=== PATIENT | male | born 1945 | race Caucasian/White ===

== ENCOUNTER 2022-05-20 14:34 | Outpatient (CLI) | payer MEDICARE, SELFPAY ==
[2022-05-21 15:17] LABS: Creatinine Urine, Random 144 mg/dL (39-259); Microalbum Creatinine Ratio Ur 7 mg/dL (0-20); Microalbumin Random Urine 1 ug/dL (0-20)
== END 2022-05-20 14:35 | disposition home or self-care (01) ==
LOC: LAB 14:38
PROVIDERS: PCP Family Medicine; Visit Provider Family Medicine
DX: E11.40 Type 2 diabetes mellitus with diabetic neuropathy, unspecified (principal); E78.5 Hyperlipidemia, unspecified; L29.9 Pruritus, unspecified
CPT/HCPCS: 80053; 80061; 82044; 83036; 84443

== ENCOUNTER → 2022-05-24 14:06 | Outpatient (BNVA) | payer MEDICARE, SELFPAY | PROVIDERS: PCP Family Medicine; Visit Provider Internal Medicine Cardiovascular Disease | DX: I42.2 Other hypertrophic cardiomyopathy (principal); Z95.810 Presence of automatic (implantable) cardiac defibrillator; E78.5 Hyperlipidemia, unspecified; E11.40 Type 2 diabetes mellitus with diabetic neuropathy, unspecified; Z79.4 Long term (current) use of insulin; Z79.84 Long term (current) use of oral hypoglycemic drugs; K21.9 Gastro-esophageal reflux disease without esophagitis | CPT/HCPCS: 93005; 99204 ==

== ENCOUNTER → 2022-06-14 09:41 | Outpatient (BNVA) | payer MEDICARE, SELFPAY | PROVIDERS: PCP Family Medicine; Visit Provider Podiatrist Foot & Ankle Surgery | DX: I73.9 Peripheral vascular disease, unspecified (principal); B35.1 Tinea unguium; G62.9 Polyneuropathy, unspecified; L84 Corns and callosities; E11.9 Type 2 diabetes mellitus without complications; Z79.4 Long term (current) use of insulin; M20.11 Hallux valgus (acquired), right foot; M20.12 Hallux valgus (acquired), left foot | CPT/HCPCS: 11056; 11721; 99204 ==

== ENCOUNTER → 2022-07-09 11:21 | Outpatient (BNVA) | payer MEDICARE, SELFPAY | PROVIDERS: PCP Family Medicine; Visit Provider Internal Medicine Cardiovascular Disease | DX: Z45.02 Encounter for adjustment and management of automatic implantable cardiac defibrillator (principal) | CPT/HCPCS: 93283 ==

== ENCOUNTER → 2022-08-23 10:48 | Outpatient (BNVA) | payer MEDICARE, OTHER, SELFPAY | PROVIDERS: PCP Family Medicine; Visit Provider Internal Medicine Cardiovascular Disease | DX: I42.2 Other hypertrophic cardiomyopathy (principal); Z95.810 Presence of automatic (implantable) cardiac defibrillator; E78.5 Hyperlipidemia, unspecified; Z79.4 Long term (current) use of insulin; G62.9 Polyneuropathy, unspecified; B35.1 Tinea unguium; L84 Corns and callosities; M20.11 Hallux valgus (acquired), right foot; M20.12 Hallux valgus (acquired), left foot | CPT/HCPCS: 11056; 11721; 99214 ==

== ENCOUNTER → 2022-10-25 09:41 | Outpatient (BNVA) | payer MEDICARE, OTHER, SELFPAY | PROVIDERS: PCP Family Medicine; Referring Provider Family Medicine; Visit Provider Internal Medicine | DX: E11.649 Type 2 diabetes mellitus with hypoglycemia without coma (principal); E78.5 Hyperlipidemia, unspecified; Z95.810 Presence of automatic (implantable) cardiac defibrillator; Z79.4 Long term (current) use of insulin; Z86.73 Personal history of transient ischemic attack (TIA), and cerebral infarction without residual deficits; Z79.02 Long term (current) use of antithrombotics/antiplatelets | CPT/HCPCS: 99204 ==

== ENCOUNTER 2022-11-01 11:42 | Outpatient (CLI) | payer MEDICARE, OTHER, SELFPAY | END 2022-11-01 11:43 | disposition home or self-care (01) | LOC: LAB 11:46 | PROVIDERS: PCP Family Medicine; Visit Provider Internal Medicine | DX: E11.42 Type 2 diabetes mellitus with diabetic polyneuropathy (principal); E78.5 Hyperlipidemia, unspecified; Z79.899 Other long term (current) drug therapy | CPT/HCPCS: 11721; 36415; 80053; 80061; 82044; 83036; 83721 ==

== ENCOUNTER → 2022-11-08 10:44 | Outpatient (BNVA) | payer MEDICARE, OTHER, SELFPAY | PROVIDERS: PCP Family Medicine; Visit Provider Internal Medicine | DX: E11.40 Type 2 diabetes mellitus with diabetic neuropathy, unspecified (principal); E11.649 Type 2 diabetes mellitus with hypoglycemia without coma; Z79.4 Long term (current) use of insulin; E78.5 Hyperlipidemia, unspecified | CPT/HCPCS: 99213; 99214 ==

== ENCOUNTER 2023-02-14 09:41 | Outpatient (CLI) | payer MEDICARE, OTHER, SELFPAY ==
[2023-02-14 10:59] LABS: Estmated Average Glucose 223; Hemoglobin A1C 9.4 % (4.0-6.0)
[2023-02-14 11:01] LABS: Alanine Aminotransferase 18 U/L (0-41); Albumin Level 3.8 g/dL (3.5-5.2); Alkaline Phosphatase 95 U/L (40-130); Anion Gap 12.8 (5-19); Aspartate Amino Transferase 17 U/L (0-40); Blood Urea Nitrogen 15 mg/dL (8-23); Calcium 8.8 mg/dL (8.5-10.5); Carbon Dioxide 23 mmol/L (22-29); Chloride 106 mmol/L (98-107); Cholesterol 183 mg/dL (0-200); Glucose 209 mg/dL (65-115); HDL Cholesterol 30 mg/dL (60-100); Osmolality Calculated 293 mOsm/kg (285-295); Potassium 3.8 mmol/L (3.5-5.1); Sodium 138 mmol/L (136-145); Total Bilirubin 0.2 mg/dL (0.15-1.2); Total Protein 6.8 g/dL (6.6-8.7); Triglycerides 811 mg/dL (0-150)
[2023-02-14 11:16] LABS: Creatinine Urine, Random 88 mg/dL (39-259); Microalbum Creatinine Ratio Ur 11 mg/dL (0-20); Microalbumin Random Urine 1 ug/dL (0-20)
[2023-02-14 11:56] LABS: LDL Cholesterol Direct 39 mg/dL (0-100)
== END 2023-02-14 09:42 | disposition home or self-care (01) ==
PROVIDERS: PCP Family Medicine; Visit Provider Internal Medicine
DX: E11.649 Type 2 diabetes mellitus with hypoglycemia without coma (principal); E78.5 Hyperlipidemia, unspecified; E11.40 Type 2 diabetes mellitus with diabetic neuropathy, unspecified; Z79.4 Long term (current) use of insulin
CPT/HCPCS: 36415; 80053; 80061; 82044; 83036; 83721; 99214

== ENCOUNTER 2023-02-19 14:00 | Emergency (ER) | payer MEDICARE, OTHER, SELFPAY ==
[2023-02-19] VITALS (8 sets, daily range): BP systolic 125–152; BP diastolic 59–76; PULSE 60–88; RESP 16–20; TEMP 36.8; O2SAT 95–99
--- NOTE | 2023-02-19 15:42 | XRR_ITS ---
PROCEDURE INFORMATION: Exam: XR Chest Exam date and time: 02/19/2023 4:24 PM Age: 78 years old Clinical indication: Pain; Chest pressure; Additional info: Cp TECHNIQUE: Imaging protocol: Radiologic exam of the chest. Views: 1 view. COMPARISON: No relevant prior studies available. FINDINGS: Tubes, catheters and devices: Dual lead pacemaker on the left. Lungs: Unremarkable. No consolidation. Pleural spaces: Unremarkable. No pleural effusion. No pneumothorax. Heart/Mediastinum: No significant cardiomegaly. Bones/joints: Visualized osseous structures show no acute abnormality. XR/XR chest 1V [id number] IMPRESSION: No acute cardiopulmonary abnormality.
--- NOTE | 2023-02-19 15:42 | ECG_ITS ---
[facility] Test Date: 2023-02-19 Pat Name: Chapito Mijares Department: Room: Gender: Male Theatre Manager: : 1945 Requested By: Emely Moya Order Number: [id number] Jacki MD: Lorraine Phoneix M.D. Measurements Intervals [place] Rate: 61 P: -30 VA: 157 QRS: -46 QRSD: 131 T: 12 QT: 474 QTc: 479 Interpretive Statements SINUS RHYTHM RIGHT BUNDLE BRANCH BLOCK [120+ ms QRS DURATION, UPRIGHT V1, 40+ ms S IN I/aVL/V4/V5/V6] LEFT ANTERIOR FASCICULAR BLOCK [QRS AXIS <= -45, QR IN I, RS IN II] No previous ECG available for comparison Electronically Signed On 02-19-2023 23:23:31 CDT by Lorraine Phoenix M.D. [id number]
[2023-02-19 16:25] LABS: Basophils # 0.2 10^3/uL (0.0-0.1); Basophils % 0.8 %; Eosinophils # 0.5 10^3/uL (0.0-0.8); Eosinophils % 2.4 %; Hematocrit 39.1 % (42.0-52.0); Hemoglobin 12.8 g/dL (11.7-16.6); Lymphocytes # 1.9 10^3/uL (0.8-4.8); Lymphocytes % 9.8 %; Mean Corpuscular HGB Conc 32.7 g/dL (30.0-36.0); Mean Corpuscular Hemoglobin 26.7 pg (28.0-34.0); Mean Corpuscular Volume 81.6 fl (80-94); Monocytes # 1.7 10^3/uL (0.2-0.9); Monocytes % 8.9 %; Neutrophils # 14.75 10^3/uL (1.8-7.7); Neutrophils % 77.5 %; Nucleated Red Blood Cells % 0 %; Platelet Count 260 10^3/cmm (130-400); Red Blood Count 4.79 10^6/uL (4.1-5.3); Red Cell Distribution Width 14.6 % (12.1-15.1)
--- NOTE | 2023-02-19 16:34 | ED_ITS ---
Documented by User: Arjun Lr 02/19/23 17:43 HPI - SOB/Dyspnea General: Chief Complaint: Shortness of Breath/Dyspnea Stated Complaint: cough, sob, chest pain Time Seen by Provider: 02/19/23 16:06 History of Present Illness: HPI Narrative: 78-year-old male presents emergency department chief complaint of midsternal left-sided chest pressure as well as shortness of breath is progressive getting worse over the last several days patient reports having a history of high blood pressure as well as a valve issue reports no prior history of ischemic heart disease reports no prior history cardiac caths does report a prior history requiring pacemaker placement patient reports having some ongoing chest pressure left-sided unrelated activity exertion eating or breathing patient reports mild shortness of breath he does not endorse any known history pneumonia bronchitis COPD asthma or emphysema patient also reports a mild productive cough with greenish sputum production. Per family at home patient has had no recent fevers or chills or any other associated symptoms he has had reduced appetite and oral intake and questionable lack of taste. Patient has not had any recent nausea vomiting or diarrhea he has had a prior COVID vaccination does not endorse any prior history of active COVID patient presents with the family to the ER for further assessment and management Associated symptoms: Reports chest pain; Deny abdominal pain, extremity pain, fever(s), nausea, palpitations or vomiting Review of Systems General: Reports: 10 or more systems reviewed and unremarkable except in HPI and below Const: Reports: change in appetite, fatigue and malaise; Denies: fever(s) or chills Eyes: Denies: change in vision or blurry vision Card: Reports: chest pain; Denies: palpitations Resp: Reports: dyspnea and productive cough GI: Denies: abdominal pain, nausea or vomiting : Denies: flank pain Musc: Denies: extremity pain or extremity swelling Skin/Breast: Denies: rash or pruritus Neuro: Denies: headache(s) Psych: Denies: anxiety or depression Shaq/Lymph: Denies: easy bleeding All/Imm: Denies: urticaria, throat swelling or facial swelling PFS ED PFSH: Medical History Depression, major, 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, uncontrolled Diabetic neuropathy GERD (gastroesophageal reflux disease) Hyperlipidemia Hypertrophic cardiomyopathy ICD (implantable cardioverter-defibrillator) in place Pacemaker Surgical History History of sinus surgery Status post excision of lipoma right axilla Family History Father Diabetes Hypertension CAD (coronary artery disease) Mother Diabetes Stroke Grandfather Dementia Son Diabetes Family/Other Lung disease Denies family history of Clotting disorder Chronic kidney disease (CKD) Suicide Anesthesia complication Bleeding disorder Cancer Social History Smoking and tobacco status: never smoked Alcohol intake: never Substance/Drug Use: never Lives independently: Yes Household members: spouse service: No Current occupational status: retired Current occupation: sales - [employer] Physical Exam Const: COMMON NORMALS: no acute distress, patient oriented x3 and healthy appearing HENMT: COMMON NORMALS: normocephalic and atraumatic HEAD & SCALP: normocephalic and atraumatic Eye: COMMON NORMALS: Equal, round and reactive pupils present and EOMs intact bilaterally PUPIL: Yes Equal, round and reactive pupils present Neck/C-Spine: COMMON NORMALS: full ROM, supple and no JVD Lymph: LYMPHATIC: no lymphadenopathy noted Chest: COMMONS NORMALS: normal inspection of the chest and normal palpation of entire chest wall Resp: COMMON NORMALS: normal respiratory effort, No retractions and clear to auscultation bilaterally EFFORT & INSPECTION: Yes able to speak in complete sentences and Yes symmetric chest movement AUSCULTATION: clear to auscultation bilaterally Cardio: COMMON NORMALS: no JVD, regular rate and regular rhythm RATE: regular rate RHYTHM: regular rhythm GI: COMMON NORMALS: Normal to inspection, nondistended, normoactive bowel sounds present, Soft to palpation and non-tender INSPECTION: Yes normal to inspection PALPATION: Yes Soft to palpation : COMMON NORMALS: Yes no CVA tenderness BLADDER/KIDNEY EXAM: Yes no CVA tenderness Back/Pelvis: COMMON NORMALS: no CVA tenderness Extremity: COMMON NORMALS: normal to inspection and full ROM Neuro: COMMON NORMALS: patient oriented x3, CN's II-XII intact bilaterally, moves all extremities and no focal motor deficits Psych: COMMON NORMALS: mental status grossly normal, Normal thought process present, cooperative and normal affect THOUGHT PROCESS: Normal thought process present Skin: COMMON NORMALS: no rashes or lesions noted GENERAL SKIN EXAM: no rashes or lesions noted Course Vital Signs: Vital signs: Vital Signs Temperature 98.2 F 02/19/23 14:12 Pulse Rate 60 02/19/23 21:01 Respiratory Rate 20 H 02/19/23 21:01 Blood Pressure 129/61 02/19/23 21:01 Pulse Oximetry 97 02/19/23 21:01 Oxygen Delivery Me thod Room Air 02/19/23 19:34 MDM - SOB/Dyspnea Medical Decision Making Due to patient's symptoms and condition IV established basic lab work imaging will be obtained we will continue to follow. EKG does not reveal any obvious acute changes. We will continue to follow patient's first troponin was found to be elevated in the 40s patient also with a white count of 19,000 will be obtained respiratory pathogen screen test as well as a COVID swab for further eval of respiratory issues patient also be provided some Decadron for shortness of breath. Underlying concerns of pneumonia versus bronchitis versus congestive heart failure versus others prominent we will continue to follow due to did patient's dyspnea and neck COVID-negative we will be obtaining a CTA of the chest for further eval . this patient was signed out to my colleague Dr. Blum at 1800 Lab Data 02/19/23 16:15 02/19/23 16:15 Labs/Radiology: Radiology Impressions Chest X-Ray 02/19/23 15:42 IMPRESSION: No acute cardiopulmonary abnormality. Chest CTA 02/19/23 17:30 IMPRESSION: 1. No CT findings to indicate pulmonary embolus. 2. Lung windows demonstrate small amount scattered ill-defined ground-glass opacity, which may indicate minimal edema or inflammation. No focal infiltrate or consolidation or effusion. 3. Mild atherosclerotic disease thoracic aorta and coronary arteries. 4. Upper limits of normal cardiac size. Dual lead pacemaker on the left. Laboratory Results WBC 19.0 10^3/uL (4.0-10.0) H 02/19/23 16:15 RBC 4.79 10^6/uL (4.1-5.3) 02/19/23 16:15 Hgb 12.8 g/dL (11.7-16.6) 02/19/23 16:15 Hct 39.1 % (42.0-52.0) L 02/19/23 16:15 MCV 81.6 fl (80-94) 02/19/23 16:15 MCH 26.7 pg (28.0-34.0) L 02/19/23 16:15 MCHC 32.7 g/dL (30.0-36.0) 02/19/23 16:15 RDW 14.6 % (12.1-15.1) 02/19/23 16:15 Plt Count 260 10^3/cmm (130-400) 02/19/23 16:15 MPV 10.0 fL (7.4-10.4) 02/19/23 16:15 Neut % (Auto) 77.5 % 02/19/23 16:15 Lymph % (Auto) 9.8 % 02/19/23 16:15 Campbell % (Auto) 8.9 % 02/19/23 16:15 Eos % (Auto) 2.4 % 02/19/23 16:15 Baso % (Auto) 0.8 % 02/19/23 16:15 Neut # (Auto) 14.75 10^3/uL (1.8-7.7) H 02/19/23 16:15 Lymph # (Auto) 1.9 10^3/uL (0.8-4.8) 02/19/23 16:15 Campbell # (Auto) 1.7 10^3/uL (0.2-0.9) H 02/19/23 16:15 Eos # (Auto) 0.5 10^3/uL (0.0-0.8) 02/19/23 16:15 Baso # (Auto) 0.2 10^3/uL (0.0-0.1) H 02/19/23 16:15 Nucleated RBC % (auto) 0 % 02/19/23 16:15 Nucleated RBCs # 0.0 /100WBC 02/19/23 16:15 Sodium 131 mmol/L (136-145) L 02/19/23 16:15 Potassium 4.2 mmol/L (3.5-5.1) 02/19/23 16:15 Chloride 98 mmol/L (98-107) 02/19/23 16:15 Carbon Dioxide 21 mmol/L (22-29) L 02/19/23 16:15 Anion Gap 16.2 (5-19) 02/19/23 16:15 BUN 12 mg/dL (8-23) 02/19/23 16:15 Creatinine 0.9 mg/dL (0.7-1.2) 02/19/23 16:15 GFR Calculation Not Reportable 02/19/23 16:15 Glucose 304 mg/dL (65-115) H 02/19/23 16:15 Calculated Osmolality 283 mOsm/kg (285-295) L 02/19/23 16:15 Calcium 9.0 mg/dL (8.5-10.5) 02/19/23 16:15 Total Bilirubin 0.6 mg/dL (0.15-1.2) 02/19/23 16:15 AST 13 U/L (0-40) 02/19/23 16:15 ALT 17 U/L (0-41) 02/19/23 16:15 Alkaline Phosphatase 90 U/L (40-130) 02/19/23 16:15 Troponin T Baseline 41 ng/L (0-15) H 02/19/23 16:15 Troponin T 120 Minute 36.63 ng/L (0-15) H 02/19/23 18:08 Delta Troponin T -4.37 ABS# (0-10) L 02/19/23 18:08 NT-Pro-B Natriuret Pep 433 pg/mL (0-450) 02/19/23 16:15 Total Protein 7.5 g/dL (6.6-8.7) 02/19/23 16:15 Albumin 3.9 g/dL (3.5-5.2) 02/19/23 16:15 Globulin 3.6 g/dL (1.3-4.6) 02/19/23 16:15 Urine Color Dark yellow (Yellow) 02/19/23 17:15 Urine Appearance Clear (CLEAR) 02/19/23 17:15 Urine pH 7 (5-7) 02/19/23 17:15 Ur Specific Clarissa 1.010 (1.005-1.030) 02/19/23 17:15 Urine Protein Neg (Negative) 02/19/23 17:15 Urine Glucose (UA) 4+ (Normal) H 02/19/23 17:15 Urine Ketones 1+ (Negative) H 02/19/23 17:15 Urine Blood Neg (Negative) 02/19/23 17:15 Urine Nitrate Negative (Negative) 02/19/23 17:15 Urine Bilirubin Neg (Negative) 02/19/23 17:15 Urine Urobilinogen Norm mg/dL (Negative) 02/19/23 17:15 Ur Leukocyte Esterase Trace (Negative) H 02/19/23 17:15 Urine RBC None /hpf (0-2) 02/19/23 17:15 Urine WBC 5-10 /hpf (0-5) H 02/19/23 17:15 Ur Squamous Epith Cells None /hpf (0-5) 02/19/23 17:15 Amorphous Sediment Not Reportable 02/19/23 17:15 Urine Bacteria 1+ /hpf (NONE) H 02/19/23 17:15 Nasal Influ A H1 2009 PCR Not detected (NOT DETECT) 02/19/23 17:34 Adenovirus (PCR) Not detected (NOT DETECT) 02/19/23 17:34 C. pneumoniae DNA (PCR) Not detected (NOT DETECT) 02/19/23 17:34 Coronavirus 229E (PCR) Not detected (NOT DETECT) 02/19/23 17:34 Human Metapneumovir PCR Not detected (NOT DETECT) 02/19/23 17:34 Influenza A (H1) PCR Not detected (NOT DETECT) 02/19/23 17:34 Influenza A (H3) PCR Not detected (NOT DETECT) 02/19/23 17:34 Influenza Type A (PCR) Not detected (NOT DETECT) 02/19/23 17:34 Influenza Type B (PCR) Not detected (NOT DETECT) 02/19/23 17:34 M. pneumoniae (PCR) Not detected (NOT DETECT) 02/19/23 17:34 Parainfluenza 1 (PCR) Not detected (NOT DETECT) 02/19/23 17:34 Parainfluenza 2 (PCR) Not detected (NOT DETECT) 02/19/23 17:34 Parainfluenza 3 (PCR) Not detected (NOT DETECT) 02/19/23 17:34 Parainfluenza 4 (PCR) Not detected (NOT DETECT) 02/19/23 17:34 RSV Type A (PCR) Not detected (NOT DETECT) 02/19/23 17:34 RSV Type B (PCR) Not detected (NOT DETECT) 02/19/23 17:34 Entero/Rhino (PCR) Not detected (NOT DETECT) 02/19/23 17:34 SARS-CoV-2 (PCR) Not detected (NOT DETECT) 02/19/23 17:34 SARS-CoV-2 Ag (Rapid) negative (Negative) 02/19/23 16:45 Discharge Plan Discharge Patient Disposition: Home Clinical Impression: Atypical pneumonia, Acute pleurisy without pleural effusion Condition: Stable Prescriptions: New ketorolac 10 mg tablet 10 mg PO TID PRN (Reason: pain) Qty: 10 0RF albuterol sulfate 90 mcg/actuation HFA aerosol inhaler 2 inh INHALATION Q4H PRN (Reason: shortness of breath or wheezing) Qty: 6.7 1RF levofloxacin 750 mg tablet 750 mg PO DAILY 7 Days Qty: 7 0RF No Action fluoxetine 20 mg capsule 20 mg PO DAILY gabapentin 300 mg capsule 300 mg PO BID aspirin 81 mg tablet,delayed release (DR/EC) 81 mg PO DAILY diphenhydramine HCl 25 mg tablet 25 mg PO DAILY PRN disopyramide phosphate 150 mg capsule 150 mg PO BID Rx Instructions: space evenly during waking hours Ultra CoQ10 75 mg capsule 300 mg PO DAILY mecobalamin (vitamin B12) 5,000 mcg tablet,disintegrating 5,000 mcg PO DAILY hydrocortisone 1 % solution 1 applic topical BID PRN (DME) diabetic shoes See Rx Instructions .Route .MEDSUPPLY Qty: 1 0RF Rx Instructions: As directed (DME) custom heat molded inserts See Rx Instructions .Route .MEDSUPPLY Qty: 1 0RF Rx Instructions: As directed (DME) diabetic shoes with 3 custom inserts See Rx Instructions .Route .MEDSUPPLY Qty: 1 0RF Rx Instructions: As directed (DME) insulin syringe-needle U-100 [BD Insulin Syringe Safety-Rey] 1 mL 29 gauge x 1/2 syringe See Rx Instructions .Route Qty: 500 0RF Rx Instructions: Inject insulin, Twice, daily. Novolin 70/30 U-100 Insulin 100 unit/mL (70-30) suspension 290 unit SUBCUT BID 30 Days Qty: 174 5RF Rx Instructions: 150units am 140 units pm topiramate 50 mg tablet See Rx Instructions .ROUTE .COMPLEX Qty: 180 0RF Dose Instruction: Take 1 tablet by mouth twice daily for 90 days Rx Instructions: Take 1 tablet by mouth twice daily for 90 days metoprolol succinate 50 mg tablet extended release 24 hr See Rx Instructions .ROUTE .COMPLEX Qty: 30 0RF Dose Instruction: Take 1 tablet by mouth once daily Rx Instructions: Take 1 tablet by mouth once daily pantoprazole 20 mg tablet,delayed release (DR/EC) See Rx Instructions .ROUTE .COMPLEX Qty: 30 0RF Dose Instruction: Take 1 tablet by mouth once daily Rx Instructions: Take 1 tablet by mouth once daily clopidogrel 75 mg tablet See Rx Instructions .ROUTE .COMPLEX Qty: 90 0RF Dose Instruction: Take 1 tablet by mouth once daily Rx Instructions: Take 1 tablet by mouth once daily atorvastatin 20 mg tablet See Rx Instructions .ROUTE .COMPLEX Qty: 90 0RF Dose Instruction: Take 1 tablet by mouth once daily Rx Instructions: Take 1 tablet by mouth once daily Discharge Orders: Discharge ED (Routine); Ordered 02/19/23 Ordered By: Andi Blum Referrals: Tisha Funk MD [Primary Care Provider] - Patient Instructions: Pneumonia (ED), Pain Management Activity Restrictions/Additional Instructions: Return for worsening shortness of breath, fever despite 2-3 more doses of antibiotics, worsening pain despite treatment, other concerning symptoms. Watch your sugar closely for the next several days. Follow-up with your doctor next w [facility]. 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, uncontrolled Diabetic neuropathy GERD (gastroesophageal reflux disease) Hyperlipidemia Hypertrophic cardiomyopathy ICD (implantable cardioverter-defibrillator) in place Pacemaker Surgical History History of sinus surgery Status post excision of lipoma right axilla Family History Father Diabetes Hypertension CAD (coronary artery disease) Mother Diabetes Stroke Grandfather Dementia Son Diabetes Family/Other Lung disease Denies family history of Clotting disorder Chronic kidney disease (CKD) Suicide Anesthesia complication Bleeding disorder Cancer Social History Smoking and tobacco status: never smoked Alcohol intake: never Substance/Drug Use: never Lives independently: Yes Household members: spouse service: No Current occupational status: retired Current occupation: [employer] Course Vital Signs: Vital signs: Vital Signs Temperature 98.2 F 02/19/23 14:12 Pulse Rate 60 02/19/23 21:01 Respiratory Rate 20 H 02/19/23 21:01 Blood Pressure 129/61 02/19/23 21:01 Pulse Oximetry 97 02/19/23 21:01 Oxygen Delivery Me thod Room Air 02/19/23 19:34 MDM - SOB/Dyspnea Medical Decision Making Due to patient's symptoms and condition IV established basic lab work imaging will be obtained we will continue to follow. EKG does not reveal any obvious acute changes. We will continue to follow patient's first troponin was found to be elevated in the 40s patient also with a white count of 19,000 will be obtained respiratory pathogen screen test as well as a COVID swab for further eval of respiratory issues patient also be provided some Decadron for shortness of breath. Underlying concerns of pneumonia versus bronchitis versus congestive heart failure versus others prominent we will continue to follow due to did patient's dyspnea and neck COVID-negative we will be obtaining a CTA of the chest for further eval . this patient was signed out to my colleague Dr. Blum at 1800 Patient checked out to me by Dr. Gabriel. He is breathing room air currently. His saturations are 95% and above. CTA of the chest shows scattered diffuse infiltrates, no focal pneumonia. No PE. His white blood cell count is 19 which is concerning. Viral panel for respiratory viruses is negative. Because of this, we will elect to treat with antibiotics. Steroids will not be given, as he has significant hyperglycemia. He notes that he has not taken his insulin in 2 days. He will be prescribed an inhaler. He does have some pleuritic left- sided chest discomfort, for which she will be prescribed a short course of Toradol. To return for any worsening symptoms. Lab Data 02/19/23 16:15 02/19/23 16:15 Labs/Radiology: Radiology Impressions Chest X-Ray 02/19/23 15:42 IMPRESSION: No acute cardiopulmonary abnormality. Chest CTA 02/19/23 17:30 IMPRESSION: 1. No CT findings to indicate pulmonary embolus. 2. Lung windows demonstrate small amount scattered ill-defined ground-glass opacity, which may indicate minimal edema or inflammation. No focal infiltrate or consolidation or effusion. 3. Mild atherosclerotic disease thoracic aorta and coronary arteries. 4. Upper limits of normal cardiac size. Dual lead pacemaker on the left. Laboratory Results WBC 19.0 10^3/uL (4.0-10.0) H 02/19/23 16:15 RBC 4.79 10^6/uL (4.1-5.3) 02/19/23 16:15 Hgb 12.8 g/dL (11.7-16.6) 02/19/23 16:15 Hct 39.1 % (42.0-52.0) L 02/19/23 16:15 MCV 81.6 fl (80-94) 02/19/23 16:15 MCH 26.7 pg (28.0-34.0) L 02/19/23 16:15 MCHC 32.7 g/dL (30.0-36.0) 02/19/23 16:15 RDW 14.6 % (12.1-15.1) 02/19/23 16:15 Plt Count 260 10^3/cmm (130-400) 02/19/23 16:15 MPV 10.0 fL (7.4-10.4) 02/19/23 16:15 Neut % (Auto) 77.5 % 02/19/23 16:15 Lymph % (Auto) 9.8 % 02/19/23 16:15 Campbell % (Auto) 8.9 % 02/19/23 16:15 Eos % (Auto) 2.4 % 02/19/23 16:15 Baso % (Auto) 0.8 % 02/19/23 16:15 Neut # (Auto) 14.75 10^3/uL (1.8-7.7) H 02/19/23 16:15 Lymph # (Auto) 1.9 10^3/uL (0.8-4.8) 02/19/23 16:15 Campbell # (Auto) 1.7 10^3/uL (0.2-0.9) H 02/19/23 16:15 Eos # (Auto) 0.5 10^3/uL (0.0-0.8) 02/19/23 16:15 Baso # (Auto) 0.2 10^3/uL (0.0-0.1) H 02/19/23 16:15 Nucleated RBC % (auto) 0 % 02/19/23 16:15 Nucleated RBCs # 0.0 /100WBC 02/19/23 16:15 Sodium 131 mmol/L (136-145) L 02/19/23 16:15 Potassium 4.2 mmol/L (3.5-5.1) 02/19/23 16:15 Chloride 98 mmol/L (98-107) 02/19/23 16:15 Carbon Dioxide 21 mmol/L (22-29) L 02/19/23 16:15 Anion Gap 16.2 (5-19) 02/19/23 16:15 BUN 12 mg/dL (8-23) 02/19/23 16:15 Creatinine 0.9 mg/dL (0.7-1.2) 02/19/23 16:15 GFR Calculation Not Reportable 02/19/23 16:15 Glucose 304 mg/dL (65-115) H 02/19/23 16:15 Calculated Osmolality 283 mOsm/kg (285-295) L 02/19/23 16:15 Calcium 9.0 mg/dL (8.5-10.5) 02/19/23 16:15 Total Bilirubin 0.6 mg/dL (0.15-1.2) 02/19/23 16:15 AST 13 U/L (0-40) 02/19/23 16:15 ALT 17 U/L (0-41) 02/19/23 16:15 Alkaline Phosphatase 90 U/L (40-130) 02/19/23 16:15 Troponin T Baseline 41 ng/L (0-15) H 02/19/23 16:15 Troponin T 120 Minute 36.63 ng/L (0-15) H 02/19/23 18:08 Delta Troponin T -4.37 ABS# (0-10) L 02/19/23 18:08 NT-Pro-B Natriuret Pep 433 pg/mL (0-450) 02/19/23 16:15 Total Protein 7.5 g/dL (6.6-8.7) 02/19/23 16:15 Albumin 3.9 g/dL (3.5-5.2) 02/19/23 16:15 Globulin 3.6 g/dL (1.3-4.6) 02/19/23 16:15 Urine Color Dark yellow (Yellow) 02/19/23 17:15 Urine Appearance Clear (CLEAR) 02/19/23 17:15 Urine pH 7 (5-7) 02/19/23 17:15 Ur Specific Clarissa 1.010 (1.005-1.030) 02/19/23 17:15 Urine Protein Neg (Negative) 02/19/23 17:15 Urine Glucose (UA) 4+ (Normal) H 02/19/23 17:15 Urine Ketones 1+ (Negative) H 02/19/23 17:15 Urine Blood Neg (Negative) 02/19/23 17:15 Urine Nitrate Negative (Negative) 02/19/23 17:15 Urine Bilirubin Neg (Negative) 02/19/23 17:15 Urine Urobilinogen Norm mg/dL (Negative) 02/19/23 17:15 Ur Leukocyte Esterase Trace (Negative) H 02/19/23 17:15 Urine RBC None /hpf (0-2) 02/19/23 17:15 Urine WBC 5-10 /hpf (0-5) H 02/19/23 17:15 Ur Squamous Epith Cells None /hpf (0-5) 02/19/23 17:15 Amorphous Sediment Not Reportable 02/19/23 17:15 Urine Bacteria 1+ /hpf (NONE) H 02/19/23 17:15 Nasal Influ A H1 2009 PCR Not detected (NOT DETECT) 02/19/23 17:34 Adenovirus (PCR) Not detected (NOT DETECT) 02/19/23 17:34 C. pneumoniae DNA (PCR) Not detected (NOT DETECT) 02/19/23 17:34 Coronavirus 229E (PCR) Not detected (NOT DETECT) 02/19/23 17:34 Human Metapneumovir PCR Not detected (NOT DETECT) 02/19/23 17:34 Influenza A (H1) PCR Not detected (NOT DETECT) 02/19/23 17:34 Influenza A (H3) PCR Not detected (NOT DETECT) 02/19/23 17:34 Influenza Type A (PCR) Not detected (NOT DETECT) 02/19/23 17:34 Influenza Type B (PCR) Not detected (NOT DETECT) 02/19/23 17:34 M. pneumoniae (PCR) Not detected (NOT DETECT) 02/19/23 17:34 Parainfluenza 1 (PCR) Not detected (NOT DETECT) 02/19/23 17:34 Parainfluenza 2 (PCR) Not detected (NOT DETECT) 02/19/23 17:34 Parainfluenza 3 (PCR) Not detected (NOT DETECT) 02/19/23 17:34 Parainfluenza 4 (PCR) Not detected (NOT DETECT) 02/19/23 17:34 RSV Type A (PCR) Not detected (NOT DETECT) 02/19/23 17:34 RSV Type B (PCR) Not detected (NOT DETECT) 02/19/23 17:34 Entero/Rhino (PCR) Not detected (NOT DETECT) 02/19/23 17:34 SARS-CoV-2 (PCR) Not detected (NOT DETECT) 02/19/23 17:34 SARS-CoV-2 Ag (Rapid) negative (Negative) 02/19/23 16:45 Discharge Plan Discharge Patient Disposition: Home Clinical Impression: Atypical pneumonia, Acute pleurisy without pleural effusion Condition: Stable Prescriptions: New ketorolac 10 mg tablet 10 mg PO TID PRN (Reason: pain) Qty: 10 0RF albuterol sulfate 90 mcg/actuation HFA aerosol inhaler 2 inh INHALATION Q4H PRN (Reason: shortness of breath or wheezing) Qty: 6.7 1RF levofloxacin 750 mg tablet 750 mg PO DAILY 7 Days Qty: 7 0RF No Action fluoxetine 20 mg capsule 20 mg PO DAILY gabapentin 300 mg capsule 300 mg PO BID aspirin 81 mg tablet,delayed release (DR/EC) 81 mg PO DAILY diphenhydramine HCl 25 mg tablet 25 mg PO DAILY PRN disopyramide phosphate 150 mg capsule 150 mg PO BID Rx Instructions: space evenly during waking hours Ultra CoQ10 75 mg capsule 300 mg PO DAILY mecobalamin (vitamin B12) 5,000 mcg tablet,disintegrating 5,000 mcg PO DAILY hydrocortisone 1 % solution 1 applic topical BID PRN (DME) diabetic shoes See Rx Instructions .Route .MEDSUPPLY Qty: 1 0RF Rx Instructions: As directed (DME) custom heat molded inserts See Rx Instructions .Route .MEDSUPPLY Qty: 1 0RF Rx Instructions: As directed (DME) diabetic shoes with 3 custom inserts See Rx Instructions .Route .MEDSUPPLY Qty: 1 0RF Rx Instructions: As directed (DME) insulin syringe-needle U-100 [BD Insulin Syringe Safety-Rey] 1 mL 29 gauge x 1/2 syringe See Rx Instructions .Route Qty: 500 0RF Rx Instructions: Inject insulin, Twice, daily. Novolin 70/30 U-100 Insulin 100 unit/mL (70-30) suspension 290 unit SUBCUT BID 30 Days Qty: 174 5RF Rx Instructions: 150units am 140 units pm topiramate 50 mg tablet See Rx Instructions .ROUTE .COMPLEX Qty: 180 0RF Dose Instruction: Take 1 tablet by mouth twice daily for 90 days Rx Instructions: Take 1 tablet by mouth twice daily for 90 days metoprolol succinate 50 mg tablet extended release 24 hr See Rx Instructions .ROUTE .COMPLEX Qty: 30 0RF Dose Instruction: Take 1 tablet by mouth once daily Rx Instructions: Take 1 tablet by mouth once daily pantoprazole 20 mg tablet,delayed release (DR/EC) See Rx Instructions .ROUTE .COMPLEX Qty: 30 0RF Dose Instruction: Take 1 tablet by mouth once daily Rx Instructions: Take 1 tablet by mouth once daily clopidogrel 75 mg tablet See Rx Instructions .ROUTE .COMPLEX Qty: 90 0RF Dose Instruction: Take 1 tablet by mouth once daily Rx Instructions: Take 1 tablet by mouth once daily atorvastatin 20 mg tablet See Rx Instructions .ROUTE .COMPLEX Qty: 90 0RF Dose Instruction: Take 1 tablet by mouth once daily Rx Instructions: Take 1 tablet by mouth once daily Discharge Orders: Discharge ED (Routine); Ordered 02/19/23 Ordered By: Andi Blum Referrals: Tisha Funk MD [Primary Care Provider] - Patient Instructions: Pneumonia (ED), Pain Management Activity Restrictions/Additional Instructions: Return for worsening shortness of breath, fever despite 2-3 more doses of antibiotics, worsening pain despite treatment, other concerning symptoms. Watch your sugar closely for the next several days. Follow-up with your doctor next week. Coding Level of Care Code ED Supervisor [employer] for Har[facility] Nicolas
[2023-02-19 16:54] LABS: Troponin(5th) Baseline 41 ng/L (0-15)
[2023-02-19 17:00] LABS: Alanine Aminotransferase 17 U/L (0-41); Albumin Level 3.9 g/dL (3.5-5.2); Alkaline Phosphatase 90 U/L (40-130); Anion Gap 16.2 (5-19); Aspartate Amino Transferase 13 U/L (0-40); Blood Urea Nitrogen 12 mg/dL (8-23); Carbon Dioxide 21 mmol/L (22-29); Chloride 98 mmol/L (98-107); Globulin 3.6 g/dL (1.3-4.6); Glucose 304 mg/dL (65-115); NT Pro B Type Natriuretic Pept 433 pg/mL (0-450); Osmolality Calculated 283 mOsm/kg (285-295); Potassium 4.2 mmol/L (3.5-5.1); Sodium 131 mmol/L (136-145); Total Bilirubin 0.6 mg/dL (0.15-1.2); Total Protein 7.5 g/dL (6.6-8.7)
[2023-02-19 17:17] LABS: SARS Covid-2 Antigen negative (Negative)
[2023-02-19] MEDS: aspirin 81 mg Chew Tablet 324 MG PO (17:28)
--- NOTE | 2023-02-19 17:30 | CTR_ITS ---
PROCEDURE INFORMATION: Exam: CTA Chest With Contrast Exam date and time: 02/19/2023 6:15 PM Age: 78 years old Clinical indication: Shortness of breath; Additional info: SOB with chest pain and elevated trop TECHNIQUE: Imaging protocol: Computed tomographic angiography of the chest with contrast. Exam focused on the arteries. 3D rendering (Not supervised by radiologist): MIP and/or 3D reconstructed images were created by the technologist. Radiation optimization: All CT scans at this facility use at least one of these dose optimization techniques: automated exposure control; mA and/or kV adjustment per patient size (includes targeted exams where dose is matched to clinical indication); or iterative reconstruction. Contrast material: OMNI 350; Contrast volume: 70 ml; Contrast route: INTRAVENOUS (IV); REPORTING DATA: Count of CT and Cardiac NM exams in prior 12 months: This patient has received 0 known CTs and 0 known cardiac nuclear medicine studies in the 12 months prior to the current study. COMPARISON: CR (CHEST, ) 02/19/2023 4:24 PM RADIATION DOSE METRICS: Total DLP (mGy-cm): 431.12 FINDINGS: Tubes, catheters and devices: Dual lead pacemaker seen on the left with leads in the right atrium and right ventricle. Pulmonary arteries: No significant hypodense filling defects are seen within the pulmonary arteries to indicate pulmonary embolus. Aorta: Mild arteriosclerosis of the thoracic aorta. No aneurysm. Lungs: Lung windows demonstrate small amount of scattered ill-defined ground-glass. No focal infiltrate or consolidation. No mass identified. Pleural spaces: No pleural effusion. No pneumothorax. Heart: Cardiac size is upper limits. Mild coronary artery calcification. No pericardial effusion. Lymph nodes: Nonspecific lymph nodes within the mediastinum, largest measuring 15 mm in the retrocaval pretracheal mediastinum. Bones/joints: Spondylotic change thoracic. Soft tissues: Unremarkable. Other findings: Images through the upper-most abdomen show no acute abnormality. CT/CT angio chest PE protcl [id number] IMPRESSION: 1. No CT findings to indicate pulmonary embolus. 2. Lung windows demonstrate small amount scattered ill-defined ground-glass opacity, which may indicate minimal edema or inflammation. No focal infiltrate or consolidation or effusion. 3. Mild atherosclerotic disease thoracic aorta and coronary arteries. 4. Upper limits of normal cardiac size. Dual lead pacemaker on the left.
[2023-02-19 17:39] LABS: Urine Appearance Clear (CLEAR); Urine Color Dark Yellow (Yellow); pH Urine 7 (5-7)
[2023-02-19 17:40] LABS: Add Urine Microscopic? YES; Bilirubin Urine Neg (Negative); Blood Urine Neg (Negative); Glucose Urine UA 4+ (Normal); Ketones Urine 1+ (Negative); Leukocyte Esterase Urine Trace (Negative); Nitrate Urine Negative (Negative); Protein Urine Neg (Negative); Urobilinogen Urine Norm (Negative)
[2023-02-19 17:41] LABS: Add Urine Culture? No; Bacteria Urine 1+ /hpf
[2023-02-19] MEDS: iohexol 350 mg/mL 500 mL Btl (per mL) IV (18:17)
[2023-02-19 18:43] LABS: Troponin 5 2HR 36.63 ng/L (0-15)
[2023-02-19 18:44] LABS: Troponin 5 2HR Delta -4.37 ABS# (0-10)
[2023-02-19 19:28] LABS: Adenovirus Not Detected (NOT DETECT); Chlamydia Pneumoniae Not Detected (NOT DETECT); Coronavirus 229E,HKU1,NL63,OC4 Not Detected (NOT DETECT); Human Metapneumovirus Not Detected (NOT DETECT); Human Rhinovirus/Enterovirus Not Detected (NOT DETECT); Influenza A Not Detected (NOT DETECT); Influenza A H1 Not Detected (NOT DETECT); Influenza A H1-2009 Not Detected (NOT DETECT); Influenza A H3 Not Detected (NOT DETECT); Influenza B Not Detected (NOT DETECT); Mycoplasma Pneumoniae Not Detected (NOT DETECT); Parainfluenza Virus Type 1 Not Detected (NOT DETECT); Parainfluenza Virus Type 2 Not Detected (NOT DETECT); Parainfluenza Virus Type 3 Not Detected (NOT DETECT); Parainfluenza Virus Type 4 Not Detected (NOT DETECT); Respiratory Syncytial Virus A Not Detected (NOT DETECT); Respiratory Syncytial Virus B Not Detected (NOT DETECT); SARS-COV-2 Not Detected (NOT DETECT)
[2023-02-19] MEDS: ketorolac 10 mg Tablet PO (20:52)
[2023-02-19] MEDS: levoFLOXacin 750 mg Tablet PO (20:53)
== END 2023-02-19 21:03 | disposition home or self-care (01) ==
PROVIDERS: Emergency Medicine; Physician Assistant; Emergency Provider Emergency Medicine; PCP Family Medicine
DX: J18.8 Other pneumonia, unspecified organism (principal); R09.1 Pleurisy; Z79.82 Long term (current) use of aspirin; Z79.4 Long term (current) use of insulin; Z79.02 Long term (current) use of antithrombotics/antiplatelets; Z20.822 Contact with and (suspected) exposure to COVID-19; E11.9 Type 2 diabetes mellitus without complications; E78.5 Hyperlipidemia, unspecified; Z95.810 Presence of automatic (implantable) cardiac defibrillator
CPT/HCPCS: 36415; 71045; 71275; 80053; 81001; 83880; 84484; 85025; 87426; 87486; 87581; 87633; 93005; 99285; Q9967

== ENCOUNTER → 2023-02-28 09:56 | Outpatient (BNVA) | payer MEDICARE, OTHER, SELFPAY | PROVIDERS: PCP Family Medicine; Visit Provider Podiatrist Foot & Ankle Surgery | DX: B35.1 Tinea unguium (principal); G62.9 Polyneuropathy, unspecified; I73.9 Peripheral vascular disease, unspecified; L84 Corns and callosities; M20.11 Hallux valgus (acquired), right foot; M20.12 Hallux valgus (acquired), left foot | CPT/HCPCS: 11721 ==

== ENCOUNTER → 2023-03-14 11:42 | Outpatient (BNVA) | payer MEDICARE, OTHER, SELFPAY | PROVIDERS: PCP Family Medicine; Visit Provider Internal Medicine Cardiovascular Disease | DX: I42.2 Other hypertrophic cardiomyopathy (principal); Z95.810 Presence of automatic (implantable) cardiac defibrillator; E78.5 Hyperlipidemia, unspecified | CPT/HCPCS: 99214 ==

== ENCOUNTER → 2023-03-16 14:03 | Outpatient (BNVA) | payer MEDICARE, OTHER, SELFPAY | PROVIDERS: PCP Family Medicine; Visit Provider Family Medicine | DX: R41.3 Other amnesia (principal); E11.40 Type 2 diabetes mellitus with diabetic neuropathy, unspecified | CPT/HCPCS: 80053; 82607; 84443; 85025; 86592 ==

== ENCOUNTER → 2023-03-21 10:11 | Outpatient (BNVA) | payer MEDICARE, OTHER, SELFPAY | PROVIDERS: PCP Family Medicine; Visit Provider Internal Medicine | DX: E11.649 Type 2 diabetes mellitus with hypoglycemia without coma (principal); E78.5 Hyperlipidemia, unspecified; Z79.4 Long term (current) use of insulin | CPT/HCPCS: 99214 ==

== ENCOUNTER → 2023-05-06 09:59 | Outpatient (BNVA) | payer MEDICARE, SELFPAY | PROVIDERS: PCP Family Medicine; Visit Provider Podiatrist Foot & Ankle Surgery | DX: B35.1 Tinea unguium (principal); G62.9 Polyneuropathy, unspecified; I73.9 Peripheral vascular disease, unspecified; L84 Corns and callosities; E11.42 Type 2 diabetes mellitus with diabetic polyneuropathy; M20.11 Hallux valgus (acquired), right foot; M20.12 Hallux valgus (acquired), left foot; Z79.4 Long term (current) use of insulin | CPT/HCPCS: 11721 ==

== ENCOUNTER → 2023-08-02 14:31 | Outpatient (BNVA) | payer MEDICARE, SELFPAY | PROVIDERS: PCP Family Medicine; Visit Provider Podiatrist Foot & Ankle Surgery | DX: B35.1 Tinea unguium (principal); G62.9 Polyneuropathy, unspecified; I73.9 Peripheral vascular disease, unspecified; L84 Corns and callosities; M20.11 Hallux valgus (acquired), right foot; M20.12 Hallux valgus (acquired), left foot; Z79.4 Long term (current) use of insulin | CPT/HCPCS: 11721 ==

== ENCOUNTER → 2023-09-27 12:42 | Outpatient (BNVA) | payer MEDICARE, SELFPAY | PROVIDERS: PCP Family Medicine; Visit Provider Internal Medicine Cardiovascular Disease | DX: Z79.01 Long term (current) use of anticoagulants (principal); R53.1 Weakness; R53.83 Other fatigue; R06.02 Shortness of breath; N18.9 Chronic kidney disease, unspecified; Z79.899 Other long term (current) drug therapy; I10 Essential (primary) hypertension | CPT/HCPCS: 36415; 80053; 83880; 84443; 85025; 99214 ==

== ENCOUNTER → 2023-11-01 14:00 | Outpatient (BNVA) | payer MEDICARE, SELFPAY | PROVIDERS: PCP Family Medicine; Visit Provider Podiatrist Foot & Ankle Surgery | DX: B35.1 Tinea unguium (principal); G62.9 Polyneuropathy, unspecified; I73.9 Peripheral vascular disease, unspecified; L84 Corns and callosities; M20.11 Hallux valgus (acquired), right foot; M20.12 Hallux valgus (acquired), left foot | CPT/HCPCS: 11721 ==

== ENCOUNTER → 2023-11-18 12:21 | Outpatient (BNVA) | payer MEDICARE, OTHER, SELFPAY | PROVIDERS: PCP Family Medicine; Visit Provider Internal Medicine | DX: E11.649 Type 2 diabetes mellitus with hypoglycemia without coma; E78.2 Mixed hyperlipidemia; Z79.4 Long term (current) use of insulin | CPT/HCPCS: 80053; 80061; 83036; 83721; 99214 ==

== ENCOUNTER → 2024-01-03 13:45 | Outpatient (BNVA) | payer MEDICARE, OTHER, SELFPAY | PROVIDERS: PCP Family Medicine; Visit Provider Podiatrist Foot & Ankle Surgery | DX: B35.1 Tinea unguium (principal); G62.9 Polyneuropathy, unspecified; I73.9 Peripheral vascular disease, unspecified; L84 Corns and callosities; E11.42 Type 2 diabetes mellitus with diabetic polyneuropathy; M20.12 Hallux valgus (acquired), left foot; M20.11 Hallux valgus (acquired), right foot; Z79.4 Long term (current) use of insulin | CPT/HCPCS: 11721 ==

== ENCOUNTER 2024-02-14 12:21 | Outpatient (CLI) | payer MEDICARE, OTHER, SELFPAY ==
[2024-02-14 13:17] LABS: Estmated Average Glucose 289; Hemoglobin A1C 11.7 % (4.0-6.0)
[2024-02-14 13:20] LABS: Alanine Aminotransferase 16 U/L (0-41); Albumin Level 3.8 g/dL (3.5-5.2); Alkaline Phosphatase 94 U/L (40-130); Anion Gap 13.7 (5-19); Aspartate Amino Transferase 18 U/L (0-40); Blood Urea Nitrogen 11 mg/dL (8-23); Calcium 8.7 mg/dL (8.5-10.5); Carbon Dioxide 25 mmol/L (22-29); Chloride 98 mmol/L (98-107); Cholesterol 241 mg/dL (0-200); Globulin 3.5 g/dL (1.3-4.6); Glucose 352 mg/dL (65-115); HDL Cholesterol 33 mg/dL (60-100); Osmolality Calculated 289 mOsm/kg (285-295); Potassium 3.7 mmol/L (3.5-5.1); Sodium 133 mmol/L (136-145); Total Bilirubin 0.2 mg/dL (0.15-1.2); Total Protein 7.3 g/dL (6.6-8.7); Triglycerides 582 mg/dL (0-150)
[2024-02-14 13:26] LABS: Creatinine Urine, Random 70 mg/dL (39-259); Microalbum Creatinine Ratio Ur 14 mg/dL (0-20); Microalbumin Random Urine 1 ug/dL (0-20)
[2024-02-14 13:39] LABS: LDL Cholesterol Direct 108 mg/dL (0-100)
== END 2024-02-14 12:22 | disposition home or self-care (01) ==
LOC: LAB 12:22
PROVIDERS: PCP Family Medicine; Visit Provider Internal Medicine
DX: E11.649 Type 2 diabetes mellitus with hypoglycemia without coma (principal); E78.2 Mixed hyperlipidemia; E11.9 Type 2 diabetes mellitus without complications
CPT/HCPCS: 36415; 80053; 80061; 82044; 83036; 83721

== ENCOUNTER → 2024-03-09 10:45 | Outpatient (BNVA) | payer MEDICARE, OTHER, SELFPAY | PROVIDERS: PCP Family Medicine; Visit Provider Podiatrist Foot & Ankle Surgery | DX: E11.42 Type 2 diabetes mellitus with diabetic polyneuropathy (principal); I73.9 Peripheral vascular disease, unspecified; B35.1 Tinea unguium; G62.9 Polyneuropathy, unspecified; L84 Corns and callosities; M20.11 Hallux valgus (acquired), right foot; M20.12 Hallux valgus (acquired), left foot; Z79.4 Long term (current) use of insulin | CPT/HCPCS: 11721; A6219 ==

== ENCOUNTER → 2024-03-26 14:56 | Outpatient (BNVA) | payer MEDICARE, OTHER, SELFPAY | PROVIDERS: PCP Family Medicine; Visit Provider Nurse Practitioner Family | DX: I42.2 Other hypertrophic cardiomyopathy (principal); Z95.0 Presence of cardiac pacemaker | CPT/HCPCS: 99214 ==

== ENCOUNTER 2024-03-26 19:05 | Emergency (ER) | payer MEDICARE, OTHER, SELFPAY ==
[2024-03-26 19:19] VITALS: BP 122/75; PULSE 88; RESP 18; TEMP 36.6; O2SAT 95
--- NOTE | 2024-03-26 21:05 | W.ED.MALEGU ---
HPI - Male Genitourinary General: Chief complaint: Urogenital-Male Stated complaint: [place] Time Seen by Provider: 03/26/24 20:53 Source: patient and family Mode of arrival: ambulatory Limitations: no limitations History of Present Illness: Patient is a nice 79-year-old male who presents to ED today along with his stating that he cannot urinate normally . When asked to explain, he states over the past several weeks he is having difficulty starting a urine stream and feels like he is not completely emptying his bladder. He has not had any urinary incontinence or urinary dribbling. He is not having any abdominal pain or pressure. No rectal pain or painful bowel movements. He has not noticed any cloudy or odorous urine. He is not having any penile or testicular pain. No fevers. No vomiting. No known issues with his prostate however states he cannot remember if he has ever had his prostate checked. He does have a few episodes of getting up in the middle of the night to go to the bathroom. States today he was only able to go a small amount. MD Complaint: other (urinary problems) Onset (ago): week(s) Duration: intermittent Severity: mild Relieving factors: none Exacerbating factors: none Associated symptoms: Reports no associated symptoms; Deny dysuria, hematuria, nausea, urinary incontinence or vomiting Related Data Home Medications Medication Instructions Recorded Confirmed aspirin 81 mg tablet,delayed 81 mg PO DAILY 05/20/22 03/26/24 release coenzyme Q10 75 mg capsule (Ultra 300 mg PO DAILY 05/20/22 03/26/24 CoQ10) hydrocortisone 1 % topical solution 1 applic topical BID PRN 05/20/22 03/26/24 mecobalamin (vitamin B12) 5,000 5,000 mcg PO DAILY 05/20/22 03/26/24 mcg disintegrating tablet Previous Rx's Medication Instructions Recorded custom heat molded inserts #1 ea 06/14/22 diabetic shoes #1 ea 06/14/22 insulin syringe-needle U-100 1 mL #500 ea 08/19/22 29 gauge x 1/2 (BD Insulin Syringe Safety-Rey) diabetic shoes with 3 custom #1 ea 08/23/22 inserts docusate sodium 100 mg capsule 100 mg PO BID #60 caps 03/16/23 blood-glucose sensor (FreeStyle #2 ea 11/18/23 Robert 3 Sensor device) disopyramide phosphate 150 mg See Rx Instructions .Route 01/10/24 capsule .COMPLEX #120 caps Novolin 70/30 U-100 Insulin 100 50 unit (0.5 mL) SUBCUT BID 3 01/11/24 unit/mL subcutaneous suspension months #90 mL (insulin NPH and regular human) atorvastatin 20 mg tablet See Rx Instructions .Route 03/06/24 .COMPLEX #90 tabs clopidogrel 75 mg tablet See Rx Instructions .Route 03/06/24 .COMPLEX #90 tabs fluoxetine 20 mg capsule 20 mg PO DAILY #90 caps 03/06/24 gabapentin 300 mg capsule See Rx Instructions .Route 03/06/24 .COMPLEX #180 caps metoprolol succinate 50 mg See Rx Instructions .Route 03/06/24 tablet,extended release 24 hr .COMPLEX #90 tabs pantoprazole 20 mg tablet,delayed See Rx Instructions .Route 03/06/24 release .COMPLEX #90 tabs topiramate 50 mg tablet 50 mg PO DAILY #90 tabs 03/06/24 tamsulosin 0.4 mg capsule (Flomax) 0.4 mg PO DAILY #15 caps 03/26/24 Allergies Allergy/AdvReac Type Severity Reaction Status Date / Time amoxicillin Allergy ALGY-Rash Verified 03/26/24 19:22 Penicillins Allergy rash Verified 03/26/24 19:22 Review of Systems Const: Denies: fever(s) Card: Denies: chest pain Resp: Denies: dyspnea GI: Denies: abdominal pain, nausea, vomiting or change in bowel habits : Reports: difficulty urinating, urinary hesitancy, difficulty starting urination and nocturia; Denies: flank pain, dysuria, urinary frequency, urinary dribbling, change in urine stream, urinary incontinence, hematuria, genital pain, genital lesions, penile discharge or testicular pain Musc: Denies: neck pain, back pain, extremity pain, extremity swelling, joint pain or joint swelling Skin/Breast: Denies: rash Neuro: Denies: headache(s), numbness in extremities, weakness in extremities or sensory changes PFSH ED PFSH: Medical History Diabetic neuropathy Diabetes mellitus type 2 with complications, uncontrolled Hyperlipidemia Depression, major, in partial remission GERD (gastroesophageal reflux disease) Hypertrophic cardiomyopathy ICD (implantable cardioverter-defibrillator) in place Pacemaker/ICD - Medtronic AAIR-> DDDR lower rate 60 bpm Pacemaker Surgical History History of sinus surgery Status post excision of lipoma right axilla Family History Father Diabetes Hypertension CAD (coronary artery disease) Mother Diabetes Stroke Grandfather Dementia Son Diabetes Family/Other Lung disease Denies family history of Clotting disorder Chronic kidney disease (CKD) Suicide Anesthesia complication Bleeding disorder Cancer Social History Smoking and tobacco/nicotine status: never used tobacco/nicotine Alcohol intake: never Substance/Drug Use: never Lives independently: Yes Household members: spouse service: No Current occupational status: retired Current occupation: [employer] Physical Exam Const: COMMON NORMALS: no acute distress, average body habitus, patient oriented x3, no limitations, healthy appearing, alert and well nourished GENERAL APPEARANCE: cooperative ORIENTATION/CONSCIOUSNESS: Yes awake, Yes oriented to person, Yes oriented to place and Yes oriented to time Resp: COMMON NORMALS: normal respiratory effort and clear to auscultation bilaterally AUSCULTATION: clear to auscultation bilaterally Cardio: COMMON NORMALS: regular rate and regular rhythm RATE: regular rate RHYTHM: regular rhythm GI: COMMON NORMALS: Normal to inspection, nondistended, normoactive bowel sounds present, Soft to palpation, non-tender, No hepatosplenomegaly present and no masses PALPATION: Yes Soft to palpation and Yes No hepatosplenomegaly present : COMMON NORMALS: Yes no CVA tenderness BLADDER/KIDNEY EXAM: Yes no CVA tenderness Back/Pelvis: COMMON NORMALS: no CVA tenderness and thoracic and lumbar spine normal to inspection Extremity: GENERAL: Yes normal exam except as noted Neuro: PASTOR COMA SCALE: document GCS findings Pastor coma scale eye opening: Spontaneous Freedom coma scale verbal response: Orientated Pastor coma scale motor response: Obey commands Pastor coma scale total score: 15 COMMON NORMALS: patient oriented x3, moves all extremities, no focal motor deficits, no sensory deficits noted and gait normal SENSORIUM/ORIENTATION: Yes alert, Yes oriented to person, Yes oriented to place and Yes oriented to time Skin: COMMON NORMALS: no rashes or lesions noted GENERAL SKIN EXAM: no rashes or lesions noted Course Vital Signs: Vital signs: Vital Signs Temperature 97.9 F 03/26/24 19:19 Pulse Rate 60 03/26/24 23:00 Respiratory Rate 16 03/26/24 23:00 Blood Pressure 154/79 03/26/24 23:00 Pulse Oximetry 98 03/26/24 23:00 Oxygen Delivery Me thod Room Air 03/26/24 23:00 MDM - Male Medical Decision Making Bladder scanner showing 396 mL. Patient attempted to urinate but only went a few small drops. Chand catheter placed for acute urinary retention. This most likely is secondary to prostate hypertrophy. He is not having any pain. Vital signs are stable. Blood work overall is unremarkable. UA not overly suspicious for infection. Will have patient follow-up with urology. Will place him on Flomax. Return to ED precautions given. Medical Records I reviewed the patient's medical records. Lab Data I reviewed the patient's lab results. 03/26/24 22:13 03/26/24 22:13 Laboratory Results WBC 9.05 10^3/uL (3.29-11.43) 03/26/24 22:13 RBC 5.21 10^6/uL (3.85-5.65) 03/26/24 22:13 Hgb 13.60 g/dL (11.27-16.99) 03/26/24 22:13 Hct 40.0 % (37-53) 03/26/24 22:13 MCV 76.8 fl (82-101) L 03/26/24 22:13 MCH 26.1 pg (27-33) L 03/26/24 22:13 MCHC 34.0 g/dL (30-55) 03/26/24 22:13 RDW 14.8 % (12.1-15.1) 03/26/24 22:13 Plt Count 251 10^3/cmm (157-399) 03/26/24 22:13 MPV 10.0 fL (7.4-10.4) 03/26/24 22:13 Neut % (Auto) 54.1 % 03/26/24 22:13 Lymph % (Auto) 26.0 % 03/26/24 22:13 [place] % (Auto) 10.5 % 03/26/24 22:13 Eos % (Auto) 7.0 % 03/26/24 22:13 Baso % (Auto) 2.1 % 03/26/24 22:13 Neut # (Auto) 4.90 10^3/uL (1.8-7.7) 03/26/24 22:13 Lymph # (Auto) 2.4 10^3/uL (0.8-4.8) 03/26/24 22:13 [place] # (Auto) 1.0 10^3/uL (0.2-0.9) H 03/26/24 22:13 Eos # (Auto) 0.6 10^3/uL (0.0-0.8) 03/26/24 22:13 Baso # (Auto) 0.2 10^3/uL (0.0-0.1) H 03/26/24 22:13 Nucleated RBC % (auto) 0 % 03/26/24 22:13 Nucleated RBCs # 0.0 /100WBC 03/26/24 22:13 Sodium 136 mmol/L (136-145) 03/26/24 22:13 Potassium 3.6 mmol/L (3.5-5.1) 03/26/24 22:13 Chloride 102 mmol/L (98-107) 03/26/24 22:13 Carbon Dioxide 22 mmol/L (22-29) 03/26/24 22:13 Anion Gap 15.6 (5-19) 03/26/24 22:13 BUN 15 mg/dL (8-23) 03/26/24 22:13 Creatinine 1.2 mg/dL (0.7-1.2) 03/26/24 22:13 GFR Calculation Not Reportable 03/26/24 22:13 Glucose 98 mg/dL (65-115) 03/26/24 22:13 Calculated Osmolality 283 mOsm/kg (285-295) L 03/26/24 22:13 Calcium 8.8 mg/dL (8.5-10.5) 03/26/24 22:13 Total Bilirubin 0.3 mg/dL (0.15-1.2) 03/26/24 22:13 AST 16 U/L (0-40) 03/26/24 22:13 ALT 10 U/L (0-41) 03/26/24 22:13 Alkaline Phosphatase 97 U/L (40-130) 03/26/24 22:13 Total Protein 7.0 g/dL (6.6-8.7) 03/26/24 22:13 Albumin 3.7 g/dL (3.5-5.2) 03/26/24 22:13 Globulin 3.3 g/dL (1.3-4.6) 03/26/24 22:13 Urine Color Yellow (Yellow) 03/26/24 21:16 Urine Appearance Clear (CLEAR) 03/26/24 21:16 Urine pH 6.5 (5-7) 03/26/24 21:16 Ur Specific [place] 1.023 (1.005-1.030) 03/26/24 21:16 Urine Protein Negative (Negative) 03/26/24 21:16 Urine Glucose (UA) 3+ (Normal) H 03/26/24 21:16 Urine Ketones Negative (Negative) 03/26/24 21:16 Urine Blood Negative (Negative) 03/26/24 21:16 Urine Nitrate Negative (Negative) 03/26/24 21:16 Urine Bilirubin Negative (Negative) 03/26/24 21:16 Urine Urobilinogen 1.0 mg/dL (Negative) 03/26/24 21:16 Ur Leukocyte Esterase 1+ (Negative) A 03/26/24 21:16 Urine RBC 0-2 /hpf (0-2) 03/26/24 21:16 Urine WBC 6-10 /hpf (0-5) 03/26/24 21:16 Ur Squamous Epith Cells 0-5 /hpf (0-5) 03/26/24 21:16 Amorphous Sediment Not Reportable 03/26/24 21:16 Urine Bacteria None seen /hpf (NONE) 03/26/24 21:16 Hyaline Casts 0.81 /lpf 03/26/24 21:16 No radiology studies performed this visit Discharge Plan Discharge Patient Disposition: Home Clinical Impression: Acute urinary retention Condition: Stable Prescriptions: New Flomax 0.4 mg capsule 0.4 mg PO DAILY Qty: 15 0RF No Action aspirin 81 mg tablet,delayed release (DR/EC) 81 mg PO DAILY Ultra CoQ10 75 mg capsule 300 mg PO DAILY mecobalamin (vitamin B12) 5,000 mcg tablet,disintegrating 5,000 mcg PO DAILY hydrocortisone 1 % solution 1 applic topical BID PRN (DME) diabetic shoes See Rx Instructions .Route .MEDSUPPLY Qty: 1 0RF Rx Instructions: As directed (DME) custom heat molded inserts See Rx Instructions .Route .MEDSUPPLY Qty: 1 0RF Rx Instructions: [place] [place] with 3 custom inserts See Rx Instructions .Route .MEDSUPPLY Qty: 1 0RF Rx Instructions: As directed docusate sodium 100 mg capsule 100 mg PO BID Qty: 60 0RF (DME) FreeStyle Robert 3 Sensor Device See Rx Instructions .Route Qty: 2 5RF Rx Instructions: As directed atorvastatin 20 mg tablet See Rx Instructions .ROUTE .COMPLEX Qty: 90 0RF Dose Instruction: Take 1 tablet by mouth once daily Rx Instructions: Take 1 tablet by mouth once daily clopidogrel 75 mg tablet See Rx Instructions .ROUTE .COMPLEX Qty: 90 0RF Dose Instruction: Take 1 tablet by mouth once daily Rx Instructions: Take 1 tablet by mouth once daily fluoxetine 20 mg capsule 20 mg PO DAILY Qty: 90 1RF gabapentin 300 mg capsule See Rx Instructions .ROUTE .COMPLEX Qty: 180 0RF Dose Instruction: Take 1 capsule by mouth twice daily Rx Instructions: Take 1 capsule by mouth twice daily metoprolol succinate 50 mg tablet extended release 24 hr See Rx Instructions .ROUTE .COMPLEX Qty: 90 0RF Dose Instruction: Take 1 tablet by mouth once daily Rx Instructions: Take 1 tablet by mouth once daily pantoprazole 20 mg tablet,delayed release (DR/EC) See Rx Instructions .ROUTE .COMPLEX Qty: 90 0RF Dose Instruction: Take 1 tablet by mouth once daily Rx Instructions: Take 1 tablet by mouth once daily topiramate 50 mg tablet 50 mg PO DAILY Qty: 90 0RF (DME) insulin syringe-needle U-100 [BD Insulin Syringe Safety-Rey] 1 mL 29 gauge x 1/2 syringe See Rx Instructions .Route Qty: 500 0RF Rx Instructions: Inject insulin, Twice, daily. disopyramide phosphate 150 mg capsule See Rx Instructions .ROUTE .COMPLEX Qty: 120 3RF Dose Instruction: TAKE 1 CAPSULE BY MOUTH TWICE DAILY SPACE DOSES OUT EVENLY DURING WAKING HOURS Rx Instructions: TAKE 1 CAPSULE BY MOUTH TWICE DAILY SPACE DOSES OUT EVENLY DURING WAKING HOURS Novolin 70/30 U-100 Insulin 100 unit/mL (70-30) suspension 50 unit SUBCUT BID 90 Days Qty: 90 1RF Discharge Orders: Discharge ED (Routine); Ordered 03/26/24 Ordered By: Tia Aguilar Referrals: Tisha Funk MD [Primary Care Provider] - Patient Instructions: Urinary Retention in Men (ED) Activity Restrictions/Additional Instructions: As we discussed, I will have case management set him up with urology for further evaluation of his acute urinary retention. His Chand needs to stay in until his appointment. You need to return the emergency department for severe abdominal pain, Chand not draining appropriately, blood clots in the tubing of his Chand catheter, fevers, severe penile pain or swelling, or any other concerns he may have. Coding Level of Care Code ED Appliance Sales Associate for Harriet Nicolas
[2024-03-26 21:30] VITALS: BP 133/71; PULSE 60; RESP 16; O2SAT 97
[2024-03-26 21:30] LABS: Bilirubin Urine Negative (Negative); Blood Urine Negative (Negative); Glucose Urine UA 3+ (Normal); Ketones Urine Negative (Negative); Leukocyte Esterase Urine 1+ (Negative); Nitrate Urine Negative (Negative); Protein Urine Negative (Negative); Specific Gravity, Urine 1.023 (1.005-1.030); Urine Appearance Clear (CLEAR); Urine Color Yellow (Yellow); pH Urine 6.5 (5-7)
[2024-03-26 21:35] LABS: Add Urine Microscopic? YES; Bacteria Urine None Seen /hpf; Hyaline Casts Urine 0.81 /lpf; RBC Urine 0-2 /hpf (0-2); Squamous Epithelial Cell Urine 0-5 /hpf (0-5)
[2024-03-26 22:37] LABS: Basophils # 0.2 10^3/uL (0.0-0.1); Basophils % 2.1 %; Eosinophils # 0.6 10^3/uL (0.0-0.8); Lymphocytes # 2.4 10^3/uL (0.8-4.8); Mean Corpuscular Hemoglobin 26.1 pg (27-33); Mean Corpuscular Volume 76.8 fl (82-101); Monocytes % 10.5 %; Neutrophils % 54.1 %; Nucleated Red Blood Cells % 0 %; Platelet Count 251 10^3/cmm (157-399); Red Blood Count 5.21 10^6/uL (3.85-5.65); Red Cell Distribution Width 14.8 % (12.1-15.1); White Blood Count 9.05 10^3/uL (3.29-11.43)
[2024-03-26 22:56] LABS: Alanine Aminotransferase 10 U/L (0-41); Albumin Level 3.7 g/dL (3.5-5.2); Alkaline Phosphatase 97 U/L (40-130); Anion Gap 15.6 (5-19); Aspartate Amino Transferase 16 U/L (0-40); Blood Urea Nitrogen 15 mg/dL (8-23); Calcium 8.8 mg/dL (8.5-10.5); Carbon Dioxide 22 mmol/L (22-29); Chloride 102 mmol/L (98-107); Creatinine Clr Calc Pharmacy 50.6496; Globulin 3.3 g/dL (1.3-4.6); Glucose 98 mg/dL (65-115); Osmolality Calculated 283 mOsm/kg (285-295); Potassium 3.6 mmol/L (3.5-5.1); Sodium 136 mmol/L (136-145); Total Bilirubin 0.3 mg/dL (0.15-1.2)
[2024-03-26 23:00] VITALS: BP 154/79; PULSE 60; RESP 16; O2SAT 98
[2024-03-27 00:07] VITALS: BP 139/72; PULSE 60; RESP 16; O2SAT 98
--- NOTE | 2024-03-27 07:55 | DCPLANNER ---
faxed referral packet to [facility]
== END 2024-03-27 00:08 | disposition home or self-care (01) ==
PROVIDERS: Emergency Medicine; Emergency Provider Physician Assistant; PCP Family Medicine
DX: R33.9 Retention of urine, unspecified (principal); Z79.82 Long term (current) use of aspirin; Z79.02 Long term (current) use of antithrombotics/antiplatelets; Z79.4 Long term (current) use of insulin; E11.40 Type 2 diabetes mellitus with diabetic neuropathy, unspecified; E78.5 Hyperlipidemia, unspecified; Z95.0 Presence of cardiac pacemaker
CPT/HCPCS: 51702; 51798; 80053; 81001; 85025; 99283

== ENCOUNTER 2024-04-08 13:59 | Emergency (ER) | payer MEDICARE, OTHER, SELFPAY ==
[2024-04-08 14:09] VITALS: BP 132/77; PULSE 87; RESP 18; TEMP 36.3; O2SAT 98; BMI 25.8
--- NOTE | 2024-04-08 14:31 | ED_ITS ---
HPI - Male Genitourinary General: Chief complaint: Urogenital-Male Stated complaint: catheter pain and pressure Time Seen by Provider: 04/08/24 14:28 History of Present Illness: 79-year-old male patient comes in today with complaints of pain and pressure in Chand catheter. Spouse states that has not been draining like it was starting yesterday afternoon. Nursing did a bladder scan noted 322 mL in the bladder. Patient also has noted some drainage around the tubing from the meatus of the penis. Patient reports no fever or chills. Related Data Home Medications Medication Instructions Recorded Confirmed aspirin 81 mg tablet,delayed 81 mg PO DAILY 05/20/22 03/26/24 release coenzyme Q10 75 mg capsule (Ultra 300 mg PO DAILY 05/20/22 03/26/24 CoQ10) hydrocortisone 1 % topical solution 1 applic topical BID PRN 05/20/22 03/26/24 mecobalamin (vitamin B12) 5,000 5,000 mcg PO DAILY 05/20/22 03/26/24 mcg disintegrating tablet Previous Rx's Medication Instructions Recorded custom heat molded inserts #1 ea 06/14/22 diabetic shoes #1 ea 06/14/22 insulin syringe-needle U-100 1 mL #500 ea 08/19/22 29 gauge x 1/2 (BD Insulin Syringe Safety-Rey) diabetic shoes with 3 custom #1 ea 08/23/22 inserts docusate sodium 100 mg capsule 100 mg PO BID #60 caps 03/16/23 blood-glucose sensor (FreeStyle #2 ea 11/18/23 Robert 3 Sensor device) disopyramide phosphate 150 mg See Rx Instructions .Route 01/10/24 capsule .COMPLEX #120 caps Novolin 70/30 U-100 Insulin 100 50 unit (0.5 mL) SUBCUT BID 3 01/11/24 unit/mL subcutaneous suspension months #90 mL (insulin NPH and regular human) atorvastatin 20 mg tablet See Rx Instructions .Route 03/06/24 .COMPLEX #90 tabs clopidogrel 75 mg tablet See Rx Instructions .Route 03/06/24 .COMPLEX #90 tabs fluoxetine 20 mg capsule 20 mg PO DAILY #90 caps 03/06/24 gabapentin 300 mg capsule See Rx Instructions .Route 03/06/24 .COMPLEX #180 caps metoprolol succinate 50 mg See Rx Instructions .Route 03/06/24 tablet,extended release 24 hr .COMPLEX #90 tabs pantoprazole 20 mg tablet,delayed See Rx Instructions .Route 03/06/24 release .COMPLEX #90 tabs topiramate 50 mg tablet 50 mg PO DAILY #90 tabs 03/06/24 tamsulosin 0.4 mg capsule (Flomax) 0.4 mg PO DAILY #15 caps 03/26/24 nitrofurantoin 100 mg PO BID 7 days #14 caps 04/08/24 monohydrate/macrocrystals 100 mg capsule Allergies Allergy/AdvReac Type Severity Reaction Status Date / Time amoxicillin Allergy ALGY-Rash Verified 04/08/24 14:11 Penicillins Allergy rash Verified 04/08/24 14:11 Review of Systems General: Reports: 10 or more systems reviewed and unremarkable except in HPI and below PFSH ED PFSH: Medical History Diabetic neuropathy Diabetes mellitus type 2 with complications, uncontrolled Hyperlipidemia Depression, major, in partial remission GERD (gastroesophageal reflux disease) Hypertrophic cardiomyopathy ICD (implantable cardioverter-defibrillator) in place Pacemaker/ICD - Medtronic AAIR-> DDDR lower rate 60 bpm Pacemaker Surgical History History of sinus surgery Status post excision of lipoma right axilla Family History Father Diabetes Hypertension CAD (coronary artery disease) Mother Diabetes Stroke Grandfather Dementia Son Diabetes Family/Other Lung disease Denies family history of Clotting disorder Chronic kidney disease (CKD) Suicide Anesthesia complication Bleeding disorder Cancer Social History Smoking and tobacco/nicotine status: never used tobacco/nicotine Alcohol intake: never Substance/Drug Use: never Lives independently: Yes Household members: spouse service: No Current occupational status: retired Current occupation: sales - electrical [employer] Physical Exam Const: COMMON NORMALS: alert HENMT: COMMON NORMALS: normocephalic HEAD & SCALP: normocephalic Neck/C-Spine: COMMON NORMALS: full ROM Resp: COMMON NORMALS: normal respiratory effort and clear to auscultation bilaterally AUSCULTATION: clear to auscultation bilaterally Cardio: COMMON NORMALS: regular rate RATE: regular rate : COMMON NORMALS: Yes no CVA tenderness BLADDER/KIDNEY EXAM: Yes no CVA tenderness Back/Pelvis: COMMON NORMALS: no CVA tenderness Extremity: COMMON NORMALS: normal to inspection Neuro: SENSORIUM/ORIENTATION: Yes alert Skin: COMMON NORMALS: turgor normal GENERAL SKIN EXAM: turgor normal Course Vital Signs: Vital signs: Vital Signs Temperature 97.3 F L 04/08/24 14:09 Pulse Rate 87 04/08/24 14:09 Respiratory Rate 18 04/08/24 14:09 Blood Pressure 132/77 04/08/24 14:09 Pulse Oximetry 98 04/08/24 14:09 Oxygen Delivery Me thod Room Air 04/08/24 14:09 MDM - Male Medical Decision Making 79-year-old male patient comes in today for complaints of lower abdominal pain and Chand catheter discomfort. Patient had the Chand catheter placed a little over 1 week ago for urinary retention. Patient stated yesterday he noticed some increased pain and has noticed some drainage around the Chand catheter from the meatus. Spouse is also noticed that it had decreased the amount draining from the catheter since that time. Differential diagnosis includes obstruction of Chand catheter, displacement of Chand catheter, urinary tract infection, acute urinary retention. Urinalysis had large amount of white blood cells and red blood cells in it. Patient was given a dose of levofloxacin for urinary tract infection. Bladder scan noted some 300 mL of urine in the bladder. Chand catheter was irrigated until urine was draining clear. Patient was discharged home with recommendations to continue Macrobid 100 mg twice a day for 7 days. Recommend continue care of Chand catheter and follow-up with urology or primary care. Lab Data Laboratory Results Urine Color Yellow (Yellow) 04/08/24 14:49 Urine Appearance Turbid (CLEAR) A 04/08/24 14:49 Urine pH 5.5 (5-7) 04/08/24 14:49 Ur Specific Wylie 1.035 (1.005-1.030) H 04/08/24 14:49 Urine Protein 1+ (Negative) A 04/08/24 14:49 Urine Glucose (UA) 3+ (Normal) H 04/08/24 14:49 Urine Ketones Trace (Negative) 04/08/24 14:49 Urine Blood 3+ (Negative) A 04/08/24 14:49 Urine Nitrate Negative (Negative) 04/08/24 14:49 Urine Bilirubin Negative (Negative) 04/08/24 14:49 Urine Urobilinogen 0.2 mg/dL (Negative) 04/08/24 14:49 Ur Leukocyte Esterase 2+ (Negative) A 04/08/24 14:49 Urine RBC >100 /hpf (0-2) H 04/08/24 14:49 Urine WBC >100 /hpf (0-5) H 04/08/24 14:49 Ur Squamous Epith Cells 6-10 /hpf (0-5) 04/08/24 14:49 Amorphous Sediment 1+ /hpf 04/08/24 14:49 Urine Bacteria Exceeds /hpf (NONE) 04/08/24 14:49 Hyaline Casts 3.30 /lpf 04/08/24 14:49 Coarse Granular Casts 0-4 /lpf H 04/08/24 14:49 Urine Mucus 1+ /hpf 04/08/24 14:49 Urine Yeast 1+ /hpf H 04/08/24 14:49 No radiology studies performed this visit Discharge Plan Discharge Patient Disposition: Home Clinical Impression: UTI (urinary tract infection) due to urinary indwelling Chand catheter Qualifiers: Indwelling urinary catheter type: indwelling urethral catheter Encounter type: initial encounter Qualified Code(s): T83.511A - Infection and inflammatory reaction due to indwelling urethral catheter, initial encounter Condition: Stable Prescriptions: New nitrofurantoin monohyd/m-cryst 100 mg capsule 100 mg PO BID 7 Days Qty: 14 0RF Rx Instructions: must administer with a meal/food No Action aspirin 81 mg tablet,delayed release (DR/EC) 81 mg PO DAILY Ultra CoQ10 75 mg capsule 300 mg PO DAILY mecobalamin (vitamin B12) 5,000 mcg tablet,disintegrating 5,000 mcg PO DAILY hydrocortisone 1 % solution 1 applic topical BID PRN (DME) diabetic shoes See Rx Instructions .Route .MEDSUPPLY Qty: 1 0RF Rx Instructions: As directed (DME) custom heat molded inserts See Rx Instructions .Route .MEDSUPPLY Qty: 1 0RF Rx Instructions: As directed (DME) diabetic shoes with 3 custom inserts See Rx Instructions .Route .MEDSUPPLY Qty: 1 0RF Rx Instructions: As directed docusate sodium 100 mg capsule 100 mg PO BID Qty: 60 0RF (DME) FreeStyle Robert 3 Sensor Device See Rx Instructions .Route Qty: 2 5RF Rx Instructions: As directed atorvastatin 20 mg tablet See Rx Instructions .ROUTE .COMPLEX Qty: 90 0RF Dose Instruction: Take 1 tablet by mouth once daily Rx Instructions: Take 1 tablet by mouth once daily clopidogrel 75 mg tablet See Rx Instructions .ROUTE .COMPLEX Qty: 90 0RF Dose Instruction: Take 1 tablet by mouth once daily Rx Instructions: Take 1 tablet by mouth once daily fluoxetine 20 mg capsule 20 mg PO DAILY Qty: 90 1RF gabapentin 300 mg capsule See Rx Instructions .ROUTE .COMPLEX Qty: 180 0RF Dose Instruction: Take 1 capsule by mouth twice daily Rx Instructions: Take 1 capsule by mouth twice daily metoprolol succinate 50 mg tablet extended release 24 hr See Rx Instructions .ROUTE .COMPLEX Qty: 90 0RF Dose Instruction: Take 1 tablet by mouth once daily Rx Instructions: Take 1 tablet by mouth once daily pantoprazole 20 mg tablet,delayed release (DR/EC) See Rx Instructions .ROUTE .COMPLEX Qty: 90 0RF Dose Instruction: Take 1 tablet by mouth once daily Rx Instructions: Take 1 tablet by mouth once daily topiramate 50 mg tablet 50 mg PO DAILY Qty: 90 0RF (DME) insulin syringe-needle U-100 [BD Insulin Syringe Safety-Rey] 1 mL 29 gauge x 1/2 syringe See Rx Instructions .Route Qty: 500 0RF Rx Instructions: Inject insulin, Twice, daily. disopyramide phosphate 150 mg capsule See Rx Instructions .ROUTE .COMPLEX Qty: 120 3RF Dose Instruction: TAKE 1 CAPSULE BY MOUTH TWICE DAILY SPACE DOSES OUT EVENLY DURING WAKING HOURS Rx Instructions: TAKE 1 CAPSULE BY MOUTH TWICE DAILY SPACE DOSES OUT EVENLY DURING WAKING HOURS Novolin 70/30 U-100 Insulin 100 unit/mL (70-30) suspension 50 unit SUBCUT BID 90 Days Qty: 90 1RF Flomax 0.4 mg capsule 0.4 mg PO DAILY Qty: 15 0RF Discharge Orders: Discharge ED (Routine); Ordered 04/08/24 Ordered By: Mustapha Betancourt Referrals: Tisha Funk MD [Primary Care Provider] - Discharge Diet: Usual diet Discharge Activity: Increase activity as tolerated Patient Instructions: Chand Catheter Placement and Care (ED), Urinary Tract Infection in Older Adults (ED) Activity Restrictions/Additional Instructions: Drink plenty of water. Take antibiotics as directed. Follow-up with primary care 3 to 5 days for recheck. Return to ED for new concerns. Coding Level of Care Code ED Lead Front Desk Agent for Harriet Nicolas
[2024-04-08 15:07] LABS: Bilirubin Urine Negative (Negative); Blood Urine 3+ (Negative); Glucose Urine UA 3+ (Normal); Ketones Urine Trace (Negative); Leukocyte Esterase Urine 2+ (Negative); Nitrate Urine Negative (Negative); Protein Urine 1+ (Negative); Urine Appearance Turbid (CLEAR); Urobilinogen Urine 0.2 mg/dL (Negative); pH Urine 5.5 (5-7)
[2024-04-08 15:12] LABS: Add Urine Microscopic? YES; Bacteria Urine EXCEEDS /hpf; RBC Urine >100 /hpf (0-2); WBC Urine >100 /hpf (0-5)
[2024-04-08 15:21] LABS: Mucus Urine 1+ /hpf; Specific Gravity, Urine 1.035 (1.005-1.030); UA Slide Review UA Slide Review Perf; Urine Color Yellow (Yellow)
[2024-04-08 15:22] LABS: Add Urine Culture? Yes; Amorphous Sediment Urine 1+ /hpf; Coarse Granular Casts Urine 0-4 /lpf
[2024-04-08] MEDS: levoFLOXacin 500 mg Tablet PO (16:18)
[2024-04-08] MEDS: HYDROcodone-acetaminophen 5-325 mg Tablet 1 TAB PO (16:50)
[2024-04-08 17:13] VITALS: BP 129/79; PULSE 81; RESP 16; O2SAT 97
--- NOTE | 2024-04-08 17:14 | PC.NURSE ---
this nurse irrigated pts catheter with 500 mL sterile water. this nurse got 650 mL on return.
== END 2024-04-08 16:54 | disposition home or self-care (01) ==
PROVIDERS: Emergency Provider Nurse Practitioner Family; PCP Family Medicine
DX: T83.511A Infection and inflammatory reaction due to indwelling urethral catheter, initial encounter (principal); Z79.82 Long term (current) use of aspirin; Z79.02 Long term (current) use of antithrombotics/antiplatelets; Z79.4 Long term (current) use of insulin
CPT/HCPCS: 51798; 81001; 87077; 87086; 87186; 99283

== ENCOUNTER 2024-08-10 12:17 | Outpatient (CLI) | payer MEDICARE, OTHER, SELFPAY | END 2024-08-10 12:18 | disposition home or self-care (01) | PROVIDERS: PCP Family Medicine; Visit Provider Internal Medicine | DX: E11.649 Type 2 diabetes mellitus with hypoglycemia without coma (principal); E11.43 Type 2 diabetes mellitus with diabetic autonomic (poly)neuropathy | CPT/HCPCS: 36415; 80053; 80061; 82044; 83036; 83721 ==

== ENCOUNTER → 2024-08-27 13:08 | Outpatient (BNVA) | payer MEDICARE, OTHER, SELFPAY | PROVIDERS: PCP Family Medicine; Visit Provider Internal Medicine | DX: E11.649 Type 2 diabetes mellitus with hypoglycemia without coma (principal); E78.2 Mixed hyperlipidemia | CPT/HCPCS: 36415; 80053; 84681; 86337; 86341; 99214 ==

== ENCOUNTER → 2024-10-15 11:38 | Outpatient (BNVA) | payer MEDICARE, OTHER, SELFPAY | PROVIDERS: PCP Family Medicine; Visit Provider Internal Medicine | DX: E11.43 Type 2 diabetes mellitus with diabetic autonomic (poly)neuropathy (principal); E78.2 Mixed hyperlipidemia; E11.649 Type 2 diabetes mellitus with hypoglycemia without coma | CPT/HCPCS: 99214 ==

== ENCOUNTER → 2024-11-08 14:49 | Outpatient (BNVA) | payer MEDICARE, OTHER, SELFPAY | PROVIDERS: PCP Family Medicine; Visit Provider Podiatrist Foot & Ankle Surgery | DX: E11.42 Type 2 diabetes mellitus with diabetic polyneuropathy (principal); B35.1 Tinea unguium; G62.9 Polyneuropathy, unspecified; I73.9 Peripheral vascular disease, unspecified; L84 Corns and callosities; Z79.4 Long term (current) use of insulin; M20.12 Hallux valgus (acquired), left foot; M20.11 Hallux valgus (acquired), right foot | CPT/HCPCS: 11721; 99213 ==

== ENCOUNTER → 2025-03-25 10:36 | Outpatient (BNVA) | payer MEDICARE, OTHER, SELFPAY | PROVIDERS: PCP Family Medicine; Visit Provider Internal Medicine Cardiovascular Disease | DX: I42.2 Other hypertrophic cardiomyopathy (principal); E78.2 Mixed hyperlipidemia; E11.65 Type 2 diabetes mellitus with hyperglycemia; Z79.4 Long term (current) use of insulin; Z95.810 Presence of automatic (implantable) cardiac defibrillator; R06.02 Shortness of breath; R06.09 Other forms of dyspnea; N18.9 Chronic kidney disease, unspecified; R53.83 Other fatigue; R07.9 Chest pain, unspecified | CPT/HCPCS: 36415; 80048; 83880; 84443; 93005; 99214 ==

== ENCOUNTER → 2025-04-04 15:28 | Outpatient (BNVA) | payer MEDICARE, OTHER, SELFPAY | PROVIDERS: PCP Family Medicine; Visit Provider Podiatrist Foot & Ankle Surgery | DX: E11.8 Type 2 diabetes mellitus with unspecified complications (principal); B35.1 Tinea unguium; L84 Corns and callosities; G62.9 Polyneuropathy, unspecified; I73.9 Peripheral vascular disease, unspecified; M20.10 Hallux valgus (acquired), unspecified foot; E11.42 Type 2 diabetes mellitus with diabetic polyneuropathy; M20.11 Hallux valgus (acquired), right foot; M20.12 Hallux valgus (acquired), left foot; Z79.4 Long term (current) use of insulin | CPT/HCPCS: 11721 ==

== ENCOUNTER 2025-04-07 00:04 | Inpatient (IN) | payer MEDICARE, OTHER, SELFPAY ==
--- OUTSIDE RECORDS SUMMARY | 2025-01-14 12:00 | XMS_ITS ---
Author Organization [facility] Address [address] [place] [address] Care Team Providers Care Insurance Risk Analyst Name Role Phone Tisha Funk Primary Care Provider RAHEEL Yanes Unavailable [phone] REASON FOR VISIT 4 wk cysto/beltrán chg Encounters Encounter Location Date Provider Diagnosis [facility] [address] [place] [address] 01/14/2025 RAHEEL DEUTSCH Phimosis of penis N4 [...] 0 08/14/2025 11:00:00 AM, [address] [facility] [place], [address], Progress Notes * Chapito MURILLO EDOB:1944 (80 yo M)Acc No.[id number]:01/14/2025 Patient: Chapito DE Provider: Justin DEUTSCH MD :1945 A ge:80 Y S ex:Male Date:01/14/2025 Address:[address] [place], [place] [id number] Pcp:Tisha Funk Subjective: * Chief Complaints: * 1 . 4 wk cysto/beltrán chg. * HPI: M igrated HPI: Mr. Murillo is an 79 year old male patient referred by [facility] ER for acute urinary retention. He is [...] seeing a urologist many years ago in [place], but unsure why. No history of smoking. He was given Rx for Flomax at ER, but has not been able to moss picker and start Rx yet. Instructed patient to moss picker Rx for Flomax, he was also [...] ystoscopy and 4 week SP tube change. * Medical History: Objective: * Vitals: Assessment: * Assessment: 1. P reoperative examination [...] 9 . C loudy urine - R82.90 Plan: * Treatment: * Billing Information: * Visit Code: * Procedure Codes: * Electronic signature of AUST IN MD GET on 04/07/2025 at 12:13 AM CDT Sign off status: Pending * Provider: Justin DEUTSCH MD Date: 0 01/14/2025 Generated for Terrie reyna/Rafa/Liliamitting on: 1 12:13 AM CDT
--- OUTSIDE RECORDS SUMMARY | 2025-01-23 05:30 | XMS_ITS ---
Author Organization [facility] Address [address] [place] [address] Care Team Providers Care Child Care Associate Name Role Phone Tisha Funk Primary Care Provider Unavailab RAHEEL Davidson Unavailable [phone] ADRIANA GUSMAN Unavailable [phone] REASON FOR VISIT beltrán change Encounters Encounter Location Date Provider Diagnosis [facility] [address] [place] [facility] [place] [address] 01/23/2025 ADRIANA GUSMAN Plan Of Treatment Next Appt Details Provider Name:ADRIANA Ant GUSMAN, 0 08/14/2025 11:00:00 AM, [address] [place], [address], Progress Notes * Chapito MURILLO EDOB:1944 (80 yo M)Acc No.[id number]:01/23/2025 Progress Note Patient: Chapito DE Provider: CARLTON Nation :1945 A ge:80 Y S ex:Male Date:01/23/2025 Address:[address] [facility] Pcp:Tisha Funk Subjective: * Chief Complaints: * 1 . Beltrán change. * Medical History: Objective: * Vitals: Assessment: Plan: * Treatment: * Billing Information: * Visit Code: * Procedure Codes: * Electronic signature of ADRIANA GUSMAN APRN on 04/07/2025 at 12:13 AM CDT Sign off status: Pending * Provider: Justin Gusman APRN-ELECTRICIAN FRONT Date: 0 01/23/2025 Generated for Terrie reyna/Rafa/Conner on: 1 12:13 AM CDT
--- OUTSIDE RECORDS SUMMARY | 2025-03-18 05:45 | XMS_ITS ---
Author Organization [facility] Address [address] [place] [address] Care Team Providers Care Director Of Child Welfare Services Name Role Phone Tisha Funk Primary Care Provider Alexsandra Thomas Unavailable [phone] REASON FOR VISIT [id number] 3 mo f/u - UTI Encounters Encounter Location Date Provider Diagnosis [facility] [address] [place] [address], [place] [address] 03/18/2025 Alexsandra Marks Plan Of Treatment No Information Progress Notes * LIDIABIENVENIDO LANZA EDOB:1944 (80 yo M)Acc No.[id number]:03/18/2025 Progress Notes Patient: BIENVENIDO DE Provider: Tamra Marks APRN :1945 A ge:80 Y S ex:Male Date:03/18/2025 Address:[address] [facility] Pcp:Tisha Funk Subjective: * Chief Complaints: * 6 [id number] 3 mo f/u - UTI Care Plan Details* * Electronic signature of Atul Marks APRN on 04/07/2025 at 12:13 AM CDT Sign off status: Pending * Provider: Tamra Marks APRN Date: 0 03/18/2025 Generated for Printi ng/Faxing/eTransmitting on: 1 12:13 AM CDT
[2025-04-07] VITALS (11 sets, daily range): BP systolic 110–176; BP diastolic 58–88; PULSE 60–71; RESP 14–18; TEMP 36.3–36.7; O2SAT 93–97; BMI 26.0; BMI 26.4
--- OUTSIDE RECORDS SUMMARY | 2025-04-07 00:13 | XMS_ITS | Patient Health Record ---
Author Organization [facility], [facility] Address [address] [place] [address] Care Team Providers Care Frit Maker Name Role Phone Tisha Funk Primary Care Provider Unavailab RAHEEL Davidson Unavailable [phone] VAL PATEL Unavailable [phone] ELLE GUSMAN Unavailable [phone] Allergies Allergen (clinical drug ingredient) Drug/Non Drug Allergy documented on EMR Reaction Allergy Type Onset Date Status amoxicillin Amoxicillin Unknown Drug Allergy Act mayank Substance with penicillin structure and antibacterial mechanism of action (substance) Penicillins Unknown Drug Allergy Active Results Component Value Reference Range Notes UTI Resistance Panel PCR Reviewed date:07/09/2024 04:04:45 PM Interpretation: Performing Lab: Notes/Report: CLIENT EDUCATION TRACKING Reviewed date:05/28/2024 08:13:22 AM Interpretation: Performing Lab:[id number] Shital [facility] [id number] Michael Rodarte MD Notes/Report: FASTING: NO CLIENT EDUCATION TRACKING The Requisition we received did not include a [employer] account number. To prevent delays in testing and processing of your orders please provide the following information with every order submitted: [facility] account number and account name Client address Client phone and fax number NPI number of ordering physician along with the physician name. Urinalysis, Routine Reviewed date:07/05/2024 03:49:39 PM Interpretation: Performing Lab: Notes/Report: Urine-Color Light yellow Appearance slightly cloudy Glucose 3+ Bilirubin - Ketones - Specific [place] 1.015 Occult Blood 2+ pH 6.0 Urine Protein 1+ Urobilinogen,Semi-Qn 0.2 Nitrite, Urine - WBC Esterase 1+ UTI Pathogen Panel PCR Reviewed date:07/09/2024 04:02:19 PM Interpretation: Performing Lab: Notes/Report: Basic Metabolic Panel Reviewed date:05/24/2024 09:27:32 AM Interpretation: Performing Lab: Notes/Report: Use of this assay is not recommended for patients undergoing treatment with phenindione, due to the potential for falsely depressed results. Testing performed at: [address] [place] [address] CLIA ID [id number] Calculation performed from GFR calculator provided by the National Kid[employer] Foundation. Glomerular Filtration rate(GRF) is the best overall index of kidney function. Normal GFR varies according to age,sex, body size, and declines with age. The National Kidney Foundation recommends using the CKD-EPI Creatinine Equation(2020) to estimate GFR. T-imhunv-l-benzoquinone imine (NAPQI) is a metabolite of acetaminophen, NAPQI concentrations of apparoximately 10 mg/L correlation to toxic levels of acetaminophen demonstrates a greater than or equil to 10% change in results. NAPQI concentrations greater than this may lead to falsely depressed results for patient samples. Testing performed at [facility], [address] [place] [address] [place] [address]. CLIA ID#: [id number] Sodium 135 136-145 MMOL/L Potassium 3.6 3.5-5.1 MMOL/L Chloride 104 98-107 MMOL/L CO2 20.7 20.0-31.0 MMOL/L Glucose Serum 346 71-110 MG/DL BUN 17 7-21 MG/DL Creat 1.01 .57-1.17 MG/DL GFR 74.2 Anion Gap 14 5-15 BUN/Creat Ratio 16.8 12.0-20.0 % Calcium 9.8 8.7-10.4 MG/DL Osmo Serum,Calculated 295 280-300 MOSM/KG CBC w/ Auto Diff Reviewed date:05/24/2024 09:27:24 AM Interpretation: Performing Lab: Notes/Report: Testing performed at: [address] [place] [address] CLIA ID [id number] WBC 9.1 4.5-11.0 X10'3 RBC 5.38 4.50-5.90 X10'6 Hgb 14.0 13.5-17.5 G/DL Hct 43.5 41.0-53.0 % MCV 80.9 80.0-100.0 FL MCH 26.0 27.0-31.0 PG MCHC 32.2 31.0-37.0 G/DL Platelet 273 150-400 X10'3 RDW-SD 43.1 35.0-49.0 FL RDW-CV 14.6 12.2-15.6 % MPV 10.3 9.2-12.0 FL Neutro Auto% 69.9 40.0-70.0 % Lymph Auto% 16.2 22.0-44.0 % Tillman Auto% 8.8 3.0-7.0 % Eos Auto% 3.6 2.0-4.0 % Baso Auto% 1.1 0.0-1.0 % Imm Gran% .4 .0-.4 % Neutro Abs 6.34 .80-7.70 Absolute Neutrophil Count 6340 Lymph Abs 1.47 .10-4.10 Tillman Abs .80 .20-1.00 Eos Abs .33 .00-.40 Baso Abs .10 .00-.20 Imm Gran Abs .04 .00-.10 NRBC# .00 .00-.20 NRBC% .00 .00-.20 /100 intact WBC's [id number] Reviewed date:06/04/2024 10:02:57 AM Interpretation: Performing Lab: Notes/Report: [id number] WBG was perfor med at [facility] under CLIA# [id number]. POCT-WBG Performed By Tamra chávez performed at: [address] [place] [address] CLIA ID [id number] Hemoglobin A1c Reviewed date:05/29/2024 09:55:34 AM Interpretation: Performing Lab: Notes/Report: Testing performed at: [address] [place] [address] CLIA ID [id number] Estimated Average Glucose(EAG). Interpretation Of Hgb A1c: 4.5-6.2 % nondiabetics. >7.0 % diabetics. Hgb A1c 11.9 3.8-6.4 % EAG 295 UBASE - Urinary Tract Infect ion (HTRx) Reviewed date:11/15/2024 01:29:41 PM Interpretation: Performing Lab:, [facility], [place]ili [place], Phone - [phone], Director - [phone] Notes/Report: Real-Time polymerase chain reaction (TaqMan qPCR) was utilized for detection for all tested organisms and resistance genes. Initiation of antimicrobial therapy prior to testing may affect results and can lead to the detection of non-living microorganisms. Detection of microbes must be correlated with current/recent antibiotic usage and patient signs and symptoms. Microbial sensitivity testing is not performed at this lab. Dispute Resolution Analyst to CFU/mL equivalent thresholds were established based on studies using known CFU/mL urine specimens performed at [facility] in [place], [place]. [facility] ([facility] Mccabe [facility], [facility]; CLIA# [id number]; Architectural Designer More Beltran, PhD, FOR[facility]LY [facility])). This test was developed, and its performance characteristics determined by [facility]. It has not been cleared or approved by the FDA. However, such approval/clearance is not required, as the laboratory is regulated and qualified under CLIA to perform high-complexity testing. This test is used for clinical purposes and should not be regarded as investigational or for research. *Approximate copies of target nucleic acid per &micro;L (Low: <2,500 copies/&micro;L, Moderate: 2,500-50,000 copies/&micro;L, High: >50,000 copies/&micro;L) National Infectious Disease Consensus Data Potentially effective oral antibiotics, based on presence of detected microbes, antimicrobial resistance genes, and national antimicrobial sensitivity data (see Summary Antibiogram). Acinetobacter baumannii 0.000 19.961 - 24.689 ppm Acinetobacter baumannii Not Detected 19.961 - 24.689 ppm Citrobacter freundii 0.000 23.000 - 31 .881 ppm Citrobacter freundii Not Detected 23.000 - 31 .881 ppm Enterobacter aerogenes, cloacae 0.000 23.000 - 31.535 ppm Enterobacter aerogenes, cloacae Not Detected 23.000 - 31.535 ppm Enterococcus faecalis, faecium 0.000 26.000 - 31.575 ppm Enterococcus faecalis, faecium Not Detected 26.000 - 31.575 ppm Escherichia coli 0.000 23.000 - 28.500 ppm Escherichia coli Not Detected 23.000 - 28.500 ppm Klebsiella pneumoniae, oxytoca 0.000 23.000 - 30.500 ppm Klebsiella pneumoniae, oxytoca Not Detected 23.000 - 30.500 ppm Morganella morganii 0.000 19.961 - 24. 689 ppm Morganella morganii Not Detected 19.961 - 24. 689 ppm Proteus mirabilis, vulgaris 0.000 23.000 - 28.500 ppm Proteus mirabilis, vulgaris Not Detected 23.000 - 28.500 ppm Pseudomonas aeruginosa 0.000 23.000 - 28.500 ppm Pseudomonas aeruginosa Not Detected 23.000 - 28.500 ppm Staphylococcus aureus 0.000 26.000 - 3 0.902 ppm Staphylococcus aureus Not Detected 26.000 - 3 0.902 ppm Streptococcus agalactiae (Group B Strep) 0.000 26.000 - 32.222 ppm Streptococcus agalactiae (Group B Strep) Not Detected 26.000 - 32.222 ppm Jeet albicans, parapsilosis, tropicalis 0.000 19.961 - 30.770 ppm Jeet albicans, parapsilosis, tropicalis Not Detected 19.961 - 30.770 ppm Jeet glabrata (Nakaseomyces glabratus) 27.354 23.000 - 32.138 ppm Jeet glabrata (Nakaseomyces glabratus) Detected 23.000 - 32.138 ppm Jeet krusei (Pichia kudriavzevii) 0.000 23.000 - 32.271 ppm Jeet krusei (Pichia kudriavzevii) Not Detected 23.000 - 32.271 ppm Serratia marcescens 0.000 23.000 - 31. 204 ppm Serratia marcescens Not Detected 23.000 - 31. 204 ppm Streptococcus pyogenes (Group A strep) 0.000 19.961 - 24.689 ppm Streptococcus pyogenes (Group A strep) Not Detected 19.961 - 24.689 ppm Staphylococcus saprophyticus 0.000 19.961 - 24.689 ppm Staphylococcus saprophyticus Not Detected 19.961 - 24.689 ppm Staphylococcus epidermidis, haemolyticus, lugdunensis 0.000 19.961 - 24.689 ppm Staphylococcus epidermidis, haemolyticus, lugdunensis Not Detected 19.961 - 24.689 ppm CULTURE, URINE, ROUTINE (395 ) Reviewed date:05/28/2024 08:13:28 AM Interpretation: Performing Lab:DA[facility][id number] Shital [facility], [id number] Michael Rodarte MD Notes/Report: FASTING: NO CULTURE, URINE, ROUTINE SEE NOTE CULTURE, URINE, ROUTINE Micro Number: [id number] Test Status: Final Specimen Source: Not given Specimen Quality: Adequate Result: No Growth NO COLLECTION DATE RECEIVED. WE HAVE USED THE DATE THE SPECIMEN WAS RECEIVED BY THIS LABORATORY THE COLLECTION DATE. IF THIS IS INCORRECT, PLEASE CONTACT CLIENT SERVICES. PHONE NUMBER: [phone] Urinalysis, Routine Reviewed date:03/13/2025 10:54:25 AM Interpretation: Performing Lab: Notes/Report: Urine-Color plae yellow Appearance cloudy Glucose 2+ Bilirubin - Ketones - Specific [place] 1.010 Occult Blood - pH 6.5 Urine Protein - Urobilinogen,Semi-Qn - Nitrite, Urine - WBC Esterase 2+ Urinalysis, Routine Reviewed date:05/10/2024 10:23:17 AM Interpretation: Performing Lab: Notes/Report: Urine-Color Yellow/milky Appearance very cloudy Glucose 3+ Bilirubin - Ketones - Specific [place]oud[place] 1.015 Occult Blood 3+ pH 6.0 Urine Protein 1+ Urobilinogen,Semi-Qn 0.2 Nitrite, Urine - WBC Esterase 1+ Gx - Recurrent Persistent Co mplicated UTI Reviewed date:05/14/2024 07:53:59 AM Interpretation: Performing Lab:, [id number] Notes/Report: PatientName: : Gender: PatientRelation: PatientAddress: , , , InsuranceName: InsuranceCode: Test Result: Guidance 7.0, Voided Urine, UTI Surgical, Test Result: PATHOGENIC DNA DETECTED amp; ESBL Positive* and ESBL Positive#A*F UTIAbnormalFlag: Guidance 7.0, Voided Urine, UTI Surgical, UTIAbnormalFlag: A Gx - Recurrent Persistent Co mplicated UTI Reviewed date:09/17/2024 09:18:45 AM Interpretation: Performing Lab:, [id number] Notes/Report: PatientName: : Gender: PatientRelation: PatientAddress: , , , InsuranceName: InsuranceCode: Test Result: Guidance 7.0, Catheterized Urine, UTI Surgical, Test Result: PATHOGENIC DNA DETECTED#A*F UTIAbnormalFlag: Guidance 7.0, Catheterized Urine, UTI Surgical, UTIAbnormalFlag: A Reason For Referral Reason Referral to Dr Schulz - 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) Referral Organization Box Referring Provider First Name ELLE Referring Provider Last Name NASEEM Referring Provider [facility] Referred Provider Specialty Infectious D isease Referral Priority Routine Medications Medication SIG (Take, Route, Frequency, Duration) Notes Start Date End Date Status Tamsulosin HCl 0.4 MG 1 capsule Orally O nce a day; Duration: 90 days 04/19/2024 03/08/2026 Active Finasteride 5 MG Take 1 tablet by adán th once daily Orally daily; Duration: 90 days Active Metoprolol Succinate 50 MG 1 capsule Orally Once a day Active Gabapentin 300 MG 1 capsule Orally Onc e a day Active FLUoxetine HCl 20 MG 1 capsule Orally On ce a day Active Clopidogrel Bisulfate 75 MG 1 tablet Orally Once a day Active Atorvastatin Calcium 20 MG 1 tablet Orally Once a day Active NovoLIN 70/30 (70-30) 100 UNIT/ML as directed Subcutaneous Act mayank Disopyramide Phosphate 100 MG as directed Orally Active Lyrica 75 MG 1 capsule Orally Onc e a day Active Docusate Sodium 100 MG 1 capsule as need ed Orally Once a day Active Tamsulosin HCl 0.4 MG 1 capsule Orally O nce a day Active Topiramate 50 MG 1 tablet Orally Once a day Active Pantoprazole Sodium 20 MG 1 tablet 1/2 t o 1 hour before morning meal Orally Once a day Active Social History Tobacco Use: Social History Observation Description Date Details (start date - stop date) Never Smoker NA - NA Tobacco Control (Standard) Question Answer Notes Tobacco use: Nonsmoker AUDIT-C (Standard) Question Answer Notes Did you have a drink containing alcohol in the p ast year? No Points 0 Interpretation Negative Problems Problem Type SNOMED Code ICD Code Onset Dates Problem Status W/U Status Risk Notes Problem Urge incontinence of urine (77435449) Urge incontinence (N39.41) Active confirmed Problem Phimosis (457608469) Phimosis (N47.1) Active confirmed Problem Lower urinary tract symptoms due to benign prostatic hypertrophy (07167154940444) Benign prostatic hyperplasia with lower urinary tract symptoms (N40.1) Active confirmed Problem Urinary hesitancy (2313640) Urinary hesitancy (R39.11) Active confirmed Problem Encounter for Beltrán catheter replacement (Z46.6) Active confirmed Problem Catheterization of urinary bladder (689481016) Beltrán catheter in place (Z96.0) Active confirmed Problem Redundant prepuce and phimosis (261899528) Phimosis of penis (N47.1) Active confirmed Problem Disorder due to type 2 diabetes mellitus (608862544) Type 2 diabetes mellitus with complication (E11.8) Active confirmed Vital Signs Heart Rate 64 /min 03/13/2025 Temperature 97.9 degrees Fahrenheit 05/23/2024 Height-cm 175.26 cm 03/13/2025 Blood pressure diastolic 76 mm Hg 03/13/2025 Weight-kg 79.38 kg 03/13/2025 Height 69 in 03/13/2025 Blood pressure systolic 138 mm Hg 03/13/2025 Weight 175 lbs 03/13/2025 BMI 25.84 kg/m2 03/13/2025 Procedures Procedure Date Ordered Date Performed Result Body Sit e Voiding Trial 04/12/2024 N/A Catheter Insertion-Routine 05/10/2024 05/10/2024 N/A SP Tube Change 07/05/2024 07/05/2024 N/A SP Tube Change 08/02/2024 08/09/2024 N/A SP Tube Change 08/30/2024 08/30/2024 N/A SP Tube Change 09/26/2024 09/26/2024 N/A SP Tube Change 10/17/2024 N/A Cathter Insertion, COMPLEX 11/14/2024 11/14/2024 N/A SP Tube Change 12/17/2024 12/17/2024 N/A Voiding Trial 02/11/2025 N/A Bladder Scan 02/11/2025 N/A Bladder Scan 03/13/2025 03/13/2025 N/A Encounters Encounter Location Date Provider Diagnosis [facility] [address] [place] [address], [place] [address] 01/23/2025 ELLE REANO [facility] [address] [place] [address], [place] [address] 04/12/2024 ELLE REANO Urinary retention R3 3.9 ; Phimosis of penis N47.1 ; Uncircumcised male Z78.9 ; Surgical counseling visit Z71.89 ; Beltrán catheter in place Z96.0 ; Type 2 diabetes mellitus with complication E11.8 and History of CVA (cerebrovascular accident) without residual deficits Z86.73 [facility] [address] [place] [address], [place] [address] 05/10/2024 RAHEEL DEUTSCH Urinary retention R3 3.9 and Complicated UTI (urinary tract infection) N39.0 [facility] [address] [place] [address], [place] [address] 05/23/2024 ELLE REANO Phimosis of penis N4 7.1 ; Preoperative examination Z01.818 ; Urinary retention R33.9 ; Uncircumcised male Z78.9 ; Beltrán catheter in place Z96.0 ; Type 2 diabetes mellitus with complication E11.8 ; History of CVA (cerebrovascular accident) without residual deficits Z86.73 ; Recent urinary tract infection Z87.440 and Cloudy urine R82.90 [facility] [address] [facility] [place] [address] 07/05/2024 ELLE REANO Urinary retention R3 3.9 and Complicated UTI (urinary tract infection) N39.0 [facility] [address] [place] [address] 08/02/2024 RAHEEL DEUTSCH Urinary retention R3 3.9 and Complicated UTI (urinary tract infection) N39.0 [facility] [address] [place] [address] 08/30/2024 RAHEEL DEUTSCH Phimosis of penis N4 7.1 and Beltrán catheter in place Z96.0 [facility] [address] [place] [address], [place] [address] 09/26/2024 ELLE REANO Phimosis of penis N4 7.1 and Urinary retention R33.9 [facility] [address] [place] [address] 10/17/2024 VAL PATEL Complicated UTI (urinary tract infection) N39.0 and Dysuria R30.0 [facility] [address] [place] [address] 11/14/2024 ELLE REANO Urinary retention R3 3.9 and Cloudy urine R82.90 [facility] [address] [facility] [address] 12/17/2024 ELLE REANO Urinary retention R3 3.9 and Beltrán catheter in place Z96.0 [facility] [address] [facility] [address] 02/11/2025 RAHEEL DEUTSCH Phimosis of penis N4 7.1 ; Urinary retention R33.9 ; Uncircumcised male Z78.9 ; Beltrán catheter in place Z96.0 ; Type 2 diabetes mellitus with complication E11.8 ; History of CVA (cerebrovascular accident) without residual deficits Z86.73 ; Recent urinary tract infection Z87.440 ; Cloudy urine R82.90 and Benign prostatic hyperplasia with lower urinary tract symptoms N40.1 [facility] [address] [facility] [address] 03/13/2025 ELLE REANO Urinary urgency R39. 15 ; Nocturia R35.1 ; Uncircumcised male Z78.9 ; Incomplete bladder emptying R33.9 ; Type 2 diabetes mellitus with complication E11.8 ; History of CVA (cerebrovascular accident) without residual deficits Z86.73 ; History of urinary retention Z87.898 and Benign prostatic hyperplasia with lower urinary tract symptoms N40.1 [facility] [address] [facility] [address] 04/19/2024 [facility] [address] [facility] [address] 05/10/2024 RAHEEL DEUTSCH [facility] [address] [facility] [address] 05/10/2024 [facility] [address] [facility] [place] [address] 05/14/2024 RAHEEL DEUTSCH [facility] [address] [facility] [address] 05/22/2024 [facility] [address] [facility] [address] 05/22/2024 [facility] Preop testing Z01.81 8 and Type 2 diabetes mellitus with complication E11.8 [facility] [address] [facility] [address] 05/28/2024 [facility] [address] [facility] [address] 07/10/2024 [facility] [address] [facility] [address] 09/10/2024 [facility] [address] [facility] [address] 09/17/2024 [facility] [address] [facility] [address] 11/15/2024 RAHEEL SCHWABER Assessments Encounter Date Diagnosis (ICD Code) Assessment Notes Treatment Notes Treatment Clinical Notes Section Notes 03/13/2025 Urinary urgency (ICD-10 - R39.15) 02/11/2025 Phimosis of penis (ICD-10 - N47.1) 80 yo male with BPH, Urinary retention, h/o phimosis. Cysto shows open bilobar prostate. Plan: continue flomax and proscar [place] today RTC in 4 weeks with IPSS, PVR, and UA with Elle Gusman APRN 12/17/[address] (ICD-10 - Z96.0) Pt here for routine beltrán change and he tolerated well. Pt was scheduled 7months ago for cysto/possible circ/possible dorsal slit and this was cancelled due to pt's A1c being too high. He will return in 4wks for routine beltrán change and cystoscopy in-office for further evaluation of the anatomy. 12/17/2024 Urinary retention (ICD-10 - R33.9) Pt here for routine beltrán change and he tolerated well. Pt was scheduled 7months ago for cysto/possible circ/possible dorsal slit and this was cancelled due to pt's A1c being too high. He will return in 4wks for routine beltrán change and cystoscopy in-office for further evaluation of the anatomy. 11/14/2024 Urinary retention (ICD-10 - R33.9) Per Dr Deutsch, pt here today for 4 week beltrán change.Dr Deutsch was not in the office today, procedure was supervised by Elle Gusman APRN. Pt tolerated well and will return in 4 weeks for next beltrán change. PTs present in room and stated that he seems to have had an infection for a few weeks, and last month they took a specimen for testing but we never received the results. Pt has tried several abx, and his urine still is malordorus and has excessive sediment. Pt otherwise feels fine. Sending urine for HT pcr 10/17/2024 Dysuria (ICD-10 - R30.0) Pt here today for routine cath change and for UA PCR for follow up from previous infection. 10/17/2024 Complicated UTI (urinary tract infection) (ICD-10 - N39.0) Pt here today for routine cath change and for UA PCR for follow up from previous infection. 09/26/2024 Phimosis of penis (ICD-10 - N47.1) Pt here for routine beltrán change and he tolerated well. He has a follow up within the next wk or 2 with his doctor for his A1c; as this needs corrected prior to surgery. Still currently on course of ABX for recent UTI. His c/o purple bag syndrome and it was recommended that he complete ABX course and then recheck urine after completion. He will return in 4wks for repeat beltrán change and repeat UA. 09/26/2024 Urinary retention (ICD-10 - R33.9) Pt here for routine beltrán change and he tolerated well. He has a follow up within the next wk or 2 with his doctor for his A1c; as this needs corrected prior to surgery. Still currently on course of ABX for recent UTI. His c/o purple bag syndrome and it was recommended that he complete ABX course and then recheck urine after completion. He will return in 4wks for repeat beltrán change and repeat UA. 08/30/[address] (ICD-10 - Z96.0) 08/30/2024 Phimosis of penis (ICD-10 - N47.1) 08/02/2024 Urinary retention (ICD-10 - R33.9) Pt here for routine beltrán change, tolerated well and will return in 4wks for repeat. 07/05/2024 Complicated UTI (urinary tract infection) (ICD-10 - N39.0) Pt here for beltrán catheter exchange. He tolerated well. He is still awaiting surgical intervention. Pt had very clear signs of purple bag syndrome; UA was obtained and was abnormal, this will be sent for testing and he will be treated accordingly to results. This patient has clinical indication for infectious disease testing. Urinalysis performed indicates the need for further sensitive detection by PCR. The patient is at higher risk for UTI complications and is being seen in the urologic setting. The enhanced diagnostic accuracy, identification of possible resistance mutations, and quicker result to better guide antibiotics and prevention infection complications that PCR provides is recommended. He will return in 4wks for repeat exchange, unless surgical intervention has been done otherwise. 07/05/2024 Urinary retention (ICD-10 - R33.9) Pt here for beltrán catheter exchange. He tolerated well. He is still awaiting surgical intervention. Pt had very clear signs of purple bag syndrome; UA was obtained and was abnormal, this will be sent for testing and he will be treated accordingly to results. This patient has clinical indication for infectious disease testing. Urinalysis performed indicates the need for further sensitive detection by PCR. The patient is at higher risk for UTI complications and is being seen in the urologic setting. The enhanced diagnostic accuracy, identification of possible resistance mutations, and quicker result to better guide antibiotics and prevention infection complications that PCR provides is recommended. He will return in 4wks for repeat exchange, unless surgical intervention has been done otherwise. 05/23/2024 Phimosis of penis (ICD-10 - N47.1) 05/23/2024 Preoperative examination (ICD-10 - Z01.818) 05/22/2024 Preop testing (ICD-10 - Z01.818) 05/10/2024 Complicated UTI (urinary tract infection) (ICD-10 - N39.0) Pt here for 4wk beltrán change. Pt notes burning and pain in the bladder all the way to the penis; with very cloudy malodorous urine. He also had a purple/blue tinge to his urinary bag. UA was obtained and will be sent for PCR testing. He will be treated accordingly to resuls. This patient has clinical indication for infectious disease testing. Urinalysis performed indicates the need for further sensitive detection by PCR. The patient is at higher risk for UTI complications and is being seen in the urologic setting. The enhanced diagnostic accuracy, identification of possible resistance mutations, and quicker result to better guide antibiotics and prevention infection complications that PCR provides is recommended. He will be treated accordingly to results. Per Dr. Deutsch he would like pt's surgery moved up sooner, I will discuss this with Raiza. Although I will still make a 4wk appt for pt to return for beltrán change. 05/10/2024 Urinary retention (ICD-10 - R33.9) Pt here for 4wk beltrán change. Pt notes burning and pain in the bladder all the way to the penis; with very cloudy malodorous urine. He also had a purple/blue tinge to his urinary bag. UA was obtained and will be sent for PCR testing. He will be treated accordingly to resuls. This patient has clinical indication for infectious disease testing. Urinalysis performed indicates the need for further sensitive detection by PCR. The patient is at higher risk for UTI complications and is being seen in the urologic setting. The enhanced diagnostic accuracy, identification of possible resistance mutations, and quicker result to better guide antibiotics and prevention infection complications that PCR provides is recommended. He will be treated accordingly to results. Per Dr. Deutsch he would like pt's surgery moved up sooner, I will discuss this with Raiza. Although I will still make a 4wk appt for pt to return for beltrán change. 04/12/2024 Phimosis of penis (ICD-10 - N47.1) 04/12/2024 Urinary retention (ICD-10 - R33.9) 04/12/2024 Uncircumcised male (ICD-10 - Z78.9) 05/22/2024 Type 2 diabetes mellitus with complication (ICD-10 - E11.8) 02/11/2025 Urinary retention (ICD-10 - R33.9) 80 yo male with BPH, Urinary retention, h/o phimosis. Cysto shows open bilobar prostate. Plan: continue flomax and proscar VT today RTC in 4 weeks with IPSS, PVR, and UA with Elle Gusman APRN 05/23/2024 Urinary retention (ICD-10 - R33.9) 08/02/2024 Complicated UTI (urinary tract infection) (ICD-10 - N39.0) Pt here for routine beltrán change, tolerated well and will return in 4wks for repeat. 11/14/2024 Cloudy urine (ICD-10 - R82.90) Per Dr Deutsch, pt here today for 4 week beltrán [address]Dr Deutsch was not in the office today, procedure was supervised by Elle Gusman APRN. Pt tolerated well and will return in 4 weeks for next beltrán change. PTs present in room and stated that he seems to have had an infection for a few weeks, and last month they took a specimen for testing but we never received the results. Pt has tried several abx, and his urine still is malordorus and has excessive sediment. Pt otherwise feels fine. Sending urine for HT pcr 03/13/2025 Nocturia (ICD-10 - R35.1) 02/11/2025 Uncircumcised male (ICD-10 - Z78.9) 80 yo male with BPH, Urinary retention, h/o phimosis. Cysto shows open bilobar prostate. Plan: continue flomax and proscar VT today RTC in 4 weeks with IPSS, PVR, and UA with Elle Gusman APRN 03/13/2025 Uncircumcised male (ICD-10 - Z78.9) 05/23/2024 Uncircumcised male (ICD-10 - Z78.9) 04/12/2024 Surgical counseling visit (ICD-10 - Z71.89) 04/12/[address] (ICD-10 - Z96.0) 05/23/[address] (ICD-10 - Z96.0) 03/13/2025 Incomplete bladder emptying (ICD-10 - R33.9) 02/11/[address] (ICD-10 - Z96.0) 80 yo male with BPH, Urinary retention, h/o phimosis. Cysto shows open bilobar prostate. Plan: continue flomax and proscar VT today RTC in 4 weeks with IPSS, PVR, and UA with Elle Gusman APRN 02/11/2025 Type 2 diabetes mellitus with complication (ICD-10 - E11.8) 80 yo male with BPH, Urinary retention, h/o phimosis. Cysto shows open bilobar prostate. Plan: continue flomax and proscar VT today RTC in 4 weeks with IPSS, PVR, and UA with Elle Gusman APRN 03/13/2025 Type 2 diabetes mellitus with complication (ICD-10 - E11.8) 05/23/2024 Type 2 diabetes mellitus with complication (ICD-10 - E11.8) 04/12/2024 Type 2 diabetes mellitus with complication (ICD-10 - E11.8) 04/12/2024 History of CVA (cerebrovascular accident) without residual deficits (ICD-10 - Z86.73) 05/23/2024 History of CVA (cerebrovascular accident) without residual deficits (ICD-10 - Z86.73) 03/13/2025 History of CVA (cerebrovascular accident) without residual deficits (ICD-10 - Z86.73) 02/11/2025 History of CVA (cerebrovascular accident) without residual deficits (ICD-10 - Z86.73) 80 yo male with BPH, Urinary retention, h/o phimosis. Cysto shows open bilobar prostate. Plan: continue flomax and proscar VT today RTC in 4 weeks with IPSS, PVR, and UA with Elle Gusman APRN 02/11/2025 Recent urinary tract infection (ICD-10 - Z87.440) 80 yo male with BPH, Urinary retention, h/o phimosis. Cysto shows open bilobar prostate. Plan: continue flomax and proscar VT today RTC in 4 weeks with IPSS, PVR, and UA with Elle Gusman APRN 03/13/2025 History of urinary retention (ICD-10 - Z87.898) 05/23/2024 Recent urinary tract infection (ICD-10 - Z87.440) 05/23/2024 Cloudy urine (ICD-10 - R82.90) 02/11/2025 Cloudy urine (ICD-10 - R82.90) 80 yo male with BPH, Urinary retention, h/o phimosis. Cysto shows open bilobar prostate. Plan: continue flomax and proscar VT today RTC in 4 weeks with IPSS, PVR, and UA with Elle Gusman APRN 03/13/2025 Benign prostatic hyperplasia with lower urinary tract symptoms (ICD-10 - N40.1) 02/11/2025 Benign prostatic hyperplasia with lower urinary tract symptoms (ICD-10 - N40.1) 80 yo male with BPH, Urinary retention, h/o phimosis. Cysto shows open bilobar prostate. Plan: continue flomax and proscar VT today RTC in 4 weeks with IPSS, PVR, and UA with Elle Gusman APRN 04/12/2024 Other Patient failed VT. Recommended replacing catheter and scheduling for cystoscopy. Nurse was only able to get a 14F in, which was still very difficult due to severe phimosis. She asked for assistance, and I was also unable to retract foreskin. Catheter draining well with clear, light yellow urine. Dr. Deutsch also came in to assess patient and recommended that we set him up for diagnostic cysto with dorsal slit, possible circumcision. How the procedure was performed was discussed along with risks/benefits/al ternatives and postprocedural expectations. Patient is on anticoagulation with Plavix (Clopidogrel). He is under the care of Dr. Wu in [place] and will need clearance. Denies problems with anesthesia in the past. He is currently on antibiotics from ER. All questions that were asked were answered and elects to proceed with procedure as scheduled. Patient will RTC postoperatively and is satisfied with plan of care. Schedule for dianostic cystoscopy, dorsal slit, possible circumcision with Dr. Deutsch. 05/23/2024 Other Patient schedul ed for diagnostic cystoscopy, dorsal slit vs. circumcision on 05/29/[address] Deutsch. How the procedure was performed was discussed along with risks/benefits/al ternatives and postprocedural expectations. Patient is on ASA and Plavix and understands to hold x 5 days prior to procedure. Denies problems with anesthesia in the past, no new medications or diagnoses since last visit. Patient has presurgical testing at [facility] today. Urine sent for culture and we will treat as indicated preoperatively. All questions that were asked were answered and elects to proceed with procedure as scheduled. Patient will RTC postoperatively and is satisfied with plan of care. 03/13/2025 Other UA with 2+ leukocyte, PVR 169ml. He denies any acute UTI symptoms today. He has some urgency and mild UUI occasionally. Deferred trial of OAB medication at this time. Encouraged double voiding. Continue Flomax and Finasteride. RTC in 4-6 months with FR/PVR, or PRN sooner. Plan Of Treatment Pending Test Test Name Order Date Urinalysis, Routine 02/11/2025 CULTURE, URINE, ROUTINE (395) 05/23/2024 Voiding Trial 02/11/2025 Voiding Trial 04/12/2024 SP Tube Change 10/17/2024 Bladder Scan 02/11/2025 UTI Pathogen Panel PCR 07/05/2024 Electrocardiogram, 12 Lead Tracing-[id number] 05/22/2024 UBASE - Urinary Tract Infection (HTRx) 0 10/17/2024 Next Appt Details Provider Name:ELLE Ant DOWNSDILLAN, 0 08/14/2025 11:00:00 AM, [address] [place], [address], Insurance Providers Payer Name Payer Address Payer Phone Subscriber Number Group Number Insured Name Patient Relationship to Insured Coverage Start Date Coverage End Date [place] Medicare [address] [facility] [employer] [id number] Chapito Mijares Self - patient is the insured [employer] [facility] [address] [place] [phone] [id number] Chapito Mijares Self - patient is the insured Medical (General) History Medical History History ICD Code Anxiety Depression Diabetes Heart Disease Hypertension Hx of stroke Erectile dysfunction nocturia 3-5x/night Urinary retention Weak urinary stream Intermittent urination Surgical History Surgery Date(Month/Year) sinus surgery 1970s Cyst removal under arm Pacemaker insertion 2019 Hospitalization History Reason Date(Month/Year) ER visit UTI 01/27/25
--- OUTSIDE RECORDS SUMMARY | 2025-04-07 00:14 | XMS_ITS | Patient Health Record ---
Author Organization [facility] Address [address] [place] [address] Care Team Providers Care Director Of Community Services Name Role Phone Tisha Funk Primary Care Provider Unavailab Alexsandra Corona Unavailable [phone] Shelley Duffy Unavailable [phone] Allergies Allergen (clinical drug ingredient) Drug/Non Drug Allergy documented on EMR Reaction Allergy Type Onset Date Status Penicillin Unknown Drug Allergy Active Results Component Value Reference Range Flag Notes Microscopic Urine [id number] Reviewed date:12/06/2024 12:05:58 PM Interpretation: Performing Lab: Notes/Report: Diagnosis Description: Candidiasis, unspecified RBC U 22 NA WBC U 614 0-5 /HPF HI Bacteria 3+ NA Hyaline Casts 1 NA SQ EPI 1 NA Budding Yeast Present Culture Urine [id number] Reviewed date:12/06/2024 12:06:04 PM Interpretation: Performing Lab: Notes/Report: Culture Urine Roni BIENVENIDO MURILLO Culture Urine t: Culture Urine Culture Urine [facility] [id number] Culture Urine n: Culture Urine Microbiology Culture Urine PROCEDURE: Culture U rine [O1] Culture Urine SOURCE: Urine BODY SITE: Culture Urine COLLECTED DATE/TIME: 12/03/2024 12:44 CDT RECEIVED DATE/TIME: 12/03/2024 15:52 CDT Culture Urine START DATE/TIME: 12/03 15:52 CDT FREE TEXT SOURCE: Culture Urine FINAL REPORT Culture Urine Final Report [] Culture Urine Verified Date/Time: 12/06/2024 06:52 CDT Culture Urine >100,000 cfu/ml. Pse udomonas aeruginosa Culture Urine SUSCEPTIBILITY RESULTS Culture Urine Pseaer Culture Urine Antibiotic MDIL MINT Culture Urine Cefepime 2 Susceptible Culture Urine Ceftazidime 2 Susceptible Culture Urine Ciprofloxacin 0.12 Susceptible Culture Urine Levofloxacin 0.5 Susceptible Culture Urine Meropenem 0.5 Susceptible Culture Urine Piperacillin/Tazobac castellon 8 Susceptible Culture Urine Order Comments Culture Urine O1: Culture Urine (C ulture Urine [id number]) Culture Urine Diagnosis Descriptio n: Candidiasis, unspecified Reason For Referral Reason jesi glabrata inf ection 6/ Diagnosis 1 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) Referral Organization [facility] Referring Provider First Name Elle Referring Provider Last Name Andrés Referring Provider Speciality Urology Referred Organization [facility] rnal Medicine & Infectious Disease Referred Provider Alexsandra Marks Referred Address [address] [place] [phone], Referred Provider Specialty Nurse Stefan Cardozo Notes Adriana Perry 11/19 11:12:12 AM >mailbox full Referral Priority Routine Medications Medication SIG (Take, Route, Frequency, Duration) Notes Start Date End Date Status Vitamin B12 100 MCG Tablet as directed Orally Active Disopyramide Phosphate 150 MG Capsule 1capsule Orally twice a day Active Metoprolol Succinate 50 MG Capsule ER 24 Hour Sprinkle 1 capsule Orally Once a day Active Tamsulosin HCl 0.4 MG Capsule TAKE 1 CAPSULE BY MOUTH ONCE DAILY Oral; Duration: 90 Days Active Pantoprazole Sodium 20 MG Tablet Delayed Release 1 tablet 1/2 to 1 hour before morning meal Orally Once a day Active Finasteride 5 MG Tablet TAKE 1 TABLET BY MOUTH ONCE DAILY Oral; Duration: 30 Days Active Aspirin 81 81 MG Tablet Delayed Release 1 tablet Orally Once a day Active Atorvastatin Calcium 20 MG Tablet 1 tablet Orally Once a day Active Clopidogrel Bisulfate 75 MG Tablet 1 tablet Orally Once a day Active Ciprofloxacin HCl 500 MG Tablet 1 tablet Orally every 12 hrs; Duration: 14 days Not-Taking Gabapentin 300 MG Capsule 1 capsule Oral ly Once a day Active FLUoxetine HCl 20 MG Capsule 1 capsule Orally Once a day; Duration: 90 days Active Hydrocortisone 1 % Cream 1 application Externally Once a day Active Topiramate 50 MG Tablet TAKE 1 TABLET BY MOUTH ONCE DAILY Oral; Duration: 90 Days Active Coenzyme Q10 75 MG Capsule as directed Orally Active Docusate Sodium 100 MG Capsule 1 capsule as needed Orally Once a day Active NovoLIN 70/30 (70-30) 100 UNIT/ML Suspension Subcutaneous; Duration: 30 Days Active Methenamine Hippurate 1 GM Tablet 1 tablet Orally Twice a day; Duration: 30 days 12/17/2024 06/14/2025 Active Social History Tobacco Use: Social History Observation Description Date Details (start date - stop date) Never Smoker NA - NA Social History Drugs/Alcohol: Social Info Question Answer Notes Caffeine Intake: 1-2 cups per day Tobacco Use: Social Info Question Answer Notes Tobacco Control (Standard) Tobacco use: Nonsmoker Additional Details Category Social Info Options Details Drugs/Alcohol: Do you drink alcohol? No Problems Problem Type SNOMED Code ICD Code Onset Dates Problem Status W/U Status Risk Notes Problem Hyperglycemia due to type 2 diabetes mellitus (439890168031748) Uncontrolled type 2 diabetes mellitus with hyperglycemia (E11.65) Active confirmed Problem Cardiac pacemaker (95618579) Cardiac pacemaker (Z95.0) Active confirmed Vital Signs Heart Rate 79 /min 12/17/2024 Temperature 97.2 degrees Fahrenheit 12/17/2024 Respiratory Rate 17 /min 12/17/2024 Oximetry 99 % 12/17/2024 Height-cm 175.26 cm 12/17/2024 Blood pressure diastolic 76 mm Hg 12/17/2024 Weight-kg 83.8 kg 12/17/2024 Height 69 in 12/17/2024 Blood pressure systolic 128 mm Hg 12/17/2024 Weight 184.75 lbs 12/17/2024 BMI 27.28 kg/m2 12/17/2024 Encounters Encounter Location Date Provider Diagnosis [facility] [address] [place] [address] 09/26/2024 Shelley Tati Cardiac pacemaker Z95.0 [facility] [address] [place] [address], [place] [address] 12/03/2024 Alexsandra Kendrick 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 ; Chronic indwelling Beltrán catheter Z97.8 ; Retention of urine R33.9 and Uncontrolled type 2 diabetes mellitus with hyperglycemia E11.65 [facility] [address] [place] [address], [place] [phone] 12/17/2024 Alexsandra Kendrick 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 ; Chronic indwelling Beltrán catheter Z97.8 ; Retention of urine R33.9 ; Uncontrolled type 2 diabetes mellitus with hyperglycemia E11.65 and Recurrent UTI (urinary tract infection) N39.0 [facility] [address] [place] [phone] 12/06/2024 Alexsandra Delacruzpool Assessments Encounter Date Diagnosis (ICD Code) Assessment Notes Treatment Notes Treatment Clinical Notes Section Notes 12/17/2024 Chronic indwelling Beltrán catheter (ICD-10 - Z97.8) 1. Urinary retention chronic beltrán, followed by Dr. Martínez Uncontrolled T2DM with Hyperglycemia 2. + PCR urine testing with Jesi glabrata, Patient is asymptomatic - Asymptomatic candiduria rarely requires antifungal therapy, unless it occurs in the setting of immune compromise or in patients who undergo urinary tract manipulation Discussed with patient needs to work on controlling diabetes and visit with Food Tester in order to have circumcision and cystoscopy 3. Acute UTI (6-2-25) Urine WC 614, UC >100,000 Psa (S; Cipro) Cipro started, 500 mg BID x 14 days However UTI symptoms challenging with Dementia as a baseline Repeat urine micro today 4. 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 Urinary retention chronic beltrán, followed by Dr. Martínez Uncontrolled T2DM with Hyperglycemia 2. + PCR urine testing with Jesi glabrata, Patient is asymptomatic - Asymptomatic candiduria rarely requires antifungal therapy, unless it occurs in the setting of immune compromise or in patients who undergo urinary tract manipulation Discussed with patient needs to work on controlling diabetes and visit with Food Tester in order to have circumcision and cystoscopy 3. Acute UTI (6-2-25) Urine WC 614, UC >100,000 Psa (S; Cipro) Cipro started, 500 mg BID x 14 days However UTI symptoms challenging with Dementia as a baseline Repeat urine micro today 4. UTI Prophylaxis; Begin Methenamine Hippurate 1 gm BID Will continue to follow patient, return in 3 months or PRN if any UTI symptoms 12/03/2024 Chronic indwelling Beltrán catheter (ICD-10 - Z97.8) 1. Urinary retention chronic beltrán, followed by Dr. Martínez Uncontrolled T2DM with Hyperglycemia 2. + PCR urine testing with Jesi glabrata, Patient is asymptomatic Discussed with patient needs to work on controlling diabetes and visit with Food Tester in order to have circumcision and cystoscopy 3. 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 Urinary retention chronic beltrán, followed by Dr. Martínez Uncontrolled T2DM with Hyperglycemia 2. + PCR urine testing with Jesi glabrata, Patient is asymptomatic Discussed with patient needs to work on controlling diabetes and visit with Food Tester in order to have circumcision and cystoscopy 3. Repeat urine studies today, previous PCR urine testing per Urology - Asymptomatic candiduria rarely requires antifungal therapy, unless it occurs in the setting of immune compromise or in patients who undergo urinary tract manipulation Consider CT scan of the abdomen and pelvis with persistent candiduria and uncontrolled T2DM, this population is at increased risk for formation of fungus balls or abscess formation Will continue to follow patient, return in 2 weeks or same day if he becomes symptomatic 09/26/2024 Cardiac pacemaker (ICD-10 - Z95.0) 12/17/2024 Retention of urine (ICD-10 - R33.9) 1. Urinary retention chronic beltrán, followed by Dr. Martínez Uncontrolled T2DM with Hyperglycemia 2. + PCR urine testing with Jesi glabrata, Patient is asymptomatic - Asymptomatic candiduria rarely requires antifungal therapy, unless it occurs in the setting of immune compromise or in patients who undergo urinary tract manipulation Discussed with patient needs to work on controlling diabetes and visit with Food Tester in order to have circumcision and cystoscopy 3. Acute UTI (6-2-25) Urine WC 614, UC >100,000 Psa (S; Cipro) Cipro started, 500 mg BID x 14 days However UTI symptoms challenging with Dementia as a baseline Repeat urine micro today 4. UTI Prophylaxis; Begin Methenamine Hippurate 1 gm BID Will continue to follow patient, return in 3 months or PRN if any UTI symptoms 12/03/2024 Retention of urine (ICD-10 - R33.9) 1. Urinary retention chronic beltrán, followed by Dr. Martínez Uncontrolled T2DM with Hyperglycemia 2. + PCR urine testing with Jesi glabrata, Patient is asymptomatic Discussed with patient needs to work on controlling diabetes and visit with Food Tester in order to have circumcision and cystoscopy 3. Repeat urine studies today, previous PCR urine testing per Urology - Asymptomatic candiduria rarely requires antifungal therapy, unless it occurs in the setting of immune compromise or in patients who undergo urinary tract manipulation Consider CT scan of the abdomen and pelvis with persistent candiduria and uncontrolled T2DM, this population is at increased risk for formation of fungus balls or abscess formation Will continue to follow patient, return in 2 weeks or same day if he becomes symptomatic 12/03/2024 Uncontrolled type 2 diabetes mellitus with hyperglycemia (ICD-10 - E11.65) 1. Urinary retention chronic beltrán, followed by Dr. Martínez Uncontrolled T2DM with Hyperglycemia 2. + PCR urine testing with Jesi glabrata, Patient is asymptomatic Discussed with patient needs to work on controlling diabetes and visit with Food Tester in order to have circumcision and cystoscopy 3. Repeat urine studies today, previous PCR urine testing per Urology - Asymptomatic candiduria rarely requires antifungal therapy, unless it occurs in the setting of immune compromise or in patients who undergo urinary tract manipulation Consider CT scan of the abdomen and pelvis with persistent candiduria and uncontrolled T2DM, this population is at increased risk for formation of fungus balls or abscess formation Will continue to follow patient, return in 2 weeks or same day if he becomes symptomatic 12/17/2024 Uncontrolled type 2 diabetes mellitus with hyperglycemia (ICD-10 - E11.65) 1. Urinary retention chronic beltrán, followed by Dr. Martínez Uncontrolled T2DM with Hyperglycemia 2. + PCR urine testing with Jesi glabrata, Patient is asymptomatic - Asymptomatic candiduria rarely requires antifungal therapy, unless it occurs in the setting of immune compromise or in patients who undergo urinary tract manipulation Discussed with patient needs to work on controlling diabetes and visit with Food Tester in order to have circumcision and cystoscopy 3. Acute UTI (6-2-25) Urine WC 614, UC >100,000 Psa (S; Cipro) Cipro started, 500 mg BID x 14 days However UTI symptoms challenging with Dementia as a baseline Repeat urine micro today 4. UTI Prophylaxis; Begin Methenamine Hippurate 1 gm BID Will continue to follow patient, return in 3 months or PRN if any UTI symptoms 12/17/2024 Recurrent UTI (urinary tract infection) (ICD-10 - N39.0) 1. Urinary retention chronic beltrán, followed by Dr. Martínez Uncontrolled T2DM with Hyperglycemia 2. + PCR urine testing with Jesi glabrata, Patient is asymptomatic - Asymptomatic candiduria rarely requires antifungal therapy, unless it occurs in the setting of immune compromise or in patients who undergo urinary tract manipulation Discussed with patient needs to work on controlling diabetes and visit with Food Tester in order to have circumcision and cystoscopy 3. Acute UTI (6-2-25) Urine WC 614, UC >100,000 Psa (S; Cipro) Cipro started, 500 mg BID x 14 days However UTI symptoms challenging with Dementia as a baseline Repeat urine micro today 4. UTI Prophylaxis; Begin Methenamine Hippurate 1 gm BID Will continue to follow patient, return in 3 months or PRN if any UTI symptoms 12/17/2024 Other Pt had leg bag today, was unable to procure urine for micro Order sent with patient to complete at PCP office or [facility] 1. Urinary retention chronic beltrán, followed by Dr. Martínez Uncontrolled T2DM with Hyperglycemia 2. + PCR urine testing with Jesi glabrata, Patient is asymptomatic - Asymptomatic candiduria rarely requires antifungal therapy, unless it occurs in the setting of immune compromise or in patients who undergo urinary tract manipulation Discussed with patient needs to work on controlling diabetes and visit with Food Tester in order to have circumcision and cystoscopy 3. Acute UTI (6-2-25) Urine WC 614, UC >100,000 Psa (S; Cipro) Cipro started, 500 mg BID x 14 days However UTI symptoms challenging with Dementia as a baseline Repeat urine micro today 4. UTI Prophylaxis; Begin Methenamine Hippurate 1 gm BID Will continue to follow patient, return in 3 months or PRN if any UTI symptoms Plan Of Treatment Pending Test Test Name Order Date Culture Urine [id number] 12/17/2024 Microscopic Urine [id number] 12/17/2024 Insurance Providers Payer Name Payer Address Payer Phone Subscriber Number Group Number Insured Name Patient Relationship to Insured Coverage Start Date Coverage End Date [place] [address] [place] [phone] [id number] BIENVENIDO MURILLO Self - patient is the insured [facility] [address] [place] [phone] [id number] LIDIABIENVENIDO LANZA Self - patient is the insured Medical (General) History Medical History History ICD Code Diabetes cardiomyopathy measles\ mumps\ chicken pox whooping cough\heart disease bladder infections migraine headache diabetes hypertension infectious mono stroke Surgical History Surgery Date(Month/Year) denies recent Hospitalization History Reason Date(Month/Year) [facility] WP-UTI/unable to void 08.29.2024
--- NOTE | 2025-04-07 01:17 | XRR_ITS ---
PROCEDURE INFORMATION: Exam: XR Chest Exam date and time: 04/07/2025 1:22 AM Age: 80 years old Clinical indication: Other: General weakness; Prior surgery; Surgery date: 6+ months; Surgery type: Pacer TECHNIQUE: Imaging protocol: Radiologic exam of the chest. Views: 1 view. COMPARISON: CT angio chest PE protcl [id number] 02/19/2023 6:15 PM FINDINGS: Lungs: Unremarkable. No consolidation. Pleural spaces: Unremarkable. No pleural effusion. No pneumothorax. Heart/Mediastinum: Heart is large. Left-sided pacing device. Bones/joints: No acute finding. XR/XR chest 1V portable [id number] IMPRESSION: No acute findings.
--- NOTE | 2025-04-07 01:17 | ED_ITS ---
HPI - Weakness 2 General: Chief complaint: Weakness Stated complaint: weakness Time Seen by Provider: 04/07/25 00:26 History of Present Illness: Patient is an 80-year-old male presenting with acute confusion, weakness, and headache that worsened today. Per caregiver, the patient was 'completely out of it' with 'his head hanging over' when they called for medical assistance. The patient has baseline memory issues but experienced a significant decline in mental status today. He reports bilateral weakness and severe shortness of breath, stating he 'can't hardly walk across the room' without breathing difficulty. The patient had a similar episode approximately two weeks ago where he was 'just out of it, ' but was not hospitalized at that time. The caregiver reports the patient's blood pressure was initially low upon EMS arrival, and he has already received 1 liter of IV fluids. The patient recently saw Dr. Wu last week, who reportedly ordered blood work and prescribed a diuretic ('water pill') for fluid retention. A urinary catheter was removed approximately one month ago, with reportedly normal urination since then. The patient denies fever, cough, vomiting, diarrhea, dysuria, or recent sick contacts. Related Data Home Medications ?Medication ?Instructions ?Recorded ?Confirmed aspirin 81 mg tablet,delayed 81 mg PO DAILY 05/20/22 1 release coenzyme Q10 75 mg capsule (Ultra 300 mg PO DAILY 05/0404/04/25 CoQ10) mecobalamin (vitamin B12) 5,000 5,000 mcg PO DAILY 04/04/25 mcg disintegrating tablet Previous Rx's ?Medication ?Instructions ?Recorded custom heat molded inserts #1 ea 06/14/22 diabetic shoes #1 ea 06/14/22 insulin syringe-needle U-100 1 mL #500 ea 08/19/22 29 gauge x 1/2 (BD Insulin Syringe Safety-Rey) diabetic shoes with 3 custom #1 ea 08/23/22 inserts blood-glucose sensor (FreeStyle #2 ea 11/18/23 Robert 3 Sensor device) disopyramide phosphate 150 mg See Rx Instructions .Rou te 01/10/24 capsule .COMPLEX #120 caps tamsulosin 0.4 mg capsule (Flomax) 0.4 mg PO DAILY #15 caps 03/26/24 gabapentin 300 mg capsule See Rx Instructions .Route 1 .COMPLEX #180 caps topiramate 50 mg tablet 50 mg PO DAILY #90 tabs 04/04 02/24 Novolin 70/30 U-100 Insulin 100 50 unit (0.5 mL) SUBCU T BID 1 09/13/24 unit/mL subcutaneous suspension month #30 mL (insulin NPH and regular human) insulin NPH-regular 70-30 U-100 50 unit (0.5 mL) SUBCU T DAILY 1 10/15/24 insulin 100 unit/mL subcutaneous month #15 mL pen (Novolin 70-30 FlexPen U-100 Insulin) diabetic shoes with 3 inserts #1 ea 11/08/24 clopidogrel 75 mg tablet See Rx Instructions .Route 0 11/19/24 .COMPLEX #90 tabs metoprolol succinate 50 mg See Rx Instructions .Route 11/19/24 tablet,extended release 24 hr .COMPLEX #90 tabs atorvastatin 20 mg tablet See Rx Instructions .Route 0 03/11/25 .COMPLEX #90 tabs pantoprazole 20 mg tablet,delayed See Rx Instructions .Route 03/11/25 release .COMPLEX #90 tabs fluoxetine 20 mg capsule See Rx Instructions .Route 0 03/21/25 .COMPLEX #90 caps furosemide 20 mg tablet (Lasix) 20 mg PO DAILY #30 tab s 03/28/25 potassium chloride 8 mEq 8 meq PO DAILY #30 caps 03/05 11/25 capsule,extended release Allergies Allergy/AdvReac Type Severity Reaction Status Date / Time amoxicillin Allergy ALGY-Rash Verified 04/04/25 08:56 Penicillins Allergy rash Verified 04/04/25 08:56 [facility] ED 2 PFS: Medical History (Updated 04/07/25 @ 03:54 by Andi Blum DO) Diabetic neuropathy Diabetes mellitus type 2 with complications, uncontrolled Mixed hyperlipidemia Depression, major, in partial remission GERD (gastroesophageal reflux disease) Hypertrophic cardiomyopathy ICD (implantable cardioverter-defibrillator) in place Pacemaker/ICD - Medtronic AAIR-> DDDR lower rate 60 bpm Pacemaker Surgical History History of sinus surgery Status post excision of lipoma right axilla Family History Father Diabetes Hypertension CAD (coronary artery disease) Mother Diabetes Stroke Grandfather Dementia Son Diabetes Family/Other Lung disease Denies family history of Clotting disorder Chronic kidney disease (CKD) Suicide Anesthesia complication Bleeding disorder Cancer Social History Smoking and tobacco/nicotine status: never used tobacco/nicotine Alcohol intake: never Substance/Drug Use: never Lives independently: Yes Household members: spouse service: No Current occupational status: retired Current occupation: sales - electrical [employer] Physical Exam 2 Const: COMMON NORMALS: no acute distress and alert GENERAL APPEARANCE: c ooperative and frail appearing HENMT: COMMON NORMALS: normocephalic, atraumatic and Normal external nose present HEAD & SCALP: normocephalic and atraumatic FACE & SINUS: normal facial exam and face symmetric NOSE: Normal external nose present Eye: COMMON NORMALS: Equal, round and reactive pupils present and EOMs intact bilaterally PUPIL: Yes Equal, round and reactive pupils present Neck/C-Spine: GENERAL: Yes trachea midline Chest: CHEST: Yes Symmetrical chest wall rise Resp: COMMON NORMALS: normal respiratory effort, No retractions, No use of accessory muscles and clear to auscultation bilaterally AUSCULTATION: clear to auscultation bilaterally Cardio: COMMON NORMALS: regular rate and regular rhythm RATE: regular rate RHYTHM: regular rhythm GI: COMMON NORMALS: Normal to inspection, nondistended, normoactive bowel sounds present Extremity: COMMON NORMALS: no pedal edema Neuro: PASTOR COMA SCALE: document GCS findings [place] coma scale eye opening: Spontaneous Pastor coma scale verbal response: Orientated Pastor coma scale motor response: Obey commands Pastor coma scale total score: 15 S ENSORIUM/ORIENTATION: Yes alert COORDINATION/BALANCE: [id number] test normal and [id number]-gu-[id number] test normal SPEECH: speech normal SENSORY EXAM: Y es extremities (intact) MOTOR EXAM: 5/5 motor strength present throughout and Pronator motor function not present COORDINATION: [id number]-rb-[id number] test normal and ojlq-dv-qcvo test normal Psych: COMMON NORMALS: speech normal SPEECH: Yes normal speech Skin: COMMON NORMALS: no rashes or lesions noted NARRATIVE SKIN EXAM: Pale GENERAL SKIN EXAM: no rashes or lesions noted Course 2 Vital Signs: Vital signs: Vital Signs Temperature 97.9 F 04/07/25 00:13 Pulse Rate 62 04/07/25 03:36 Respiratory Rate 18 04/07/25 03:36 Blood Pressure 162/82 04/07/25 03:36 Pulse Oximetry 97 04/07/25 03:36 Oxygen Delivery Me thod Room Air 04/07/25 02:00 MDM - Weakness Medical Decision Making Patient has not been hypotensive here. He is afebrile. His white blood cell count is 13.9, with no left shift. His CRP is only 3. Urinalysis is pending. Chest x-ray does not show significant pneumonia. Lactic acid is 3.5 with creatinine of 1.5 which is a bump above his baseline. Troponin initially is 80. 2-hour troponin is pending. Patient has had 2.5 L of fluid which is more than a sepsis bolus for this patient. Covering with Levaquin after blood cultures. Patient will be admitted for sepsis with urinary tract infection. Lab Data 04/07/25 00:20 04/07/25 00:20 Radiology Impressions Chest X-Ray 04/07/25 01:17 IMPRESSION: No acute findings. Head CT 04/07/25 01:17 IMPRESSION: 1. No acute intracranial hemorrhage. If symptoms persist consider MRI, as indicated. 2. Moderate to severe age-related changes. A few other chronic/incidental findings above. 3. 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 4. There is mild nonspecific air about the cavernous sinuses, likely incidental. Often seen. 5. A few other chronic/incidental findings above. Abdomen/Pelvis CT 04/07/25 02:38 IMPRESSION: 1. Mild sigmoid diverticulitis/colitis suspected with no evidence of abscess or free air. 2. Large prostate with large bladder. No overt hydronephrosis. 3. No small bowel obstruction, abscess or free air. 4. Several chronic/incidental findings above. Laboratory Results WBC 13.90 10^3/uL (3.29-11.43) H 04/07/25 00:20 RBC 5.53 10^6/uL (3.85-5.65) 04/07/25 00:20 Hgb 14.90 g/dL (11.27-16.99) 04/07/25 00:20 Hct 45.4 % (37-53) 04/07/25 00:20 MCV 82.1 fl (82-101) 04/07/25 00:20 MCH 26.9 pg (27-33) L 04/07/25 00:20 MCHC 32.8 g/dL (30-55) 04/07/25 00:20 RDW 14.1 % (12.1-15.1) 04/07/25 00:20 Plt Count 312 10^3/cmm (157-399) 04/07/25 00:20 MPV 10.6 fL (7.4-10.4) H 04/07/25 00:20 Neut % (Auto) 67.4 % 04/07/25 00:20 Lymph % (Auto) 17.6 % 04/07/25 00:20 Glenn % (Auto) 8.8 % 04/07/25 00:20 Eos % (Auto) 4.2 % 04/07/25 00:20 Baso % (Auto) 1.5 % 04/07/25 00:20 Neut # (Auto) 9.35 10^3/uL (1.8-7.7) H 04/07/25 00:20 Lymph # (Auto) 2.5 10^3/uL (0.8-4.8) 04/07/25 00:20 Glenn # (Auto) 1.2 10^3/uL (0.2-0.9) H 04/07/25 00:20 Eos # (Auto) 0.6 10^3/uL (0.0-0.8) 04/07/25 00:20 Baso # (Auto) 0.2 10^3/uL (0.0-0.1) H 04/07/25 00:20 Nucleated RBC % (auto) 0 % 04/07/25 00:20 Nucleated RBCs # 0.0 /100WBC 04/07/25 00:20 Sodium 137 mmol/L (136-145) 04/07/25 00:20 Potassium 3.4 mmol/L (3.5-5.1) L 04/07/25 00:20 Chloride 99 mmol/L (98-107) 04/07/25 00:20 Carbon Dioxide 22 mmol/L (22-29) 04/07/25 00:20 Anion Gap 19.4 (5-19) H 04/07/25 00:20 BUN 17 mg/dL (8-23) 04/07/25 00:20 Creatinine 1.5 mg/dL (0.7-1.2) H 04/07/25 00:20 GFR Calculation Not Reportable 04/07/25 00:20 Glucose 298 mg/dL (65-115) H 04/07/25 00:20 Calculated Osmolality 297 mOsm/kg (285-295) H 04/07/25 00:20 Lactic Acid 3.5 mmol/L (0.5-2.2) H 04/07/25 00:20 Calcium 9.1 mg/dL (8.5-10.5) 04/07/25 00:20 Phosphorus 2.9 mg/dL (2.5-4.5) 04/07/25 00:20 Magnesium 1.8 mg/dL (1.7-2.3) 04/07/25 00:20 Total Bilirubin 0.6 mg/dL (0.15-1.2) 04/07/25 00:20 AST 15 U/L (0-40) 04/07/25 00:20 ALT 15 U/L (0-41) 04/07/25 00:20 Alkaline Phosphatase 102 U/L (40-130) 04/07/25 00:20 Troponin T Baseline 80 ng/L (0-15) H 04/07/25 00:20 Troponin T 120 Minute 53.7 ng/L (0-15) H 04/07/25 02:12 Delta Troponin T -26.3 ABS# (0-10) L 04/07/25 02:12 C-Reactive Protein 3.0 mg/L (0.0-4.9) 04/07/25 00:20 Total Protein 7.8 g/dL (6.6-8.7) 04/07/25 00:20 Albumin 4.0 g/dL (3.5-5.2) 04/07/25 00:20 Globulin 3.8 g/dL (1.3-4.6) 04/07/25 00:20 Urine Color Yellow (Yellow) 04/07/25 01:59 Urine Appearance Cloudy (CLEAR) A 04/07/25 01:59 Urine pH 6.0 (5-7) 04/07/25 01:59 Ur Specific [place] 1.015 (1.005-1.030) 04/07/25 01:59 Urine Protein Trace (Negative) A 04/07/25 01:59 Urine Glucose (UA) 3+ (Normal) H 04/07/25 01:59 Urine Ketones Negative (Negative) 04/07/25 01:59 Urine Blood Trace (Negative) A 04/07/25 01:59 Urine Nitrate Negative (Negative) 04/07/25 01:59 Urine Bilirubin Negative (Negative) 04/07/25 01:59 Urine Urobilinogen 0.2 mg/dL (Negative) 04/07/25 01:59 Ur Leukocyte Esterase 2+ (Negative) A 04/07/25 01:59 Urine RBC 0-4 /hpf (0-2) H 04/07/25 01:59 Urine WBC >100 /hpf (0-5) H 04/07/25 01:59 Ur Squamous Epith Cells 0-2 /hpf (0-5) 04/07/25 01:59 Ur Transition Epith Cell 5-10 /hpf 04/07/25 01:59 Amorphous Sediment Not Reportable 04/07/25 01:59 Urine Bacteria Trace /hpf (NONE) 04/07/25 01:59 Urine Yeast Trace /hpf 04/07/25 01:59 All radiology interpretation(s) finalized by discharge Discharge Plan Discharge Patient Disposition: Admitted As Inpatient Admit Provider: Kelvin Bedoya Clinical Impression: SHERRON (acute kidney injury), Sepsis, Complicated UTI (urinary tract infection) Condition: Stable Coding Level of Care Code ED Cost Estimating Engineer for Harriet Nicolas
--- NOTE | 2025-04-07 01:17 | CTR_ITS ---
PROCEDURE INFORMATION: Exam: CT Head Without Contrast Exam date and time: 04/07/2025 1:30 AM Age: 80 years old Clinical indication: Other: General weakness TECHNIQUE: Imaging protocol: Computed tomography of the head without contrast. Radiation optimization: All CT scans at this facility use at least one of these dose optimization techniques: automated exposure control; mA and/or kV adjustment per patient size (includes targeted exams where dose is matched to clinical indication); or iterative reconstruction. COMPARISON: No relevant prior studies available. RADIATION DOSE METRICS: Total DLP (mGy-cm): 1041.99 FINDINGS: Brain: No focal hemorrhage or midline shift is identified. The ventricles and parenchyma show moderate to severe atrophy and chronic bicerebral white matter ischemic change. Old left thalamic lacune measures 8 mm. A few left cerebellar old CVAs measure up to 2.3 cm. Cerebral ventricles: No ventriculomegaly or evidence of hydrocephalus. Paranasal sinuses: A few areas of mild sinus mucosal thickening. Previous FESS. Mastoid air cells: Visualized mastoid air cells are well aerated. Bones: No displaced skull fracture is noted. Soft tissues: Unremarkable. Vasculature: Diffuse vascular calcifications are present. There is mild air about the cavernous sinuses, likely incidental. Often seen. CT/CT head wo con* [id number] IMPRESSION: 1. No acute intracranial hemorrhage. If symptoms persist consider MRI, as indicated. 2. Moderate to severe age-related changes. A few other chronic/incidental findings above. 3. 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 4. There is mild nonspecific air about the cavernous sinuses, likely incidental. Often seen. 5. A few other chronic/incidental findings above.
--- NOTE | 2025-04-07 01:18 | ECG_ITS ---
[facility] Test Date: 2025-04-07 Pat Name: Chapito Mijares Department: Room: Gender: Male Policy Specialist: : 1945 Requested By: Andi Juarez Order Number: [id number] Jacki MD: Jacoby Wu M.D. Measurements Intervals [place] Rate: 72 P: -83 [place]: 266 QRS: -75 QRSD: 141 T: 16 QT: 450 QTc: 495 Interpretive Statements ELECTRONIC ATRIAL PACEMAKER RIGHT BUNDLE BRANCH BLOCK [120+ ms QRS DURATION, UPRIGHT V1, 40+ ms S IN I/aVL/V4/V5/V6] LEFT ANTERIOR FASCICULAR BLOCK [QRS AXIS <= -45, QR IN I, RS IN II] PROBABLE SEPTAL MYOCARDIAL INFARCTION , PROBABLY OLD [35 ms Q WAVE IN V1/V2] Compared to ECG 03/25/2025 10:54:37 No significant changes Electronically Signed On 04-07-2025 21:29:10 CDT by Jacoby Wu M.D. [email or web address]
[2025-04-07 01:26] LABS: Hematocrit 45.4 % (37-53); Hemoglobin 14.90 g/dL (11.27-16.99); Mean Corpuscular HGB Conc 32.8 g/dL (30-55); Mean Corpuscular Hemoglobin 26.9 pg (27-33); Mean Corpuscular Volume 82.1 fl (82-101); Nucleated Red Blood Cells % 0 %; Platelet Count 312 10^3/cmm (157-399); Red Blood Count 5.53 10^6/uL (3.85-5.65); White Blood Count 13.90 10^3/uL (3.29-11.43)
[2025-04-07 01:46] LABS: Alanine Aminotransferase 15 U/L (0-41); Albumin Level 4.0 g/dL (3.5-5.2); Alkaline Phosphatase 102 U/L (40-130); Anion Gap 19.4 (5-19); Aspartate Amino Transferase 15 U/L (0-40); Blood Urea Nitrogen 17 mg/dL (8-23); Calcium 9.1 mg/dL (8.5-10.5); Carbon Dioxide 22 mmol/L (22-29); Chloride 99 mmol/L (98-107); Globulin 3.8 g/dL (1.3-4.6); Glucose 298 mg/dL (65-115); Lactic Sepsis W/Reflex 3.5 mmol/L (0.5-2.2); Magnesium 1.8 mg/dL (1.7-2.3); Osmolality Calculated 297 mOsm/kg (285-295); Potassium 3.4 mmol/L (3.5-5.1); Sodium 137 mmol/L (136-145); Total Protein 7.8 g/dL (6.6-8.7)
[2025-04-07 01:47] LABS: Troponin(5th) Baseline 80 ng/L (0-15)
[2025-04-07 01:57] LABS: Creatinine Clr Calc Pharmacy 39.9886; Reflex Lactate Order REFLEX LACTIC ORDERD
[2025-04-07] MEDS: levofloxacin-dextrose 5 % 500 MG/100 ML PREMIX 100 MG IV (02:14)
[2025-04-07 02:15] LABS: Glucose Urine UA 3+ (Normal); Nitrate Urine Negative (Negative); Specific Gravity, Urine 1.015 (1.005-1.030)
[2025-04-07 02:24] LABS: UA Manual Slide Review YES
[2025-04-07 02:27] LABS: Add Urine Microscopic? YES
--- NOTE | 2025-04-07 02:38 | CTR_ITS ---
PROCEDURE INFORMATION: Exam: CT Abdomen And Pelvis Without Contrast Exam date and time: 04/07/2025 2:49 AM Age: 80 years old Clinical indication: Abnormal findings; Abnormal lab test; Abnormal kidney function lab tests and elevated wbc; Prior surgery; Surgery date: 6+ months; Surgery type: Pacer; UTI with leukocytosis, bg, and elevated lactic acid. ; Additional info: UTI, sepsis. , Hospitalist request TECHNIQUE: Imaging protocol: Computed tomography of the abdomen and pelvis without contrast. Radiation optimization: All CT scans at this facility use at least one of these dose optimization techniques: automated exposure control; mA and/or kV adjustment per patient size (includes targeted exams where dose is matched to clinical indication); or iterative reconstruction. COMPARISON: CT angio chest PE protcl [id number] 02/19/2023 6:15 PM RADIATION DOSE METRICS: Total DLP (mGy-cm): 738.67 FINDINGS: Lungs: Minor areas of bibasilar atelectasis or scarring. Diaphragm: Tiny hiatal hernia. Liver: Liver appears cirrhotic. Gallbladder and biliary ducts: No calcified gallstones or biliary dilation identified. Pancreas: Unremarkable with no suspicious mass. No ductal dilation. Spleen: The spleen is not enlarged. No suspicious mass is noted. Adrenal glands: Normal. No mass. Kidneys and ureters: Right perinephric densities. No hydronephrosis or renal mass. Stomach and bowel: The colon is rather fecal filled. No small bowel obstruction, abscess or free air. Severe sigmoid diverticulosis. Involving several there is mild wall thickening and mild surrounding fat stranding. No abscess or free air. Appendix: No evidence of appendicitis. Intraperitoneal space: No abscess or free air. Vasculature: Advanced diffuse vascular calcification noted. Lymph nodes: No enlarged lymph nodes. Urinary bladder: Large bladder. Tiny bladder dome probable urachal remnant or scar. See series 4, image 183. Reproductive: Large prostate. Bones/joints: Advanced spine DJD. Diffuse osteopenia. Soft tissues: No acute or suspicious finding noted. CT/CT kidney stone [id number] IMPRESSION: 1. Mild sigmoid diverticulitis/colitis suspected with no evidence of abscess or free air. 2. Large prostate with large bladder. No overt hydronephrosis. 3. No small bowel obstruction, abscess or free air. 4. Several chronic/incidental findings above.
--- NOTE | 2025-04-07 02:43 | PM.HP ---
Providers/Chief Complaint Admitting Physician: Kelvin Bedoya MD Primary Care Provider: Tisha Funk MD Chief Complaint: weakness History of Present Illness As per the previous notes and the patient: Chapito Mijares is a 80 year old male with PMH of DM complicated with neuropathy and uncontrolled blood glucose level with HbA1c of 12% in August 2024, hypertrophic cardiomyopathy s/p pacemaker and following with the cardiology, HLD, came with weakness, acute confusion and headaches. As per the notes and the caregiver, the patient is having memory issues more than many months and this time, the patient was 'completely out of it' with 'his head hanging over' in the morning after the patient had his breakfast. He did not pass out but he was not responding much therefore the called for medical assistance.The reported that the patient's blood pressure was initially low upon EMS arrival, and he has already received 1 liter of IV fluids. The patient has a recent urinary catheterization about 2 to 3 weeks ago. There was no associated diarrhea, abdominal pain, nausea or vomiting, chest pain or chest pressure, or any shortness of breath acutely at that time. The patient has baseline memory issues but never been worked as outpatient for dementia and no medications prescribed yet. The also reported the patient has multiple falls around 3-4 times in 6 months where he has aware that he is falling down, no postictal state, no head trauma, no focal deficit. The reported it is just his gait imbalance that leads to falls. He has uncontrolled diabetes with neuropathy and was scheduled to see painting machine operator. Review of Systems General: Reports: 10 or more systems reviewed and unremarkable except in HPI and below Medications/Allergies Home Medications ?Medication ?Instructions ?Recorded ?Confirmed ?Last Taken ?Type aspirin 81 mg tablet,delayed 81 mg PO DAILY 05/20/22 04/04/25 Unknown History release coenzyme Q10 75 mg capsule (Ultra 300 mg PO DAILY 05/20/22 04/04/25 Unknown History CoQ10) mecobalamin (vitamin B12) 5,000 5,000 mcg PO DAILY 05/20/22 04/04/25 Unknown History mcg disintegrating tablet custom heat molded inserts #1 ea 06/14/22 04/04/25 Unknown Rx diabetic shoes #1 ea 06/14/22 04/04/25 Unknown Rx insulin syringe-needle U-100 1 mL #500 ea 08/19/22 04/04/25 Unknown Rx 29 gauge x 1/2 (BD Insulin Syringe Safety-Rey) diabetic shoes with 3 custom #1 ea 08/23/22 04/04/25 Unknown Rx inserts blood-glucose sensor (FreeStyle #2 ea 11/18/23 04/04/25 Unknown Rx Robert 3 Sensor device) disopyramide phosphate 150 mg See Rx Instructions .Route 01/10/24 04/04/25 Unknown Rx capsule .COMPLEX #120 caps tamsulosin 0.4 mg capsule (Flomax) 0.4 mg PO DAILY #15 caps 03/26/24 04/04/25 Unknown Rx gabapentin 300 mg capsule See Rx Instructions .Route 04/30/24 04/04/25 Unknown Rx .COMPLEX #180 caps topiramate 50 mg tablet 50 mg PO DAILY #90 tabs 04/30/24 04/04/25 Unknown Rx Novolin 70/30 U-100 Insulin 100 50 unit (0.5 mL) SUBCUT BID 1 09/13/24 04/04/25 Unknown Rx unit/mL subcutaneous suspension month #30 mL (insulin NPH and regular human) insulin NPH-regular 70-30 U-100 50 unit (0.5 mL) SUBCUT DAILY 1 10/15/24 04/04/25 Unknown Rx insulin 100 unit/mL subcutaneous month #15 mL pen (Novolin 70-30 FlexPen U-100 Insulin) diabetic shoes with 3 inserts #1 ea 11/08/24 04/04/25 Unknown Rx clopidogrel 75 mg tablet See Rx Instructions .Route 11/19/24 04/04/25 Unknown Rx .COMPLEX #90 tabs metoprolol succinate 50 mg See Rx Instructions .Route 11/19/24 04/04/25 Unknown Rx tablet,extended release 24 hr .COMPLEX #90 tabs atorvastatin 20 mg tablet See Rx Instructions .Route 03/11/25 04/04/25 Unknown Rx .COMPLEX #90 tabs pantoprazole 20 mg tablet,delayed See Rx Instructions .Route 03/11/25 04/04/25 Unknown Rx release .COMPLEX #90 tabs fluoxetine 20 mg capsule See Rx Instructions .Route 03/21/25 04/04/25 Unknown Rx .COMPLEX #90 caps furosemide 20 mg tablet (Lasix) 20 mg PO DAILY #30 tabs 03/28/25 04/04/25 Unknown Rx potassium chloride 8 mEq 8 meq PO DAILY #30 caps 03/28/25 04/04/25 Unknown Rx capsule,extended release Allergies Allergy/AdvReac Type Severity Reaction Status Date / Time amoxicillin Allergy ALGY-Rash Verified 04/04/25 08:56 Penicillins Allergy rash Verified 04/04/25 08:56 PFSH Acute PFSH: Medical History (Updated 04/07/25 @ 03:49 by Kelvin Bedoya MD) Diabetic neuropathy Diabetes mellitus type 2 with complications, uncontrolled Mixed hyperlipidemia Depression, major, in partial remission GERD (gastroesophageal reflux disease) Hypertrophic cardiomyopathy ICD (implantable cardioverter-defibrillator) in place Pacemaker/ICD - Medtronic AAIR-> DDDR lower rate 60 bpm Pacemaker Surgical History History of sinus surgery Status post excision of lipoma right axilla Family History Father Diabetes Hypertension CAD (coronary artery disease) Mother Diabetes Stroke Grandfather Dementia Son Diabetes Family/Other Lung disease Denies family history of Clotting disorder Chronic kidney disease (CKD) Suicide Anesthesia complication Bleeding disorder Cancer Social History Smoking and tobacco/nicotine status: never used tobacco/nicotine Alcohol intake: never Substance/Drug Use: never Lives independently: Yes Household members: spouse service: No Current occupational status: retired Current occupation: sales - electrical [employer] Vitals/I&O/Wt Last Vital Signs Temp 97.9 F 04/07/25 00:13 Pulse 61 04/07/25 02:00 Resp 14 04/07/25 02:00 BP 152/73 04/07/25 02:00 Pulse Ox 97 04/07/25 02:00 O2 Del Method Room Air 04/07/25 02:00 04/06/25 04/06/25 04/07/25 14:59 22:59 06:59 Intake Total 0 / 0 Balance 0 / 0 Weight last 48 hrs Weight 80.104 kg Physical Exam Narrative: General: Alert and oriented to time place and person at this time, lying comfortably without any distress HEENT: Normocephalic, atraumatic, grossly unremarkable exam Cardio: normal rate rhythm, normal S1-S2 without any murmurs, rubs, or gallops and JVD normal Respiratory: normal vascular breathing on auscultation without any wheezes, stridor, rhonchi GI: Abdomen soft, nontender, nondistended, normoactive bowel sounds present all 4 quadrants, no renal angle tenderness elicited. Neuro: intact cranial nerves motor and sensory and cerebellar/coordination function without any focal neurological deficit Behavior: Appropriate and cooperative Extremities: Adequate palpable pulses, mild trace edema Skin: grossly unremarkable exam Data 04/07/25 00:20 04/07/25 00:20 Micro: Microbiology 04/07/25 01:46 Blood Culture - Preliminary Blood SPECIMEN COLLECTED 04/07/25 00:20 Blood Culture - Preliminary Blood SPECIMEN COLLECTED A&P Assessment and plan 1. Delirium due to another medical condition: - found to have UTI and started on ceftriaxone 1gm daily - adequate hydration - monitor renal parameters - re-orientation daily - OT/PT referral 2. Complicated UTI (urinary tract infection): start ceftriaxone 1gm daily FU urine cultures CT wo contrast for abd pelvis 3. Severe sepsis: recieved fluid bolus and is fluid responsive, high lactate and increased WBCs with UA positive for UTI FU blood and urine cultures antibiotics, ceftriaxone 1gm daily, and later to narrow down according to the cultures result gentle hydration for 10 hours considering patient having hypertrophic cardiomyopathy monitor intake and output monitor vitals and maintain MAP >65mmhg 4. SHERRON (acute kidney injury): - likely secondary to severe sepsis - recieved fluid bolus, continue gentle hydration for 10 hrs with RL at 100ml/hr - monitor renal parameters - insert folleys for I/O monitoring and remove when there is no clinical indication 5. Hypokalemia: - correction provided with 20meq of oral - monitor in the morning 6. Weakness generalized: OT/PT referral seems multifactorial. TSH normal, however age fraility and UTI are additional factors 7. Dementia: re-orientation daily not on any dementia medications, for PCP follow up at the time of discharge 8. Hypertrophic cardiomyopathy: cont on aspirin, clopidogrel and statins patient on Pacemaker 9. ICD (implantable cardioverter-defibrillator) in place: following with the cardio and recently had a pacemaker check continue to monitor for any concerning cardiac symptoms and vitals 10. Diabetes mellitus type 2 with complications, uncontrolled: patient on high dose Novlin 70/30, need medications reconciliation, hba1c in 08/28: 12% started on medium dose insulin S/s and later to add fixed dose long acting after medication reconciliation 11. GERD (gastroesophageal reflux disease): PPI daily maalox and caco2 as needed ondansterone as needed for vomiting 12. Encounter for screening involving social determinants of health (SDoH): The patient lives alone with the who is also requiring mobility assistance through walker. Patient had multiple falls and the reported that it is unable for her to hold him or take care of him when he has a fall. There is no home health aide to assist the son lives around and on and off checks with his parents. java technical manager referral for further addressing social determinants and safe disposition postdischarge. PDMP PDMP Reviewed: Not Reviewed Attestations Medical Necessity Statement*: Chapito Mijares's hospital stay will require greater than 2 midnights for management of severe sepsis, SHERRON, hypokalemia and generalised weakness Time Spent in Patient Care: 16 - 35 minutes (>than 50% of time spent in counselling and/or direct pt care on unit). Other Attestations: Patient condition has been discussed at length with the patient/family, I have independently reviewed the chart labs imaging/diagnostics/EKG. the goals of care and code status with the patient/family/NOK/legal real estate representative, and documented accordingly. The patient/family has been informed about the current condition and further plan of care. Agreed with the plan of care and understood without any language barrier. Every effort was made to ensure accuracy of environmental director. Any obvious errors or omissions should be clarified with the author of the document. Coding Level of Care Code 34159 Diagnoses Delirium due to another medical condition F05 Complicated UTI (urinary tract infection) N39.0 Severe sepsis A41.9; R65.20 SHERRON (acute kidney injury) N17.9 Hypokalemia E87.6 Weakness generalized R53.1 Dementia F03.90 Hypertrophic cardiomyopathy I42.2 ICD (implantable cardioverter-defibrillator) in place Z95.810 Diabetes mellitus type 2 with complications, uncontrolled GERD (gastroesophageal reflux disease) K21.9 Encounter for screening involving social determinants of health (SDoH) Z13.9
[2025-04-07] MEDS: heparin 5,000 unit/mL INJ 1 mL 5000 UNIT SUBCUT ×2 (03:14→14:15)
[2025-04-07] MEDS: cefTRIAXone 1,000 mg SDV 1000 MG IVP (03:14)
[2025-04-07 03:19] LABS: Troponin 5 2HR 53.7 ng/L (0-15); Troponin 5 2HR Delta -26.3 ABS# (0-10)
[2025-04-07 03:29] LABS: Lactic Acid level (Lactate) 2.1 mmol/L (0.5-2.2)
[2025-04-07] MEDS: pantoprazole 40 mg SDV IVP (04:49)
--- NOTE | 2025-04-07 06:39 | ECG_ITS ---
[facility] Test Date: 2025-04-07 Pat Name: Chapito Mijares Department: Room: 253 Gender: Male Delivery Specialist: : 1945 Requested By: Andi Juarez Order Number: [id number] Echeverria MD: Jacoby Wu M.D. Measurements Intervals Henry Rate: 59 P: 260 CT: 265 QRS: -61 QRSD: 133 T: -10 QT: 457 QTc: 456 Interpretive Statements ELECTRONIC ATRIAL PACEMAKER RIGHT BUNDLE BRANCH BLOCK [120+ ms QRS DURATION, UPRIGHT V1, 40+ ms S IN I/aVL/V4/V5/V6] LEFT ANTERIOR FASCICULAR BLOCK [QRS AXIS <= -45, QR IN I, RS IN II] MINIMAL VOLTAGE CRITERIA FOR LVH, CONSIDER NORMAL VARIANT [MEETS CRITERIA IN ONE OF: R(aVL), S(V1), R(V5), R(V5/V6)+S(V1)] Compared to ECG 04/07/2025 00:09:50 Myocardial infarct finding no longer present Electronically Signed On 04-07-2025 21:31:10 CDT by Jacoby Wu M.D. [id number]
[2025-04-07] MEDS: ATORVASTATIN 20 MG TABLET PO (06:42)
[2025-04-07 06:45] LABS: Troponin 5 6HR 51.02 ng/L (0-15)
[2025-04-07 07:07] LABS: Troponin 5 6HR Delta -28.98 ng/L (0-12)
[2025-04-07 07:27] LABS: Vitamin B12 > 2000 pg/mL (232-1245)
--- NOTE | 2025-04-07 09:15 | ECG_ITS ---
[facility] Test Date: 2025-04-07 Pat Name: Chapito Mijares Department: Room: 253 Gender: Male Non Destructive Testing Specialist: : 1945 Requested By: Andi Juarez Order Number: [id number] Jacki MD: Jacoby Wu M.D. Measurements Intervals [place] Rate: 60 P: -89 IN: 263 QRS: -62 QRSD: 135 T: -19 QT: 479 QTc: 479 Interpretive Statements ELECTRONIC ATRIAL PACEMAKER RIGHT BUNDLE BRANCH BLOCK [120+ ms QRS DURATION, UPRIGHT V1, 40+ ms S IN I/aVL/V4/V5/V6] LEFT ANTERIOR FASCICULAR BLOCK [QRS AXIS <= -45, QR IN I, RS IN II] MODERATE VOLTAGE CRITERIA FOR LVH, CONSIDER NORMAL VARIANT [MEETS CRITERIA IN ONE OF: R(aVL), S(V1), R(V5), R(V5/V6)+S(V1)] Compared to ECG 04/07/2025 06:39:45 No significant changes Electronically Signed On 04-07-2025 21:30:35 CDT by Jacoby Wu M.D. [email or web address]
--- NOTE | 2025-04-07 11:13 | P.PN_ITS ---
Subjective 2 Subjective: - Patient was seen this morning - Alert oriented x 3, following all comm ands - He is eating his breakfast, no lighthe adedness, dizziness, no chest pain, no abdominal pain Vitals/I&O/Wt Last Vital Signs Temp 97.5 F L 04/07/25 07:47 Pulse 62 04/07/25 07:47 Resp 15 04/07/25 07:47 BP 176/86 04/07/25 07:47 Pulse Ox 93 04/07/25 07:47 O2 Del Method Room Air 04/07/25 07:47 04/06/25 04/07/25 04/07/25 22:59 06:59 14:59 Intake Total 1600 / 1600 Balance 1600 / 1600 Weight last 48 hrs Weight 83.28 kg Weight 81.374 kg Weight 83.28 kg Weight 83.28 kg Weight 80.104 kg Physical Exam 2 Const: COMMON NORMALS: no acute distress and patient oriented x3 Resp: COMMON NORMALS: normal respiratory effort, No retractions, No use of accessory muscles and clear to auscultation bilaterally AUSCULTATION: clear to auscultation bilaterally Cardio: COMMON NORMALS: regular rate, regular rhythm, S1 normal heart sound present and S2 normal heart sound present RATE: regular rate RHYTHM: r egular rhythm HEART SOUNDS: S1 normal heart sound present and S2 normal heart sound present GI: COMMON NORMALS: Normal to inspection, nondistended, normoactive bowel sounds present and non-tender Back/Pelvis: OTHER: No CVA tenderness, no flank pain Extremity: COMMON NORMALS: no pedal edema Neuro: COMMON NORMALS: patient oriented x3 Psych: COMMON NORMALS: mental status grossly normal Urinary Catheter Management: Chand: Cath Placed During This Visit: yes Reason for Continuing Indwelling Catheter: Acute Urinary Retention or Obstruction Urinary Catheter Date of Insertion: 04/07/25 Urinary Catheter Time of Insertion: 03:35 Data 04/07/25 00:20 04/07/25 00:20 Micro: Microbiology 04/07/25 01:46 Blood Culture - Preliminary Blood SPECIMEN COLLECTED 04/07/25 00:20 Blood Culture - Preliminary Blood SPECIMEN COLLECTED A&P Assessment and plan 1. Delirium due to another medical condition: 2. Complicated UTI (urinary tract infection): 3. Severe sepsis: 4. SHERRON (acute kidney injury): 5. Hypokalemia: 6. Weakness generalized: 7. Dementia: re-orientation daily not on any dementia medications, for PCP follow up at the time of discharge 8. Hypertrophic cardiomyopathy: continue on aspirin, clopidogrel and statin patient on Pacemaker 9. ICD (implantable cardioverter-defibrillator) in place: following with the cardio and recently had a pacemaker check continue to monitor for any concerning cardiac symptoms and vitals 10. Diabetes mellitus type 2 with complications, uncontrolled: 11. GERD (gastroesophageal reflux disease): PPI daily 12. Encounter for screening involving social determinants of health (SDoH): The patient lives alone with the who is also requiring mobility assistance through walker. Patient had multiple falls and the reported that it is unable for her to hold him or take care of him when he has a fall. There is no home health aide to assist the son lives around and on and off checks with his parents. intermediate project manager referral for further addressing social determinants and safe disposition postdischarge. 13. Acute encephalopathy: Plan: Acute encephalopathy secondary to UTI - Continue IV antibiotics Urinary tract infection, continue IV antibiotics Sepsis secondary to UTI, continue IV fluids, continue IV Rocephin History of type 2 diabetes mellitus - Moderate dose sliding scale Hypertrophic cardiomyopathy, ICD - Continue metoprolol - Will have family bring in disopyramide Peripheral DVT prophylaxis PDMP PDMP Reviewed: Not Reviewed Attestations 2 Medical Necessity Statement*: Patient requires hospitalization for acute encephalopathy, UTI, sepsis Diagnoses Delirium due to another medical condition F05 Complicated UTI (urinary tract infection) N39.0 Severe sepsis A41.9; R65.20 SHERRON (acute kidney injury) N17.9 Hypokalemia E87.6 Weakness generalized R53.1 Dementia F03.90 Hypertrophic cardiomyopathy I42.2 ICD (implantable cardioverter-defibrillator) in place Z95.810 Diabetes mellitus type 2 with complications, uncontrolled GERD (gastroesophageal reflux disease) K21.9 Encounter for screening involving social determinants of health (SDoH) Z13.9 Acute encephalopathy G93.40
[2025-04-07] MEDS: metoprolol succinate ER (24 HR) 50 mg Tablet PO (12:20)
[2025-04-07] MEDS: metroNIDAZOLE IV 500 MG/100 ML PREMIX 100 MG IV ×2 (12:21→17:58)
[2025-04-08] MEDS: cefTRIAXone 1,000 mg SDV 1000 MG IVP (02:39)
[2025-04-08] MEDS: heparin 5,000 unit/mL INJ 1 mL 5000 UNIT SUBCUT ×2 (02:40→15:33)
[2025-04-08] MEDS: metroNIDAZOLE IV 500 MG/100 ML PREMIX 100 MG IV ×3 (02:40→20:35)
[2025-04-08 03:28] LABS: Hematocrit 40.5 % (37-53); Hemoglobin 13.00 g/dL (11.27-16.99); Mean Corpuscular HGB Conc 32.1 g/dL (30-55); Mean Corpuscular Hemoglobin 26.6 pg (27-33); Mean Corpuscular Volume 82.8 fl (82-101); Nucleated Red Blood Cells % 0 %; Platelet Count 216 10^3/cmm (157-399); Red Blood Count 4.89 10^6/uL (3.85-5.65); White Blood Count 8.78 10^3/uL (3.29-11.43)
[2025-04-08 03:50] VITALS: BP 151/77; PULSE 61; RESP 14; TEMP 36.4; O2SAT 97
[2025-04-08 03:52] LABS: Alanine Aminotransferase 13 U/L (0-41); Albumin Level 3.5 g/dL (3.5-5.2); Alkaline Phosphatase 85 U/L (40-130); Anion Gap 16.7 (5-19); Aspartate Amino Transferase 18 U/L (0-40); Blood Urea Nitrogen 15 mg/dL (8-23); Calcium 8.6 mg/dL (8.5-10.5); Carbon Dioxide 21 mmol/L (22-29); Chloride 104 mmol/L (98-107); Creatinine Clr Calc Pharmacy 61.0502; Globulin 2.8 g/dL (1.3-4.6); Glucose 168 mg/dL (65-115); Osmolality Calculated 291 mOsm/kg (285-295); Potassium 3.7 mmol/L (3.5-5.1); Sodium 138 mmol/L (136-145); Total Protein 6.3 g/dL (6.6-8.7)
[2025-04-08] MEDS: pantoprazole 40 mg SDV IVP (04:33)
[2025-04-08] MEDS: ATORVASTATIN 20 MG TABLET PO (04:34)
[2025-04-08] MEDS: metoprolol succinate ER (24 HR) 50 mg Tablet PO (04:35)
[2025-04-08 07:31] VITALS: BP 179/87; PULSE 60; RESP 18; TEMP 36.6; O2SAT 95
[2025-04-08 08:00] VITALS: BP 179/87; PULSE 60; RESP 18; TEMP 36.6
[2025-04-08 11:06] VITALS: BP 146/65; PULSE 59; RESP 17; TEMP 36.6; O2SAT 96
[2025-04-08 16:31] VITALS: BP 156/73; PULSE 59; RESP 18; TEMP 36.4; O2SAT 95
--- NOTE | 2025-04-08 17:28 | P.PN_ITS ---
Subjective 2 Subjective: 80-year-old male accompanied b y his Ibis. He has been admitted for UTI but CT of the abdomen also showed mild sigmoid diverticulitis or colitis so he was treated with metronidazole as well. Ibis gives most of the history and says the patient has had confusion for the last 6 months often does not know where he is at. She states they moved from [place] 3 years ago and he is always talking about going home. He does not realize they are already at home. Sometimes he asked if she is going to take Sissy with her to go to the store but she herself is Sissy. She states that in the last week he has become more confused and Tuesday he was nonresponsive show she brought him to the hospital. He has had a indwelling Chand for urinary retention by the urologist for 1 year removed in recent weeks. He was found to have enlarged prostate and overfull bladder based on CT scan this admission. Urine has shown Pseudomonas pansensitive in the past but still would not typically be covered by the Rocephin. Urinalysis this admission white cells positive nitrates negative leukocyte esterase positive blood culture less than 5000 colonies Vitals/I&O/Wt Last Vital Signs Temp 97.5 F L 04/08/25 16:31 Pulse 59 L 04/08/25 16:31 Resp 18 04/08/25 16:31 BP 156/73 04/08/25 16:31 Pulse Ox 95 04/08/25 16:31 O2 Del Method Room Air 04/08/25 16:31 04/08/25 04/08/25 04/08/25 06:59 14:59 22:59 Intake Total 2019 460 / 460 Output Total 875 / 3075 Balance -775 / -1055 460 / 460 Weight last 48 hrs Weight 83.416 kg Weight 83.28 kg Weight 81.374 kg Weight 83.28 kg Weight 83.28 kg Weight 80.104 kg Physical Exam 2 Narrative: General well-developed well-nourished male in no acute cardiopulmonary stress he is alert and oriented to person [facility] April 2025. He tells me that his children's are named Masood, Michael and staff which is correct. 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 CV regular rate and rhythm Lungs clear to auscultation bilaterally Abdomen positive bowel tones soft he has no tenderness or rebound tenderness at all. Left lower quadrant not tender at all. Calves no tenderness cords pretibial edema Skin warm and dry Urinary Catheter Management: Chand: Cath Placed During This Visit: yes Reason for Continuing Indwelling Catheter: Acute Urinary Retention or Obstruction Urinary Catheter Date of Insertion: 04/07/25 Urinary Catheter Time of Insertion: 03:35 Data 04/08/25 01:40 04/08/25 01:40 Micro: Microbiology 04/07/25 01:59 Urine Culture - Preliminary Urine,Clean Catch 04/07/25 01:46 Blood Culture - Preliminary Blood NEGATIVE TO DATE 04/07/25 00:20 Blood Culture - Preliminary Blood NEGATIVE TO DATE A&P Assessment and plan 1. Delirium due to another medical condition: Attributable to infection on top of underlying dementia although patient is oriented to my exam today giving essentially all correct answers 2. Complicated UTI (urinary tract infection): UA actually very positive but urine culture negative for single pathogen is showing low colony count 3. SHERRON (acute kidney injury): Creatinine was 1.5 now back down to 1 with IV fluid 4. Hypokalemia: Replaced from 3.4-3.7 5. Dementia: re-orientation daily not on any dementia medications, for PCP follow up at the time of discharge Fairly well-oriented today 6. Hypertrophic cardiomyopathy: continue on aspirin, clopidogrel and statin patient on Pacemaker 7. ICD (implantable cardioverter-defibrillator) in place: following with the cardio and recently had a pacemaker check continue to monitor for any concerning cardiac symptoms and vitals Continue on antiarrhythmics including disopyramide 8. Diabetes mellitus type 2 with complications, uncontrolled: Stable 9. GERD (gastroesophageal reflux disease): PPI daily 10. Encounter for screening involving social determinants of health (SDoH): The patient lives alone with the who is also requiring mobility assistance through walker. Patient had multiple falls and the reported that it is unable for her to hold him or take care of him when he has a fall. There is no home health aide to assist the son lives around and on and off checks with his parents. diabetes territory manager referral for further addressing social determinants and safe disposition postdischarge. thinks she could take care of him safely at home as he is not violent or combative but would like him to get therapy either placement for therapy briefly or in their home 11. Acute encephalopathy: Resolved 12. Diverticulitis of sigmoid colon: Read as sigmoid diverticulitis versus colitis. Will continue antibiotics for 5 days 13. Urinary retention due to benign prostatic hyperplasia: When Chand was placed return 400 cc and not particularly impressive for retention PDMP PDMP Reviewed: Not Reviewed Attestations 2 Medical Necessity Statement*: Patient remained in the hospital for IV antibiotics and will remain in the hospital for additional midnight Coding Level of Care Code 41333 Diagnoses Delirium due to another medical condition F05 Complicated UTI (urinary tract infection) N39.0 SHERRON (acute kidney injury) N17.9 Hypokalemia E87.6 Dementia F03.90 Hypertrophic cardiomyopathy I42.2 ICD (implantable cardioverter-defibrillator) in place Z95.810 Diabetes mellitus type 2 with complications, uncontrolled GERD (gastroesophageal reflux disease) K21.9 Encounter for screening involving social determinants of health (SDoH) Z13.9 Acute encephalopathy G93.40 Diverticulitis of sigmoid colon K57.32 Urinary retention due to benign prostatic hyperplasia N40.1; R33.8 Time Spent (min) 40
[2025-04-08 19:52] VITALS: BP 171/81; PULSE 60; RESP 16; TEMP 36.7; O2SAT 96
[2025-04-09] VITALS (7 sets, daily range): BP systolic 140–157; BP diastolic 66–82; PULSE 56–74; RESP 16–18; TEMP 36.5–37; O2SAT 92–97
[2025-04-09] MEDS: heparin 5,000 unit/mL INJ 1 mL 5000 UNIT SUBCUT ×2 (02:57→15:19)
[2025-04-09] MEDS: cefTRIAXone 1,000 mg SDV 1000 MG IVP (02:57)
[2025-04-09] MEDS: metroNIDAZOLE IV 500 MG/100 ML PREMIX 100 MG IV ×3 (02:59→19:33)
[2025-04-09] MEDS: metoprolol succinate ER (24 HR) 50 mg Tablet PO (05:12)
[2025-04-09] MEDS: ATORVASTATIN 20 MG TABLET PO (05:12)
--- NOTE | 2025-04-09 09:53 | PC.CHAP ---
Pastoral Care Encounter/Spiritual Assessment Type of Contact [] Declined audiology technician visit [] Patient/Family/Request visit [] Outpatient visit [] Follow-up visit [] Physician referral [] Code/Alert [] Routine visit [] Staff referral [] Actively dying [x] Patient sleeping [] Family support [] [] Out of room [] Palliative care [] [] Receiving care in room [] Pre-surgical visit [] Trauma [] Long length of stay [] ICU visit [] Other: Relational/Emotional Strength [] Patient feels connected with others/family/visitors/staff [] Distress [] Loneliness/isolation [] Abandonment Spirituality of Patient [] Person of Brenda [] Attends Restoration of their Brenda [] Believes in Prayer [] Reads Bible or Mosque materials [] There are Spiritual issues to be addressed Automobile Taillight Assembler Interventions [] Prayer [] Active listening [] Non-anxious presence [] Spiritual/emotional support [] Crisis/trauma care [] Spiritual counseling [] Bereavement support [] Provided bereavement packet [] Provided Bible/devotional materials [] Provided toy/stuffed animal, coloring book to patient or family member [] Provided Communion [] Anointing/Savery [] Salvation [] Completed spiritual assessment [] Other: Impact on Illness or Injury [] Angry [] Fearful [] Anxious [] Often cries [] Exhaustion [] Unable to work [] Unable to attend scientology [] Unable to walk/stand [] Unable to read [] Unable to drive [] Unable to eat/drink [] Unable to sleep [] Unable to be with family [] Patient intubated [] Other: Summary Time spent with patient
[2025-04-09 11:30] LABS: Prostate Specific Antigen < 0.014 ng/mL (0-4)
--- NOTE | 2025-04-09 13:47 | PC.NURSE ---
Chand removed Chand removed intact, no pain or complaints from patient.
--- NOTE | 2025-04-09 16:47 | P.PN_ITS ---
Subjective 2 Subjective: 80-year-old male accompanied b y his [employer]. He has been admitted for UTI but CT of the abdomen also showed mild sigmoid diverticulitis or colitis so he was treated with metronidazole as well. states that patient has had multiple falls in the last 3 to 4 months is adamant that he needs to be admitted to detention facility for rehab. Patient has had history of TIAs in the past Vitals/I&O/Wt Last Vital Signs Temp 97.7 F 04/09/25 15:46 Pulse 65 04/09/25 15:46 Resp 17 04/09/25 15:46 BP 144/73 04/09/25 15:46 Pulse Ox 95 04/09/25 15:46 O2 Del Method Room Air 04/09/25 15:46 04/09/25 04/09/25 04/09/25 06:59 14:59 22:59 Intake Total 400 / 1080 340 / 340 Output Total 1350 / 2650 800 / 800 Balance -950 / -1570 -460 / -460 Weight last 48 hrs Weight 83.189 kg Weight 83.416 kg Physical Exam 2 Narrative: General well-developed well-nourished male in no acute cardiopulmonary stress he is alert and oriented to person [facility] but could not tell me the name of the hospital CV regular rate and rhythm Lungs clear to auscultation bilaterally Abdomen positive bowel tones soft he has no tenderness or rebound tenderness at all. Back no flank pain Calves no tenderness cords pretibial edema Skin warm and dry Patient is able to ambulate with standby assist and walker his gait is mildly ataxic Urinary Catheter Management: Chand: Cath Placed During This Visit: yes Reason for Continuing Indwelling Catheter: Acute Urinary Retention or Obstruction Urinary Catheter Date of Insertion: 04/07/25 Urinary Catheter Time of Insertion: 03:35 Data 04/08/25 01:40 04/08/25 01:40 Micro: Microbiology 04/07/25 01:59 Urine Culture - Final Urine,Clean Catch A&P Assessment and plan 1. Delirium due to another medical condition: Attributable to infection on top of underlying dementia. Patient is poor historian and appears to have mild dementia 2. Complicated UTI (urinary tract infection): UA actually very positive but urine culture negative for single pathogen is showing low colony count of mixed superficial reinaldo less than 5000 and 10,000- 20,000 respectively for reinaldo 1 and reinaldo 2. Other than elevated white count patient did not have hypotension tachycardia or tachypnea to suggest sepsis. Lactic acid was 2.1 which is high normal 3. SHERRON (acute kidney injury): Creatinine was 1.5 now back down to 1 with IV fluid 4. Hypokalemia: Replaced from 3.4-3.7 5. Dementia: re-orientation daily not on any dementia medications, for PCP follow up at the time of discharge Fairly well-oriented today 6. Hypertrophic cardiomyopathy: continue on aspirin, clopidogrel and statin patient on Pacemaker 7. ICD (implantable cardioverter-defibrillator) in place: following with the cardio and recently had a pacemaker check continue to monitor for any concerning cardiac symptoms and vitals Continue on antiarrhythmics including disopyramide 8. Diabetes mellitus type 2 with complications, uncontrolled: Stable 9. GERD (gastroesophageal reflux disease): PPI daily 10. Encounter for screening involving social determinants of health (SDoH): The patient lives alone with the who is also requiring mobility assistance through walker. Patient had multiple falls and the reported that it is unable for her to hold him or take care of him when he has a fall. There is no home health aide to assist the son lives around and on and off checks with his parents. certified energy manager referral for further addressing social determinants and safe disposition postdischarge. thinks she could take care of him safely at home as he is not violent or combative but would like him to get therapy either placement for therapy briefly or in their home 11. Acute encephalopathy: Resolved 12. Diverticulitis of sigmoid colon: Read as sigmoid diverticulitis versus colitis. Will continue antibiotics for 5 days 13. Urinary retention due to benign prostatic hyperplasia: When Chand was placed return 400 cc and not particularly impressive for retention. Chand was removed today and postvoid residual this afternoon was 24 cc. PSA done today shows PSA is less than 0.014. This is extremely low especially given the CT scan read as large prostate. Patient will follow-up with Dr. Ramos his urologist in [place]. Leave Chand out. I started Avodart but this may not be necessary given the very low PSA. Again follow-up with Dr. Ramos PDMP PDMP Reviewed: Not Reviewed Attestations 2 Medical Necessity Statement*: Patient tj in hospital for therapy and 1 more day of IV antibiotics. Anticipate switch to oral antibiotics and discharge to detention facility tomorrow Coding Level of Care Code 53944 Diagnoses Delirium due to another medical condition F05 Complicated UTI (urinary tract infection) N39.0 SHERRON (acute kidney injury) N17.9 Hypokalemia E87.6 Dementia F03.90 Hypertrophic cardiomyopathy I42.2 ICD (implantable cardioverter-defibrillator) in place Z95.810 Diabetes mellitus type 2 with complications, uncontrolled GERD (gastroesophageal reflux disease) K21.9 Encounter for screening involving social determinants of health (SDoH) Z13.9 Acute encephalopathy G93.40 Diverticulitis of sigmoid colon K57.32 Urinary retention due to benign prostatic hyperplasia N40.1; R33.8 Time Spent (min) 35
[2025-04-10] MEDS: heparin 5,000 unit/mL INJ 1 mL 5000 UNIT SUBCUT (02:39)
[2025-04-10] MEDS: metroNIDAZOLE IV 500 MG/100 ML PREMIX 100 MG IV ×2 (02:39→11:07)
[2025-04-10] MEDS: cefTRIAXone 1,000 mg SDV 1000 MG IVP (02:39)
[2025-04-10 04:00] VITALS: BP 154/68; PULSE 88; RESP 16; TEMP 36.7; O2SAT 95
[2025-04-10] MEDS: ATORVASTATIN 20 MG TABLET PO (04:50)
[2025-04-10] MEDS: metoprolol succinate ER (24 HR) 50 mg Tablet PO (04:50)
[2025-04-10 07:55] VITALS: BP 171/77; PULSE 62; RESP 18; TEMP 36.5; O2SAT 95
--- NOTE | 2025-04-10 09:03 | PC.SOCIAL ---
IMM Update pg 2 of IMM Updated and reviewed w/ patient and his . Copy provided and copy dated, initialed and placed in chart.
--- NOTE | 2025-04-10 09:19 | PC.CHAP ---
Pastoral Care Encounter/Spiritual Assessment Type of Contact [] Declined auditing specialist visit [] Patient/Family/Request visit [] Outpatient visit [] Follow-up visit [] Physician referral [] Code/Alert [x] Routine visit [] Staff referral [] Actively dying [] Patient sleeping [] Family support [] [] Out of room [] Palliative care [] [] Receiving care in room [] Pre-surgical visit [] Trauma [] Long length of stay [] ICU visit [] Other: Relational/Emotional Strength [x] Patient feels connected with others/family/visitors/staff [] Distress [] Loneliness/isolation [] Abandonment Spirituality of Patient [x] Person of Brenda [] Attends Yarsani of their Brenda [x] Believes in Prayer [] Reads Bible or Religion materials [] There are Spiritual issues to be addressed Digester Capper Interventions [x] Prayer [x] Active listening [] Non-anxious presence [x] Spiritual/emotional support [] Crisis/trauma care [] Spiritual counseling [] Bereavement support [] Provided bereavement packet [] Provided Bible/devotional materials [] Provided toy/stuffed animal, coloring book to patient or family member [] Provided Communion [] Anointing/[place] [] Salvation [x] Completed spiritual assessment [] Other: Impact on Illness or Injury [] Angry [] Fearful [] Anxious [] Often cries [] Exhaustion [] Unable to work [] Unable to attend christianity [] Unable to walk/stand [] Unable to read [] Unable to drive [] Unable to eat/drink [] Unable to sleep [] Unable to be with family [] Patient intubated [] Other: Summary Time spent with patient 5 min
--- NOTE | 2025-04-10 11:14 | P.DS_ITS ---
Discharge Providers Date of Admission: 04/07/25 02:40 Date of Discharge: April 10, 2025 Attending Provider at Admission: Kelvin Bedoya MD Attending Provider at Discharge: Sami Magdaleno MD Primary Care Provider: Tisha Funk MD Diagnoses at Discharge Discharge Diagnosis 1. Delirium due to another medical condition: Details from hospital stay: Appears to be due to dehydration cannot exclude UTI 2. Complicated UTI (urinary tract infection): Details from hospital stay: History of urine retention. Chand was placed for enlarged prostate and distended bladder seen on CT scan but postvoid residual yesterday was only 24 cc after voiding trial. Chand was not left in. Patient has history of Chand for 1 year from March 2024 to March 2025. Follow-up with Dr. Ramos the urologist the patient sees in [facility] 3. SHERRON (acute kidney injury): Details from hospital stay: Resolved with hydration. Patient had prerenal azotemia and hypokalemia. Diuretics were stopped. No sign of volume overload in the 4 days that he has been here with IV fluids given 4. Dementia: Details from hospital stay: Mild patient is essentially alert and oriented x 2 and often 3-year. He has not had behavior difficulty 5. Hypertrophic cardiomyopathy: Details from hospital stay: Follows with Dr. Wu. I did not see echocardiogram has been done in our system 6. ICD (implantable cardioverter-defibrillator) in place: Details from hospital stay: Stable no defibrillator firing here 7. Diabetes mellitus type 2 with complications, uncontrolled: Details from hospital stay: Continue home diabetic regimen 8. GERD (gastroesophageal reflux disease): Details from hospital stay: Continue home PPI regimen 9. Encounter for screening involving social determinants of health (SDoH): Details from hospital stay: and son want patient to go to rehab for strengthening as opposed to home health physical therapy. This was reasonable request and so patient is discharged to [place] at this time for rehab 10. Acute encephalopathy: Details from hospital stay: Resolved and attributable to dehydration 11. Diverticulitis of sigmoid colon: Details from hospital stay: Questionable finding on CT scan and abdominal exam entirely benign. Patient received 4 days of antibiotics for this and UTI including Rocephin and metronidazole. Antibiotics have been stopped 12. Urinary retention due to benign prostatic hyperplasia: Details from hospital stay: As above Reason for Visit Reason for Visit: weakness Brief History: Chapito Mijares is a 80 year old male with PMH of DM complicated with neuropathy and uncontrolled blood glucose level with HbA1c of 12% in August 2024, hypertrophic cardiomyopathy s/p pacemaker and following with the cardiology, [facility], came with weakness, acute confusion and headaches. As per the notes and the caregiver, the patient is having memory issues more than many months and this time, the patient was 'completely out of it' with 'his head hanging over' in the morning after the patient had his breakfast. He did not pass out but he was not responding much therefore the called for medical assistance.The reported that the patient's blood pressure was initially low upon EMS arrival, and he has already received 1 liter of IV fluids. The patient has a recent urinary catheterization about 2 to 3 weeks ago. There was no associated diarrhea, abdominal pain, nausea or vomiting, chest pain or chest pressure, or any shortness of breath acutely at that time. The patient has baseline memory issues but never been worked as outpatient for dementia and no medications prescribed yet. The also reported the patient has multiple falls around 3-4 times in 6 months where he has aware that he is falling down, no postictal state, no head trauma, no focal deficit. The reported it is just his gait imbalance that leads to falls. He has uncontrolled diabetes with neuropathy and was scheduled to see [place]. Hospital Course Hospital Course 80-year-old male with hypertrophic obstructive cardiomyopathy he is on chronic diuretics. He came in with prerenal azotemia and dehydration. This improved with fluid boluses. There was concerns about possible sepsis but his parameters, lack of fever suggest that he had UTI and dehydration but not actual sepsis. His UA was markedly positive with greater than 100 white cells 0-4 red cells and 0-2 squamous epithelials with trace bacteria. Leukocyte esterase 2+ but nitrates negative. Culture of the urine grew nothing but superficial reinaldo and low colony counts and the blood cultures were negative. states that his last antibiotic was about a month ago. Patient has history of dementia untreated. states that he sometimes is quite confused here he was mostly oriented. Patient has had recent falls and is unsteady with his walker. He had physical therapy here and family elected for short stint in [facility] facility as opposed to home with home health. CT scan showed possible sigmoid diverticulitis or colitis but patient's exam was not suggestive of colitis as he was not tender at all. He reports having 8-10 bowel movements here but is on stool softeners and Dulcolax. He received 4 days of IV Rocephin and metronidazole but abdominal exam is completely benign so antibiotics will be stopped. Additionally white count normalized after day 1. CT also showed enlarged prostate and distended bladder so Chand was placed but the initial Chand only return 400 cc based on retrospective investigation of the Chand insertion documentation. I am not entirely clear that it was not a more. I elected to remove the Chand and check postvoid residual for 6 hours later which was only 24 cc. The patient has had a Chand for a year from March 2024 to March 2025 and I have elected to not put the Chand back. I did increase his Flomax to 0.8 mg and started Avodart. Notably the patient's PSA was quite low at 0.014 which makes the utility of Avodart less likely but I have continued anyways. Follow-up with urology. Patient sees Dr. Ramos in [place] Physical Exam Narrative: General well-developed well-nourished male in no acute cardiopulmonary stress he is alert and oriented to person [facility] but could not tell me the name of the hospital. He knew that it was April and 2024 but thought it was . He knew he was in [facility] and reports his address to be [address] [place] [address] which is correct. CV regular rate and rhythm Lungs clear to auscultation bilaterally Abdomen positive bowel tones soft he has no tenderness or rebound tenderness at all. Back no flank pain Calves no tenderness cords pretibial edema Skin warm and dry Patient is able to ambulate with standby assist and walker his gait is mildly ataxic Urinary Catheter Management: Chand: Cath Placed During This Visit: yes Reason for Continuing Indwelling Catheter: Acute Urinary Retention or Obstruction Urinary Catheter Date of Insertion: 04/07/25 Urinary Catheter Time of Insertion: 03:35 Discharge Data Studies Completed and Pending Completed Studies During Hospitalization Category Date Time Status CT head wo con* [id number] Stat Cat Scan 04/07/25 01:[address] kidney stone [id number] Stat Cat Scan 04/07/25 02:38 Completed XR chest 1V portable [id number] Stat Exams 04/07/25 01:17 Completed Pending at discharge Category Date Time Status Blood Culture Stat Lab 04/07/25 01:46 Results SARS Covid-2 Antigen Routine Lab 04/10/25 10:56 Uncollected Vitamin B1 (Thiamine),Blood Routine Lab 04/07/25 06:16 Received Radiology Impressions Chest X-Ray 04/07/25 01:17 IMPRESSION: No acute findings. Head CT 04/07/25 01:17 IMPRESSION: 1. No acute intracranial hemorrhage. If symptoms persist consider MRI, as indicated. 2. Moderate to severe age-related changes. A few other chronic/incidental findings above. 3. 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 4. There is mild nonspecific air about the cavernous sinuses, likely incidental. Often seen. 5. A few other chronic/incidental findings above. Abdomen/Pelvis CT 04/07/25 02:38 IMPRESSION: 1. Mild sigmoid diverticulitis/colitis suspected with no evidence of abscess or free air. 2. Large prostate with large bladder. No overt hydronephrosis. 3. No small bowel obstruction, abscess or free air. 4. Several chronic/incidental findings above. Laboratory Results WBC 8.78 10^3/uL (3.29-11.43) 04/08/25 01:40 RBC 4.89 10^6/uL (3.85-5.65) 04/08/25 01:40 Hgb 13.00 g/dL (11.27-16.99) 04/08/25 01:40 Hct 40.5 % (37-53) 04/08/25 01:40 MCV 82.8 fl (82-101) 04/08/25 01:40 MCH 26.6 pg (27-33) L 04/08/25 01:40 MCHC 32.1 g/dL (30-55) 04/08/25 01:40 RDW 14.2 % (12.1-15.1) 04/08/25 01:40 Plt Count 216 10^3/cmm (157-399) D 04/08/25 01:40 MPV 10.6 fL (7.4-10.4) H 04/08/25 01:40 Neut % (Auto) 59.1 % 04/08/25 01:40 Lymph % (Auto) 22.0 % 04/08/25 01:40 [place] % (Auto) 11.7 % 04/08/25 01:40 Eos % (Auto) 5.4 % 04/08/25 01:40 Baso % (Auto) 1.5 % 04/08/25 01:40 Neut # (Auto) 5.19 10^3/uL (1.8-7.7) 04/08/25 01:40 Lymph # (Auto) 1.9 10^3/uL (0.8-4.8) 04/08/25 01:40 [place] # (Auto) 1.0 10^3/uL (0.2-0.9) H 04/08/25 01:40 Eos # (Auto) 0.5 10^3/uL (0.0-0.8) 04/08/25 01:40 Baso # (Auto) 0.1 10^3/uL (0.0-0.1) 04/08/25 01:40 Nucleated RBC % (auto) 0 % 04/08/25 01:40 Nucleated RBCs # 0.0 /100WBC 04/08/25 01:40 Sodium 138 mmol/L (136-145) 04/08/25 01:40 Potassium 3.7 mmol/L (3.5-5.1) 04/08/25 01:40 Chloride 104 mmol/L (98-107) 04/08/25 01:40 Carbon Dioxide 21 mmol/L (22-29) L 04/08/25 01:40 Anion Gap 16.7 (5-19) 04/08/25 01:40 BUN 15 mg/dL (8-23) 04/08/25 01:40 Creatinine 1.0 mg/dL (0.7-1.2) 04/08/25 01:40 GFR Calculation Not Reportable 04/08/25 01:40 Glucose 168 mg/dL (65-115) H 04/08/25 01:40 POC Glucose 296 mg/dL (70-110) H 04/10/25 10:28 Calculated Osmolality 291 mOsm/kg (285-295) 04/08/25 01:40 Lactic Acid 3.5 mmol/L (0.5-2.2) H 04/07/25 00:20 Lactic Acid (Sepsis) 2.1 mmol/L (0.5-2.2) 04/07/25 03:03 Calcium 8.6 mg/dL (8.5-10.5) 04/08/25 01:40 Phosphorus 2.9 mg/dL (2.5-4.5) 04/07/25 00:20 Magnesium 1.8 mg/dL (1.7-2.3) 04/07/25 00:20 Total Bilirubin 0.3 mg/dL (0.15-1.2) 04/08/25 01:40 AST 18 U/L (0-40) 04/08/25 01:40 ALT 13 U/L (0-41) 04/08/25 01:40 Alkaline Phosphatase 85 U/L (40-130) 04/08/25 01:40 Troponin T Baseline 80 ng/L (0-15) H 04/07/25 00:20 Troponin T 120 Minute 53.7 ng/L (0-15) H 04/07/25 02:12 Delta Troponin T -26.3 ABS# (0-10) L 04/07/25 02:12 Troponin T Hi Sens 6Hr 51.02 ng/L (0-15) H 04/07/25 06:16 Troponin T Hi Sens 6Hr Delta -28.98 ng/L (0-12) L 04/07/25 06:16 C-Reactive Protein 3.0 mg/L (0.0-4.9) 04/07/25 00:20 Total Protein 6.3 g/dL (6.6-8.7) L 04/08/25 01:40 Albumin 3.5 g/dL (3.5-5.2) 04/08/25 01:40 Globulin 2.8 g/dL (1.3-4.6) 04/08/25 01:40 Prostate Specific Ag < 0.014 ng/mL (0-4) 04/08/25 01:40 Vitamin B12 > 2000 pg/mL (232-1245) H 04/07/25 06:16 Urine Color Yellow (Yellow) 04/07/25 01:59 Urine Appearance Cloudy (CLEAR) A 04/07/25 01:59 Urine pH 6.0 (5-7) 04/07/25 01:59 Ur Specific [place] 1.015 (1.005-1.030) 04/07/25 01:59 Urine Protein Trace (Negative) A 04/07/25 01:59 Urine Glucose (UA) 3+ (Normal) H 04/07/25 01:59 Urine Ketones Negative (Negative) 04/07/25 01:59 Urine Blood Trace (Negative) A 04/07/25 01:59 Urine Nitrate Negative (Negative) 04/07/25 01:59 Urine Bilirubin Negative (Negative) 04/07/25 01:59 Urine Urobilinogen 0.2 mg/dL (Negative) 04/07/25 01:59 Ur Leukocyte Esterase 2+ (Negative) A 04/07/25 01:59 Urine RBC 0-4 /hpf (0-2) H 04/07/25 01:59 Urine WBC >100 /hpf (0-5) H 04/07/25 01:59 Ur Squamous Epith Cells 0-2 /hpf (0-5) 04/07/25 01:59 Ur Transition Epith Cell 5-10 /hpf 04/07/25 01:59 Amorphous Sediment Not Reportable 04/07/25 01:59 Urine Bacteria Trace /hpf (NONE) 04/07/25 01:59 Urine Yeast Trace /hpf 04/07/25 01:59 Vitals Last Vital Signs Temp 97.7 F 04/10/25 07:55 Pulse 62 04/10/25 07:55 Resp 18 04/10/25 07:55 BP 171/77 04/10/25 07:55 Pulse Ox 95 04/10/25 07:55 O2 Del Method Room Air 04/10/25 07:55 Discharge Plan Discharge Patient Disposition: Xfer SNF Condition: Stable Prescriptions: New tamsulosin 0.4 mg Capsule 0.8 mg PO DAILY Qty: 60 0RF dutasteride 0.5 mg Capsule 0.5 mg PO DAILY Qty: 30 0RF Continued aspirin 81 mg tablet,delayed release (DR/EC) 81 mg PO DAILY Ultra CoQ10 75 mg capsule 300 mg PO DAILY mecobalamin (vitamin B12) 5,000 mcg tablet,disintegrating 5,000 mcg PO DAILY (DME) diabetic shoes See Rx Instructions .Route .MEDSUPPLY Qty: 1 0RF Rx Instructions: As directed (DME) custom heat molded inserts See Rx Instructions .Route .MEDSUPPLY Qty: 1 0RF Rx Instructions: As directed (DME) diabetic shoes with 3 custom inserts See Rx Instructions .Route .MEDSUPPLY Qty: 1 0RF Rx Instructions: As directed (DME) FreeStyle Robert 3 Sensor Device See Rx Instructions .Route Qty: 2 5RF Rx Instructions: As directed Novolin 70-30 FlexPen U-100 100 unit/mL (70-30) insulin pen 50 unit SUBCUT DAILY 30 Days Qty: 15 4RF Rx Instructions: take 50 units in pm and 50 units in am - Pt. eats late and does not always take the morning dose (DME) diabetic shoes with 3 inserts See Rx Instructions .Route .MEDSUPPLY Qty: 1 0RF Rx Instructions: As directed to the shoe guys (DME) insulin syringe-needle U-100 [BD Insulin Syringe Safety-Rey] 1 mL 29 gauge x 1/2 syringe See Rx Instructions .Route Qty: 500 0RF Rx Instructions: Inject insulin, Twice, daily. disopyramide phosphate 150 mg capsule See Rx Instructions .ROUTE .COMPLEX Qty: 120 3RF Dose Instruction: TAKE 1 CAPSULE BY MOUTH TWICE DAILY SPACE DOSES OUT EVENLY DURING WAKING HOURS Rx Instructions: TAKE 1 CAPSULE BY MOUTH TWICE DAILY SPACE DOSES OUT EVENLY DURING WAKING HOURS gabapentin 300 mg capsule See Rx Instructions .ROUTE .COMPLEX Qty: 180 2RF Dose Instruction: Take 1 capsule by mouth twice daily Rx Instructions: Take 1 capsule by mouth twice daily topiramate 50 mg tablet 50 mg PO DAILY Qty: 90 2RF clopidogrel 75 mg tablet See Rx Instructions .ROUTE .COMPLEX Qty: 90 0RF Dose Instruction: Take 1 tablet by mouth once daily Rx Instructions: Take 1 tablet by mouth once daily metoprolol succinate 50 mg tablet extended release 24 hr See Rx Instructions .ROUTE .COMPLEX Qty: 90 0RF Dose Instruction: Take 1 tablet by mouth once daily Rx Instructions: Take 1 tablet by mouth once daily atorvastatin 20 mg tablet See Rx Instructions .ROUTE .COMPLEX Qty: 90 0RF Dose Instruction: Take 1 tablet by mouth once daily Rx Instructions: Take 1 tablet by mouth once daily pantoprazole 20 mg tablet,delayed release (DR/EC) See Rx Instructions .ROUTE .COMPLEX Qty: 90 0RF Dose Instruction: Take 1 tablet by mouth once daily Rx Instructions: Take 1 tablet by mouth once daily fluoxetine 20 mg capsule See Rx Instructions .ROUTE .COMPLEX Qty: 90 0RF Dose Instruction: Take 1 capsule by mouth once daily Rx Instructions: Take 1 capsule by mouth once daily Discontinued potassium chloride 8 mEq capsule, extended release 8 meq PO DAILY Qty: 30 0RF furosemide [Lasix] 20 mg tablet 20 mg PO DAILY Qty: 30 0RF tamsulosin [Flomax] 0.4 mg capsule 0.4 mg PO DAILY Qty: 15 0RF Discharge Order = DC NOW: Discharge Order (Routine); Ordered 04/10/25 Ordered By: Sami Magdaleno Referrals: [facility] [Outside] - 4-7 days Eugenio Ramos MD [Referring, Urology] - 2 weeks Referral Note: We have notified your physician's clinic of the need for a follow-up appointment to be scheduled. If you have not heard from them within the next 2 business days, please call them directly. SENT REFERRAL Tisha Funk MD [Primary Care Provider, Family Practice] - 2 weeks Discharge Diet: Diabetic Discharge Activity: Increase activity as tolerated Patient Instructions: Tamsulosin (By mouth), Dutasteride (By mouth), Urinary Retention in Men (GEN), Enlarged Prostate (BPH) (GEN), Opioid Safety, Patient Portal & Clemencia Instructions Activity Restrictions/Additional Instructions: Follow-up with your primary care provider regarding concern of dementia Follow-up with urology regarding urinary retention. There were concerns on admission that you were retaining urine but after brief few days with Chand catheter here we remove the Chand and postvoid residual was only 24 cc. I started you on Avodart for enlarged prostate as seen on the CT scan but notably your PSA was quite low which is inconsistent with enlarged prostate. This should be addressed with your urologist We have discharged you to therapy and anticipate that after couple weeks you can return home Follow 1600-calorie ADA diet Discharge Attestations Time Spent in Discharge Care*: greater than 30 min Time Spent in Smoking Cessation: Patient is not a smoker Quality Metrics Clinical Quality Measures [ No reported AMI, CVA or VTE this stay] Coding Level of Care Code 77556 Diagnoses Delirium due to another medical condition F05 Complicated UTI (urinary tract infection) N39.0 SHERRON (acute kidney injury) N17.9 Dementia F03.90 Hypertrophic cardiomyopathy I42.2 ICD (implantable cardioverter-defibrillator) in place Z95.810 Diabetes mellitus type 2 with complications, uncontrolled GERD (gastroesophageal reflux disease) K21.9 Encounter for screening involving social determinants of health (SDoH) Z13.9 Acute encephalopathy G93.40 Diverticulitis of sigmoid colon K57.32 Urinary retention due to benign prostatic hyperplasia N40.1; R33.8 Time Spent (min) 40
[2025-04-10 11:15] VITALS: BP 119/60; PULSE 62; RESP 16; TEMP 36.6; O2SAT 92
[2025-04-10 16:07] LABS: Cholesterol 153 mg/dL (0-200); HDL Cholesterol 31 mg/dL (60-100); Triglycerides 425 mg/dL (0-150)
[2025-04-10 16:16] LABS: Estmated Average Glucose 260; Hemoglobin A1C 10.7 % (4.0-6.0)
[2025-04-10 16:57] LABS: SARS Covid-2 Antigen Negative (Negative)
[2025-04-13 13:33] LABS: Vitamin B1 (Thiamine),Blood 64 nmol/L (78-185)
== END 2025-04-10 13:55 | disposition skilled nursing facility (03) | DRG 690 ==
LOC: ER 02:39 → MEDSURG 03:04
PROVIDERS: Family Medicine; Internal Medicine; Admitting Provider Student in an Organized Health Care Education/Training Program; Emergency Provider Emergency Medicine; PCP Family Medicine; Visit Provider Internal Medicine
DX: N39.0 Urinary tract infection, site not specified (principal); N17.9 Acute kidney failure, unspecified; F05 Delirium due to known physiological condition; I42.2 Other hypertrophic cardiomyopathy; K57.32 Diverticulitis of large intestine without perforation or abscess without bleeding; G93.40 Encephalopathy, unspecified; F03.90 Unspecified dementia, unspecified severity, without behavioral disturbance, psychotic disturbance, mood disturbance, and anxiety; Z95.810 Presence of automatic (implantable) cardiac defibrillator; K21.9 Gastro-esophageal reflux disease without esophagitis; E87.6 Hypokalemia; Z83.3 Family history of diabetes mellitus; Z81.8 Family history of other mental and behavioral disorders; Z79.4 Long term (current) use of insulin; E11.40 Type 2 diabetes mellitus with diabetic neuropathy, unspecified; E78.2 Mixed hyperlipidemia; N40.1 Benign prostatic hyperplasia with lower urinary tract symptoms; R33.8 Other retention of urine; F32.5 Major depressive disorder, single episode, in full remission; Z79.02 Long term (current) use of antithrombotics/antiplatelets; Z79.82 Long term (current) use of aspirin
CPT/HCPCS: 11721; 36415; 36416; 51702; 70450; 71045; 74176; 80053; 80061; 81001; 82607; 82962; 83036; 83605; 83721; 83735; 84100; 84153; 84425; 84484; 85025; 86140; 87040; 87086; 87426; 93005; 96365; 96372; 96375; 97116; 97161; 97167; 97530; 97535; 99285; J0696; J1644; J1815; J1956; J2470; J3490; J7030; J7040; J7120; J9999

== ENCOUNTER 2025-04-22 12:44 | Outpatient (CLI) | payer MEDICARE, OTHER, SELFPAY ==
--- NOTE | 2025-04-22 12:45 | USCV_ITS ---
Chapito Mijares Age: 80 Gender: M : 1945 Exam Date: 04/22/2025 13:01 Ordering Phys: Jacoby Wu MD ([email or web address]) Technologist: NAVDEEP [place] [facility] [place]: SoB BP: 128 / 70 HR: 58 Rhythm: Sinus Technical Quality: Adequate MEASUREMENTS (Male / Female) Normal Values 2D ECHO LV Diastolic Diameter PLAX 4.7 cm 4.2 - 5.9 / 3.9 - 5.3 cm IVS Diastolic Thickness 1.1 cm 0.6 - 1.0 / 0.6 - 0.9 cm IVS Systolic Thickness 1.6 cm LVPW Diastolic Thickness 1.8 cm 0.6 - 1.0 / 0.6 - 0.9 cm LVPW Systolic Thickness 1.9 cm LVOT Diameter 2.0 cm LV Ejection Fraction 2D Teich 60.7 % LV Ejection Fraction MOD 4C 63.3 % LV Ejection Fraction MOD 2C 52.7 % LV Ejection Fraction 2C AL 58.4 % LA Diameter 3.6 cm RA Systolic Volume 4C AL 30.3 ml RA Systolic Volume 4C MOD 29.7 ml LA Sys Volume AL 37.8 cm cubed LA Sys Volume Index AL 18.8 cm cubed/m squared Aorta at Sinotubular Diameter 2.9 cm IVC Diameter 1.7 cm M-MODE LA Ao Ratio MM 1.3 AV Cusp Separation MM 1.4 cm DOPPLER AV Peak Velocity 106.0 cm/s LVOT Peak Velocity 85.0 cm/s AV Area Cont Eq vti 2.7 cm squared AV Area Cont Eq pk 2.4 cm squared MV Peak Velocity 107.0 cm/s MV Area PHT 3.9 cm squared Mitral E to A Ratio 0.6 TR Peak Velocity 101.0 cm/s TR Peak Gradient 4.1 mmHg TV Peak E Velocity 72.0 cm/s PV Peak Velocity 91.0 cm/s FINDINGS Left Ventricle Normal left ventricular size and systolic function, EF 58%. Mild left ventricular hypertrophy. No regional wall motion abnormalities. Grade I/IV diastolic dysfunction (abnormal relaxation filling pattern), normal to mildly elevated filling pressures. Right Ventricle Normal right ventricular size and systolic function. Right Atrium Normal right atrial size. Left Atrium Normal left atrial size. IA Septum Normal appearance of the interatrial septum. Mitral Valve Mild mitral valve regurgitation. Aortic Valve Thickened aortic valve. Tricuspid Valve No gross abnormalities noted Pulmonic Valve No gross abnormalities noted Pericardium No pericardial effusion. Aorta Normal aortic annulus size. IVC Normal inferior vena cava. CONCLUSIONS Normal left ventricular size and systolic function, EF 58%. Mild left ventricular hypertrophy. No regional wall motion abnormalities. Grade I/IV diastolic dysfunction (abnormal relaxation filling pattern), normal to mildly elevated filling pressures. Mild mitral valve regurgitation. Thickened aortic valve. There is no pericardial effusion. There are no intracardiac masses. No similar previous studies are available for comparison Dr Jacoby Wu MD FACC (Electronically Signed) Final Date: 27 April 2025 12:28 S
== END 2025-04-22 12:45 | disposition home or self-care (01) ==
LOC: RAD 12:45
PROVIDERS: PCP Family Medicine; Visit Provider Internal Medicine Cardiovascular Disease
DX: R06.09 Other forms of dyspnea (principal); I51.7 Cardiomegaly; I34.0 Nonrheumatic mitral (valve) insufficiency; I35.8 Other nonrheumatic aortic valve disorders
CPT/HCPCS: 93306

== ENCOUNTER → 2025-06-04 11:54 | Outpatient (BNVA) | payer MEDICARE, OTHER, SELFPAY | PROVIDERS: PCP Family Medicine; Referring Provider Family Medicine; Visit Provider Specialist | DX: G31.83 Neurocognitive disorder with Lewy bodies (principal); F02.C2 Dementia in other diseases classified elsewhere, severe, with psychotic disturbance; Z95.810 Presence of automatic (implantable) cardiac defibrillator; I42.2 Other hypertrophic cardiomyopathy | CPT/HCPCS: 99205 ==

== ENCOUNTER 2025-06-29 14:33 | Emergency (ER) | payer MEDICARE, OTHER, SELFPAY ==
--- OUTSIDE RECORDS SUMMARY | 2025-01-14 11:00 | XMS_ITS ---
Author Organization [facility] Address [address] [place] [address] Care Team Providers Care Customer Service Receptionist Name Role Phone Tisha Funk Primary Care Provider RAHEEL Yanes Unavailable [phone] REASON FOR VISIT 4 wk cysto/beltrán chg Encounters Encounter Location Date Provider Diagnosis [facility] [address] [place] [address] 01/14/2025 RAHEEL DEUTSCH Phimosis of penis N4 7.1 ; Preoperative examination Z01.818 ; Urinary retention R33.9 ; Uncircumcised male Z78.9 ; Beltrán catheter in place Z96.0 ; Type 2 diabetes mellitus with complication E11.8 ; History of CVA (cerebrovascular accident) without residual deficits Z86.73 ; Recent urinary tract infection Z87.440 and Cloudy urine R82.90 Assessments Encounter Date Diagnosis (ICD Code) Assessment Notes Treatment Notes Treatment Clinical Notes Section Notes 01/14/2025 Phimosis of penis (ICD-10 - N47.1) 01/14/2025 Preoperative examination (ICD-10 - Z01.818) 01/14/2025 Urinary retention (ICD-10 - R33.9) 01/14/2025 Uncircumcised male (ICD-10 - Z78.9) 01/14/[address] (ICD-10 - Z96.0) 01/14/2025 Type 2 diabetes mellitus with complication (ICD-10 - E11.8) 01/14/2025 History of CVA (cerebrovascular accident) without residual deficits (ICD-10 - Z86.73) 01/14/2025 Recent urinary tract infection (ICD-10 - Z87.440) 01/14/2025 Cloudy urine (ICD-10 - R82.90) Plan Of Treatment Next Appt Details Provider Name:ADRIANA GUSMAN, 0 08/14/2025 11:00:00 AM, [address] [place], [address], Progress Notes * Chapito MURILLO EDOB:1944 (80 yo M)Acc No.[id number]:01/14/2025 Patient: Chapito Fried Provider: Justin DEUTSCH MD :1945 A ge:80 Y S ex:Male Date:01/14/2025 Address:[address] [place], [place] [id number] Pcp:Tisha Funk Subjective: * Chief Complaints: * 4 wk cysto/beltrán chg * HPI: M igrated HPI: Mr. Murillo is an 79 year old male patient referred by [facility] ER for acute urinary retention. He is accompanied by his . He presented to ER on 03/26/24 with c/o decreased urine output. He notes weak stream, hesitancy and nocturia for several weeks . WBC normal, creatinine of 1.2. Beltrán catheter placed. He was started on Flomax. PMH includes T2DM, HLD, GERD and cardiomyopathy. He has a pacemaker in place. He has history of stroke about 4 years ago, denies any residual deficits. He states his diabetes isn't great . Thinks his A1C was around 11. He is on insulin, denies any peripheral neuropathy. Patient states prior to ER visit, he was having weak stream, urgency with UUI, nocturia x 3-5 for 2-3 months. Denies history of UTI or prostatitis. No history of kidney stones or gross hematuria. No family history of malignancy. Reports normal PSA with PCP in the past. He remembers seeing a urologist many years ago in [place], but unsure why. No history of smoking. He was given Rx for Flomax at ER, but has not been able to oyster picker and start Rx yet. Instructed patient to oyster picker Rx for Flomax, he was also started on Finasteride for max med management of BPH and RTC in 10 days for VT. He went to ER a few days ago for a clogged beltrán and bladder spasms was started on an ABX for probable UTI. No longer with bladder spasms. He was seen 04/12 and failed VT. Nurse was only able to get a 14F in, which was still very difficult due to severe phimosis. Pt was scheduled 7months ago for cysto/possible circ/possible dorsal slit and this was cancelled due to pt's A1c being too high. Here today for further evaluation of the anatomy with C ystoscopy and 4 week SP tube change. Assessment: * Assessment: 1. P reoperative examination - Z01.818 (Primary) 2 . P himosis of penis - N47.1 3 . U rinary retention - R33.9 4 . U ncircumcised male - Z78.9 5 . F oley catheter in place - Z96.0 6 . T ype 2 diabetes mellitus with complication - E11.8 7 . H istory of CVA (cerebrovascular accident) without residual deficits - Z86.73 8 . R ecent urinary tract infection - Z87.440 9 . C loudy urine - R82.90 * Electronic signature of AUST IN MD GET on 06/29/2025 at 02:37 PM HEALTH SANITARIAN Sign off status: Pending * Provider: Justin DEUTSCH MD Date: 0 01/14/2025 Generated for Terrie reyna/Rafa/eTransmitting on: 1 08/30/2024 02:37 PM HEALTH SANITARIAN
--- OUTSIDE RECORDS SUMMARY | 2025-01-23 04:30 | XMS_ITS ---
Author Organization [facility] Address [address] [facility] [address] Care Team Providers Care Titrator Name Role Phone Tisha Funk Primary Care Provider Unavailab RAHEEL Davidson Unavailable [phone] ADRIANA GUSMAN Unavailable [phone] REASON FOR VISIT beltrán change Encounters Encounter Location Date Provider Diagnosis [facility] [address] [place] [address] 01/23/2025 ADRIANA GUSMAN Plan Of Treatment Next Appt Details Provider Name:ADRIANA Ant GUSMAN, 0 08/14/2025 11:00:00 AM, [address] [place], [address], Progress Notes * Chapito MURILLO EDOB:1944 (80 yo M)Acc No.[id number]:01/23/2025 Progress Note Patient: Chapito Fried Provider: Justin Gusman APRN-DIRECTOR OCCUPATIONAL :1945 A ge:80 Y S ex:Male Date:01/23/2025 Address:[address] [place], [place] Pcp:Tisha Funk Subjective: * Chief Complaints: * F oley change Billing Information: * Procedure Codes: * Electronic signature of ADRIANA GUSMAN APRN on 06/29/2025 at 02:36 PM STRATEGY SPECIALIST Sign off status: Pending * Provider: CARLTON Nation Date: 0 01/23/2025 Generated for Terrie reyna/rBidget on: 1 08/30/2024 02:36 PM STRATEGY SPECIALIST
--- OUTSIDE RECORDS SUMMARY | 2025-03-18 04:45 | XMS_ITS ---
Author Organization [facility] Address [address] [place] [address] Care Team Providers Care Dye Tub Tender Name Role Phone Tisha Funk Primary Care Provider Alexsandra Thomas Unavailable [phone] REASON FOR VISIT [id number] 3 mo f/u - UTI Encounters Encounter Location Date Provider Diagnosis [facility] [address] [place] [address], [place] [address] 03/18/2025 Alexsandra Marks Plan Of Treatment No Information Progress Notes * LIDIABIENVENIDO LANZA EDOB:1944 (80 yo M)Acc No.[id number]:03/18/2025 Progress Notes Patient: BIENVENIDO DE Provider: Tamra Marks APRN :1945 A ge:80 Y S ex:Male Date:03/18/2025 Address:[address] [place], [place] [id number] Pcp:Tisha Funk Subjective: * Chief Complaints: * 6 [id number] 3 mo f/u - UTI Care Plan Details* * Electronic signature of Atul Marks APRN on 06/29/2025 at 02:37 PM VICE PRESIDENT OF OPERATIONS Sign off status: Pending * Provider: Tamra Marks APRN Date: 0 03/18/2025 Generated for Printi ng/Faxing/eTransmitting on: 1 08/30/2024 02:37 PM VICE PRESIDENT OF OPERATIONS
[2025-06-29 14:14] VITALS: BP 143/94; PULSE 80; RESP 18; TEMP 36.6; O2SAT 94; BMI 26.2
--- NOTE | 2025-06-29 14:21 | CTR_ITS ---
PROCEDURE INFORMATION: Exam: CT Cervical Spine Without Contrast Exam date and time: 06/29/2025 2:27 PM Age: 80 years old Clinical indication: Injury or trauma; Fall; Blunt trauma; Additional info: Fall, hit head. No history of surgery is provided. TECHNIQUE: Imaging protocol: Computed tomography of the cervical spine without contrast. 466image(s) are provided. Radiation optimization: All CT scans at this facility use at least one of these dose optimization techniques: automated exposure control; mA and/or kV adjustment per patient size (includes targeted exams where dose is matched to clinical indication); or iterative reconstruction. COMPARISON: CT head wo con* [id number] 04/07/2025 1:30 AM. No previous cervical spine is currently available. RADIATION DOSE METRICS: Total DLP (mGy-cm): 238.1 FINDINGS: Bones: There is some multilevel degeneration present with spurring and disc space narrowing along with some areas of vacuum phenomenon contributing to some osseous foraminal narrowing. There is some well corticated chronic calcific appearance of the posterior spinous process margin.There is facet, uncovertebral hypertrophy demonstrated. There are some areas of partial facet fusion for example superiorly on the left. No displaced fracture or dislocation is appreciated. Discs/Spinal canal/Neural foramina: No hyperdense spinal canal fluid is appreciated. Lungs: No lobar consolidation is appreciated.No pneumothorax is appreciated. There appears to be some cardiac leads, hardware present. There is some subsegmental atelectasis versus post inflammatory scarring demonstrated. Esophagus: There is some esophageal air overall present. Consider if there is history of reflux or dysmotility. Soft tissues: No radiopaque foreign body or subcutaneous emphysema is appreciated.No subcutaneous fluid collections are appreciated.No abnormal prevertebral soft tissue thickening is appreciated.Atherosclerotic vascular changes are demonstrated. There is some motion artifact present. CT/CT cervical spin wo con* [id number] IMPRESSION: There are multilevel degenerative changes present of the cervical spine with no fracture or dislocation appreciated.
--- NOTE | 2025-06-29 14:21 | CTR_ITS ---
PROCEDURE INFORMATION: Exam: CT Head Without Contrast Exam date and time: 06/29/2025 2:27 PM Age: 80 years old Clinical indication: Injury or trauma; Fall; Laceration; Without loss of consciousness; Without residual foreign body; Eye; Right; Additional info: Fall, hit head, on plavix. No history of recent surgery is provided. TECHNIQUE: Imaging protocol: Computed tomography of the head without contrast. 312image(s) are provided. Radiation optimization: All CT scans at this facility use at least one of these dose optimization techniques: automated exposure control; mA and/or kV adjustment per patient size (includes targeted exams where dose is matched to clinical indication); or iterative reconstruction. Other technique: Axial images are available with sagittal and coronal reconstruction views. Automated dose exposure control is utilized. The DLP is 238.1. COMPARISON: CT head wo con* [id number] 04/07/2025 1:[address] cervical spine same day. RADIATION DOSE METRICS: Total DLP (mGy-cm): 1120.8 FINDINGS: Brain: There are moderate cerebral atrophic changes overall.There are multifocal periventricular, white matter changes present.There are central lacunar changes demonstrated some of which appear overall similar.No interval mass effect or layering hemorrhage is appreciated. Green, white matter differentiation appears maintained. There is some encephalomalacia present for example including of the left cerebellar hemisphere. There is however some interval lacunar asymmetry for example about the right basal ganglia, external capsular periventricular margin. Cerebral ventricles: There is some slight compensatory ventricular enlargement similar overall. Paranasal sinuses: There are some interventional related changes of the paranasal sinuses along with some patchy ethmoidal air cell mucosal thickening and trace frothy fluid, slight thickening of the left sphenoid sinus. Mastoid air cells: The mastoid air cells appear well-aerated overall. Orbital cavities: Symmetric appearance of the orbital soft tissues is demonstrated. Bones: No interval displaced cranial fracture or dislocation is appreciated. Soft tissues: No radiopaque foreign body or subcutaneous emphysema is appreciated. There is some slight developmental lipomatous prominence of the lower right posterior soft tissues similar. There appears to be some prominence of the anterior soft tissues including of the right periorbital space. No retro conal fluid collections or stranding changes are appreciated. Vasculature: There is slight increased density of the vessels which could be seen with processes including atherosclerotic change as well as slow flow.There is some motion artifact present. No other significant interval changes are appreciated. CT/CT head wo con* [id number] IMPRESSION: 1. No interval layering hemorrhage or cranial fracture, intracranial posttraumatic changes are appreciated with the anterior periorbital right soft tissue swelling correspondingly. 2. There are multifocal areas of white matter, lacunar and encephalomalacia change which appear relatively similar overall. There does appear to be some interval asymmetry for example about the right basal ganglia, external capsular periventricular margin. This could represent chronicity although with the appearance in the interval, some subacute underlying change can not entirely be excluded. If there are associated clinical, neurologic findings then consider MRI.
--- NOTE | 2025-06-29 14:23 | W.ED.WOUNDLC ---
HPI - Wound/Laceration General: Chief Complaint: Wound/Laceration Stated Complaint: right eyebrow lac s/p fall Source: patient and old records reviewed Mode of arrival: EMS Limitations: no limitations History of Present Illness: Patient is an 80-year-old male with past medical history of dementia and diabetes presenting to the emergency department by ambulance for a fall at home. He reportedly fell out of bed, and struck his right eye, as he arrives with superficial, right eyebrow laceration with no active bleeding. He was on the ground for a couple of hours, tells me he was unable to get up and states that he lives with people but did not think to holler at them for help. His only complaint now is a mild headache, he is on Plavix. He denies any visual changes, focal neurological deficit, he tells me he has been ambulatory since the fall happened. He had no chest pain, shortness of breath, lightheadedness, dizziness, or other symptoms to report preceding the fall and tells me this was an accident while getting out of bed. Vitals are stable at this time, overall nontoxic-appearing. Onset (ago): hour(s) Location: face Place: home Context: accidental (rolled out of bed) Related Data Home Medications ?Medication ?Instructions ?Recorded ?Confirmed aspirin 81 mg tablet,delayed 81 mg PO DAILY 05/20/22 06/29/25 release coenzyme Q10 75 mg capsule (Ultra 300 mg PO DAILY 05/20/22 06/29/25 CoQ10) mecobalamin (vitamin B12) 5,000 5,000 mcg PO DAILY 05/20/22 06/29/25 mcg disintegrating tablet atorvastatin 20 mg tablet 20 mg PO DAILY 06/29/25 06/29/25 clopidogrel 75 mg tablet 75 mg PO DAILY 06/29/25 06/29/25 finasteride 5 mg tablet 5 mg PO DAILY 06/29/25 06/29/25 fluoxetine 20 mg capsule 20 mg PO DAILY 06/29/25 06/29/25 gabapentin 300 mg capsule 300 mg PO BID 06/29/25 06/29/25 metoprolol succinate 50 mg 50 mg PO DAILY 06/29/25 06/29/25 tablet,extended release 24 hr pantoprazole 20 mg tablet,delayed 20 mg PO DAILY 06/29/25 06/29/25 release quetiapine 50 mg tablet 50 - 100 mg PO Q4H PRN 06/29/25 06/29/25 hallucinations tamsulosin 0.4 mg capsule 0.4 mg PO BID 06/29/25 06/29/25 Previous Rx's ?Medication ?Instructions ?Recorded custom heat molded inserts #1 ea 06/14/22 diabetic shoes #1 ea 06/14/22 insulin syringe-needle U-100 1 mL #500 ea 08/19/22 29 gauge x 1/2 (BD Insulin Syringe Safety-Rey) diabetic shoes with 3 custom #1 ea 08/23/22 inserts disopyramide phosphate 150 mg See Rx Instructions .Route 01/10/24 capsule .COMPLEX #120 caps diabetic shoes with 3 inserts #1 ea 11/08/24 insulin NPH-regular 70-30 U-100 55 unit (0.55 mL) SUBCUT BID 30 05/22/25 insulin 100 unit/mL subcutaneous days #33 mL pen (Novolin 70-30 FlexPen U-100 Insulin) blood-glucose sensor (FreeStyle #2 ea 05/23/25 Robert 3 Sensor device) topiramate 50 mg tablet 50 mg PO DAILY #90 tabs 06/02/25 galantamine 4 mg tablet 4 mg PO BID 90 days #180 tabs 06/04/25 furosemide 20 mg tablet (Lasix) 20 mg PO DAILY #30 tabs 06/09/25 potassium chloride 8 mEq 8 meq PO DAILY #30 caps 06/09/25 capsule,extended release Allergies Allergy/AdvReac Type Severity Reaction Status Date / Time amoxicillin Allergy ALGY-Rash Verified 06/13/25 12:31 Penicillins Allergy rash Verified 06/13/25 12:31 [facility] PFSH: Medical History Urinary retention due to benign prostatic hyperplasia Diabetic neuropathy Diabetes mellitus type 2 with complications, uncontrolled Mixed hyperlipidemia Depression, major, in partial remission GERD (gastroesophageal reflux disease) Hypertrophic cardiomyopathy ICD (implantable cardioverter-defibrillator) in place Pacemaker/ICD - Medtronic AAIR-> DDDR lower rate 60 bpm Pacemaker Surgical History History of sinus surgery Status post excision of lipoma right axilla Family History Father Diabetes Hypertension CAD (coronary artery disease) Mother Diabetes Stroke Grandfather Dementia Son Diabetes Family/Other Lung disease Denies family history of Clotting disorder Chronic kidney disease (CKD) Suicide Anesthesia complication Bleeding disorder Cancer Social History Smoking and tobacco/nicotine status: never used tobacco/nicotine Alcohol intake: never Substance/Drug Use: never Lives independently: Yes Household members: spouse service: No Current occupational status: retired Current occupation: [employer] Physical Exam Const: COMMON NORMALS: no acute distress, patient oriented x3 and no limitations GENERAL APPEARANCE: cooperative, comfortable and well developed ORIENTATION/CONSCIOUSNESS: Yes awake, Yes oriented to person, Yes oriented to place and Yes oriented to time OTHER: Nontoxic HENMT: OTHER: 2.5 cm laceration to right eyebrow with no active bleeding, superficial Eye: COMMON NORMALS: Equal, round and reactive pupils present, EOMs intact bilaterally and conjunctivae normal CONJUNCTIVA: Yes conjunctivae normal PUPIL: Yes Equal, round and reactive pupils present Neck/C-Spine: COMMON NORMALS: full ROM, supple and no JVD OTHER: No cervical spine tenderness to palpation Resp: COMMON NORMALS: normal respiratory effort, No retractions, No use of accessory muscles and clear to auscultation bilaterally AUSCULTATION: clear to auscultation bilaterally Cardio: COMMON NORMALS: no JVD, regular rate, regular rhythm, No clicks present (Cardio), No murmurs present (Cardio) and No rub (Cardio) RATE: regular rate RHYTHM: regular rhythm GI: COMMON NORMALS: Normal to inspection, nondistended, normoactive bowel sounds present, Soft to palpation and non-tender AUSCULTATION: Yes normoactive bowel sounds PALPATION: Yes Soft to palpation RECTAL EXAM: Yes deferred Extremity: COMMON NORMALS: normal to inspection, full ROM and capillary refill normal Neuro: COMMON NORMALS: patient oriented x3, CN's II-XII intact bilaterally, moves all extremities, no focal motor deficits and no sensory deficits noted SENSORIUM/ORIENTATION: Yes oriented to person, Yes oriented to place and Yes oriented to time Procedures Laceration Laceration 1: Site: face Side (If applicable): right Size (cm): 2.5 Description: linear Depth: simple, single layer Local Anesthetic: lidocaine 2% Amount of anesthesia used (mL): 2 Pre-repair: wound explored and irrigated extensively Skin layer closed with: nylon Size (cm): 5-0 Number of sutures: 5 Technique: simple, interrupted Course Vital Signs: Vital signs: Vital Signs Temperature 97.8 F 06/29/25 14:14 Pulse Rate 80 06/29/25 14:14 Respiratory Rate 18 06/29/25 14:14 Blood Pressure 143/94 06/29/25 14:14 Pulse Oximetry 94 06/29/25 14:14 Oxygen Delivery Me thod Room Air 06/29/25 14:14 MDM - Wound/Laceration Medical Decision Making Patient presented for evaluation of a fall out of bed, with downtime of 2 hours. This was an accidental fall as he states he was rolling out of bed to get up and fell striking his right periorbital region. He has sutures placed to the laceration here, refer to the procedure note. He does have a history of Lewy body dementia family arrives and states that he is at his baseline. Patient complained of no symptoms here. He had no focal neurological deficit at time of examination. Head and neck CT overall unremarkable for any acute findings. His blood work is normal including normal CPK and no evidence of a kidney injury. After repair of the laceration he will be discharged home with general wound care discussed and strict return precautions of which family endorses understanding. Lab Data 06/29/25 14:43 06/29/25 14:43 Radiology Impressions Cervical Spine CT 06/29/25 14:21 IMPRESSION: There are multilevel degenerative changes present of the cervical spine with no fracture or dislocation appreciated. Head CT 06/29/25 14:21 IMPRESSION: 1. No interval layering hemorrhage or cranial fracture, intracranial posttraumatic changes are appreciated with the anterior periorbital right soft tissue swelling correspondingly. 2. There are multifocal areas of white matter, lacunar and encephalomalacia change which appear relatively similar overall. There does appear to be some interval asymmetry for example about the right basal ganglia, external capsular periventricular margin. This could represent chronicity although with the appearance in the interval, some subacute underlying change can not entirely be excluded. If there are associated clinical, neurologic findings then consider MRI. Laboratory Results WBC 8.40 10^3/uL (3.29-11.43) 06/29/25 14:43 RBC 5.26 10^6/uL (3.85-5.65) 06/29/25 14:43 Hgb 13.80 g/dL (11.27-16.99) 06/29/25 14:43 Hct 43.9 % (37-53) 06/29/25 14:43 MCV 83.5 fl (82-101) 06/29/25 14:43 MCH 26.2 pg (27-33) L 06/29/25 14:43 MCHC 31.4 g/dL (30-55) 06/29/25 14:43 RDW 14.1 % (12.1-15.1) 06/29/25 14:43 Plt Count 210 10^3/cmm (157-399) 06/29/25 14:43 MPV 10.6 fL (7.4-10.4) H 06/29/25 14:43 Neut % (Auto) 69.3 % 06/29/25 14:43 Lymph % (Auto) 16.2 % 06/29/25 14:43 [place] % (Auto) 8.5 % 06/29/25 14:43 Eos % (Auto) 4.3 % 06/29/25 14:43 Baso % (Auto) 1.3 % 06/29/25 14:43 Neut # (Auto) 5.83 10^3/uL (1.8-7.7) 06/29/25 14:43 Lymph # (Auto) 1.4 10^3/uL (0.8-4.8) 06/29/25 14:43 [place] # (Auto) 0.7 10^3/uL (0.2-0.9) 06/29/25 14:43 Eos # (Auto) 0.4 10^3/uL (0.0-0.8) 06/29/25 14:43 Baso # (Auto) 0.1 10^3/uL (0.0-0.1) 06/29/25 14:43 Nucleated RBC % (auto) 0 % 06/29/25 14:43 Nucleated RBCs # 0.0 /100WBC 06/29/25 14:43 Sodium 134 mmol/L (136-145) L 06/29/25 14:43 Potassium 4.0 mmol/L (3.5-5.1) 06/29/25 14:43 Chloride 100 mmol/L (98-107) 06/29/25 14:43 Carbon Dioxide 22 mmol/L (22-29) 06/29/25 14:43 Anion Gap 16.0 (5-19) 06/29/25 14:43 BUN 11 mg/dL (8-23) 06/29/25 14:43 Creatinine 1.0 mg/dL (0.7-1.2) 06/29/25 14:43 GFR Calculation Not Reportable 06/29/25 14:43 Glucose 382 mg/dL (65-115) H 06/29/25 14:43 Calculated Osmolality 293 mOsm/kg (285-295) 06/29/25 14:43 Calcium 9.4 mg/dL (8.5-10.5) 06/29/25 14:43 Total Bilirubin 0.6 mg/dL (0.15-1.2) 06/29/25 14:43 AST 14 U/L (0-40) 06/29/25 14:43 ALT 14 U/L (0-41) 06/29/25 14:43 Alkaline Phosphatase 96 U/L (40-130) 06/29/25 14:43 Creatine Kinase 142 U/L (39-308) 06/29/25 14:43 Total Protein 7.2 g/dL (6.6-8.7) 06/29/25 14:43 Albumin 3.8 g/dL (3.5-5.2) 06/29/25 14:43 Globulin 3.4 g/dL (1.3-4.6) 06/29/25 14:43 All radiology interpretation(s) finalized by discharge Discharge Plan Discharge Patient Disposition: Home Clinical Impression: Simple laceration of periorbital region of right eye Fall Qualifiers: Encounter type: initial encounter Qualified Code(s): W19.XXXA - Unspecified fall, initial encounter Condition: Stable Prescriptions: No Action aspirin 81 mg tablet,delayed release (DR/EC) 81 mg PO DAILY Ultra CoQ10 75 mg capsule 300 mg PO DAILY mecobalamin (vitamin B12) 5,000 mcg tablet,disintegrating 5,000 mcg PO DAILY (DME) diabetic shoes See Rx Instructions .Route .MEDSUPPLY Qty: 1 0RF Rx Instructions: As directed (DME) custom heat molded inserts See Rx Instructions .Route .MEDSUPPLY Qty: 1 0RF Rx Instructions: As directed (DME) diabetic shoes with 3 custom inserts See Rx Instructions .Route .MEDSUPPLY Qty: 1 0RF Rx Instructions: As directed (DME) diabetic shoes with 3 inserts See Rx Instructions .Route .MEDSUPPLY Qty: 1 0RF Rx Instructions: As directed to the shoe maurizio Novolin 70-30 FlexPen U-100 100 unit/mL (70-30) insulin pen 55 unit SUBCUT BID 30 Days Qty: 33 0RF galantamine 4 mg tablet 4 mg PO BID 90 Days Qty: 180 1RF Rx Instructions: administer with AM and PM meals (DME) insulin syringe-needle U-100 [BD Insulin Syringe Safety-Rey] 1 mL 29 gauge x 1/2 syringe See Rx Instructions .Route Qty: 500 0RF Rx Instructions: Inject insulin, Twice, daily. disopyramide phosphate 150 mg capsule See Rx Instructions .ROUTE .COMPLEX Qty: 120 3RF Dose Instruction: TAKE 1 CAPSULE BY MOUTH TWICE DAILY SPACE DOSES OUT EVENLY DURING WAKING HOURS Rx Instructions: TAKE 1 CAPSULE BY MOUTH TWICE DAILY SPACE DOSES OUT EVENLY DURING WAKING HOURS (DME) FreeStyle Robert 3 Sensor Device See Rx Instructions .Route Qty: 2 0RF Rx Instructions: As directed topiramate 50 mg tablet 50 mg PO DAILY Qty: 90 0RF furosemide [Lasix] 20 mg tablet 20 mg PO DAILY Qty: 30 0RF potassium chloride 8 mEq capsule, extended release 8 meq PO DAILY Qty: 30 0RF finasteride 5 mg tablet 5 mg PO DAILY atorvastatin 20 mg tablet 20 mg PO DAILY metoprolol succinate 50 mg tablet extended release 24 hr 50 mg PO DAILY clopidogrel 75 mg tablet 75 mg PO DAILY pantoprazole 20 mg tablet,delayed release (DR/EC) 20 mg PO DAILY tamsulosin 0.4 mg capsule 0.4 mg PO BID gabapentin 300 mg capsule 300 mg PO BID fluoxetine 20 mg capsule 20 mg PO DAILY quetiapine 50 mg tablet 50 - 100 mg PO Q4H PRN (Reason: hallucinations) Discharge Orders: Discharge ED (Routine); Ordered 06/29/25 Ordered By: Shiva Aguiar Referrals: Tisha Funk MD [Primary Care Provider, Family Practice] Patient Instructions: Patient Portal & [facility] Instructions Activity Restrictions/Additional Instructions: Discharge Instructions: Fall with Periorbital Laceration DIAGNOSIS: Fall with laceration to right periorbital (around the eye) region WHAT HAPPENED: You were evaluated in the emergency department after falling out of bed and sustaining a cut near your right eye. Your CT scans of the head and neck showed no fractures or bleeding. Your neurological examination was normal, and your blood work was reassuring. We placed 5 sutures to close the laceration. WOUND CARE: - Keep the wound clean and dry for the first 24-48 hours - After 48 hours, you may gently wash the area with mild soap and water, but do not scrub or soak the wound - Apply a thin layer of antibiotic ointment (such as bacitracin or Polysporin) to the wound 2-3 times daily to prevent infection and scab formation - Keep the area covered with a clean, non-stick bandage for the first 2-3 days - Avoid exposing the wound to direct sunlight to reduce scarring SUTURE REMOVAL: - Your sutures must be removed in 3-5 days because facial sutures need to come out sooner than sutures on other parts of the body - Please schedule an appointment with your primary care doctor or return to the emergency department for suture removal - Do not attempt to remove the sutures yourself WATCH FOR SIGNS OF INFECTION: Contact your doctor or return to the emergency department if you notice: - Increasing redness, warmth, or swelling around the wound - Pus or drainage from the wound - Fever over 100.4?F (38?C) - Red streaks extending from the wound - Increasing pain that is not controlled with [id number] pain medication WARNING SIGNS - RETURN TO THE EMERGENCY DEPARTMENT IMMEDIATELY IF YOU EXPERIENCE: - Worsening or severe headache - Repeated vomiting - Increasing confusion or difficulty waking up - Seizures or convulsions - Weakness or numbness in arms or legs - Slurred speech - Vision changes or double vision - Clear fluid draining from nose or ears - Unequal pupil sizes - Loss of consciousness FALL PREVENTION: Because you have a history of Lewy body dementia and have now experienced a fall, it is important to take steps to prevent future falls: - Home Safety: Remove tripping hazards such as loose rugs, electrical cords, and clutter. Ensure adequate lighting throughout your home, especially at night. Consider installing grab bars in the bathroom and handrails on stairs - Bed Safety: Since you fell out of bed, consider using bed rails or placing the mattress closer to the floor - Physical Therapy: Ask your doctor about a referral to physical therapy for balance and strength training, which can help reduce fall risk - Medication Review: Have your doctor review all your medications, as some medications can increase fall risk - Assistive Devices: Consider using a walker or cane if recommended by your doctor - Supervision: Given your dementia diagnosis, you may benefit from increased supervision, especially during activities like getting in and out of bed ACTIVITY: - Avoid strenuous activity for the next few days - Do not drive until cleared by your doctor - Have someone stay with you for the next 24-48 hours to monitor for any changes FOLLOW-UP: - Schedule an appointment with your primary care doctor within 3-5 days for suture removal and fall risk assessment - Discuss fall prevention strategies and possible physical therapy referral with your doctor MEDICATIONS: - You may take acetaminophen (Tylenol) for pain as directed on the package - Avoid aspirin and ibuprofen for the next few days unless specifically instructed by your doctor, as these can increase bleeding risk - Continue all your regular medications as prescribed If you have any questions or concerns, please contact your primary care doctor or return to the emergency department. Print Language: Yakut Coding Level of Care Code ED Health Screener for Harriet Nicolas
--- OUTSIDE RECORDS SUMMARY | 2025-06-29 14:37 | XMS_ITS | Patient Health Record ---
Author Organization [facility] Address [address] [place] [address] Care Team Providers Care Electronics Engineering Professor Name Role Phone Tisha Funk Primary Care Provider Unavailab RAHEEL Davidson Unavailable [phone] VAL PATEL Unavailable [phone] ELLE GUSMAN Unavailable [phone] Allergies Allergen (clinical drug ingredient) Drug/Non Drug Allergy documented on EMR Reaction Allergy Type Onset Date Status amoxicillin Amoxicillin Unknown Drug Allergy Act mayank Substance with penicillin structure and antibacterial mechanism of action (substance) Penicillins Unknown Drug Allergy Active Results Component Value Reference Range Flag Notes UBASE - Urinary Tract Infect ion (HTRx) Reviewed date:11/15/2024 01:29:41 PM Interpretation: Performing Lab:, [facility], [place], Phone - [phone], Director - [phone] Notes/Report: Real-Time polymerase chain reaction (TaqMan qPCR) was utilized for detection for all tested organisms and resistance genes. Initiation of antimicrobial therapy prior to testing may affect results and can lead to the detection of non-living microorganisms. Detection of microbes must be correlated with current/recent antibiotic usage and patient signs and symptoms. Microbial sensitivity testing is not performed at this lab. Senior Service Aide to CFU/mL equivalent thresholds were established based on studies using known CFU/mL urine specimens performed at [facility] in [place], [place]. Testing performed by [facility] ([place] [address]; IA# [id number]; Button Sawyer More Beltran, PhD, [facility])). This test was developed, and its performance characteristics determined by [employer]. It has not been cleared or approved [...] Acinetobacter baumannii 0.000 19.961 - 24.689 ppm N Acinetobacter baumannii Not Detected 19.961 - 24.689 ppm N Citrobacter freundii 0.000 23.000 - 31.881 ppm N Citrobacter freundii Not Detected 23.000 - 31.881 ppm N Enterobacter aerogenes, cloacae 0.000 23.000 - 31.535 ppm N Enterobacter aerogenes, cloacae Not Detected 23.000 - 31.535 ppm N Enterococcus faecalis, faecium 0.000 26.000 - 31.575 ppm N Enterococcus faecalis, faecium Not Detected 26.000 - 31.575 ppm N Escherichia coli 0.000 23.000 - 28.500 ppm N Escherichia coli Not Detected 23.000 - 28.500 ppm N Klebsiella pneumoniae, oxytoca 0.000 23.000 - 30.500 ppm N Klebsiella pneumoniae, oxytoca Not Detected 23.000 - 30.500 ppm N Morganella morganii 0.000 19.961 - 24.689 ppm N Morganella morganii Not Detected 19.961 - 24.689 ppm N Proteus mirabilis, vulgaris 0.000 23.000 - 28.500 ppm N Proteus mirabilis, vulgaris Not Detected 23.000 - 28.500 p pm N Pseudomonas aeruginosa 0.000 23.000 - 28.500 ppm N Pseudomonas aeruginosa Not Detected 23.000 - 28.500 ppm N Staphylococcus aureus 0.000 26.000 - 30.902 ppm N Staphylococcus aureus Not Detected 26.000 - 30.902 ppm N Streptococcus agalactiae (Group B Strep) 0.000 26.000 - 32.222 ppm N Streptococcus agalactiae (Group B Strep) Not Detected 26.000 - 32.222 ppm N Jeet albicans, parapsilosis, tropicalis 0.000 19.961 - 30.770 ppm N Jeet albicans, parapsilosis, tropicalis Not Detected 19.961 - 30.770 ppm N Jeet glabrata (Nakaseomyces glabratus) 27.354 23.000 - 32.138 ppm A Jeet glabrata (Nakaseomyces glabratus) Detected 23.000 - 32.138 ppm A Jeet krusei (Pichia kudriavzevii) 0.000 23.000 - 32.271 ppm N Jeet krusei (Pichia kudriavzevii) Not Detected 23.000 - 32.271 ppm N Serratia marcescens 0.000 23.000 - 31.204 ppm N Serratia marcescens Not Detected 23.000 - 31.204 ppm N Streptococcus pyogenes (Grou p A strep) 0.000 19.961 - 24.689 ppm N Streptococcus pyogenes (Grou p A strep) Not Detected 19.961 - 24.689 ppm N Staphylococcus saprophyticus 0.000 19.961 - 24.689 pp m N Staphylococcus saprophyticus Not Detected 19.961 - 24.689 ppm N Staphylococcus epidermidis, haemolyticus, lugdunensis 0.000 19.961 - 24.689 ppm N Staphylococcus epidermidis, haemolyticus, lugdunensis Not Detected 19.961 - 24.689 ppm N UTI Pathogen Panel PCR Reviewed date:07/09/2024 04:02:19 PM Interpretation: Performing Lab: Notes/Report: Urinalysis, Routine Reviewed date:07/05/2024 03:49:39 PM Interpretation: Performing Lab: Notes/Report: Urine-Color Light yellow Appearance slightly cloudy Glucose 3+ Bilirubin - Ketones - Specific [place] 1.015 Occult Blood 2+ pH 6.0 Urine Protein 1+ Urobilinogen,Semi-Qn 0.2 Nitrite, Urine - WBC Esterase 1+ Gx - Recurrent Persistent Co mplicated UTI Reviewed date:09/17/2024 09:18:45 AM Interpretation: Performing Lab:, [id number] Notes/Report: PatientName: : Gender: PatientRelation: PatientAddress: , , , InsuranceName: InsuranceCode: Test Result: Guidance 7.0, Catheterized Urine, UTI Surgical, Test Result: PATHOGENIC DNA DETECTED#A*F UTIAbnormalFlag: Guidance 7.0, Catheterized Urine, UTI Surgical, UTIAbnormalFlag: A A UTI Resistance Panel PCR Reviewed date:07/09/2024 04:04:45 PM Interpretation: Performing Lab: Notes/Report: Urinalysis, Routine Reviewed date:03/13/2025 10:54:25 AM Interpretation: Performing Lab: Notes/Report: Urine-Color plae yellow Appearance cloudy Glucose 2+ Bilirubin - Ketones - Specific [place] 1.010 Occult Blood - pH 6.5 Urine Protein - Urobilinogen,Semi-Qn - Nitrite, Urine - WBC Esterase 2+ Reason For Referral Reason Referral to Dr Schulz - 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) Referral Organization [employer] Referring Provider First Name ELLE Referring Provider Last Name NASEEM Referring Provider [facility]erred Provider Specialty Infectious D isease Referral Priority Routine Medications Medication SIG (Take, Route, Frequency, Duration) Notes Start Date End Date Status Tamsulosin HCl 0.4 MG Capsule 1 capsule Orally Once a day; Duration: 90 days 04/19/2024 03/08/2026 Active Finasteride 5 MG Tablet Take 1 tablet by mouth once daily Orally daily; Duration: 90 days Active Metoprolol Succinate 50 MG Capsule ER 24 Hour Sprinkle 1 capsule Orally Once a day Active Gabapentin 300 MG Capsule 1 capsule Oral ly Once a day Active FLUoxetine HCl 20 MG Capsule 1 capsule Orally Once a day Active Clopidogrel Bisulfate 75 MG Tablet 1 tablet Orally Once a day Active Atorvastatin Calcium 20 MG Tablet 1 tablet Orally Once a day Active NovoLIN 70/30 (70-30) 100 UNIT/ML Suspension as directed Subcutaneous Active Disopyramide Phosphate 100 MG Capsule as directed Orally Active Lyrica 75 MG Capsule 1 capsule Orally On ce a day Active Docusate Sodium 100 MG Capsule 1 capsule as needed Orally Once a day Active Tamsulosin HCl 0.4 MG Capsule 1 capsule Orally Once a day Active Topiramate 50 MG Tablet 1 tablet Orally Once a day Active Pantoprazole Sodium 20 MG Tablet Delayed Release 1 tablet 1/2 to 1 hour before morning meal Orally Once a day Active Social History Tobacco Use: Social History Observation Description Date Details (start date - stop date) Never Smoker NA - NA Social History Drug/Alcohol: Social Info Question Answer Notes AUDIT-C (Standard) Did you have a drink containing alcohol in the past year? No Points 0 Interpretation Negative Tobacco Use: Social Info Question Answer Notes Tobacco Control (Standard) Tobacco use: Nonsmoker Additional Details Category Social Info Options Details Drug/Alcohol: Do you smoke marijuana? Den ies Problems Problem Type SNOMED Code ICD Code Onset Dates Problem Status W/U Status Risk Notes Problem Urge incontinence of urine (57802735) Urge incontinence (N39.41) Active confirmed Problem Phimosis (911301799) Phimosis (N47.1) Active confirmed Problem Lower urinary tract symptoms due to benign prostatic hypertrophy (53438488138334) Benign prostatic hyperplasia with lower urinary tract symptoms (N40.1) Active confirmed Problem Urinary hesitancy (9002915) Urinary hesitancy (R39.11) Active confirmed Problem Encounter for Beltrán catheter replacement (Z46.6) Active confirmed Problem Catheterization of urinary bladder (565097918) Beltrán catheter in place (Z96.0) Active confirmed Problem Redundant prepuce and phimosis (318793061) Phimosis of penis (N47.1) Active confirmed Problem Disorder due to type 2 diabetes mellitus (199223933) Type 2 diabetes mellitus with complication (E11.8) Active confirmed Vital Signs Heart Rate 64 /min 03/13/2025 Height-cm 175.26 cm 03/13/2025 Blood pressure diastolic 76 mm Hg 03/13/2025 Weight-kg 79.38 kg 03/13/2025 Height 69 in 03/13/2025 Blood pressure systolic 138 mm Hg 03/13/2025 Weight 175 lbs 03/13/2025 BMI 25.84 kg/m2 03/13/2025 Procedures Procedure Date Ordered Date Performed Result Body Sit e SP Tube Change 07/05/2024 07/05/2024 N/A SP Tube Change 08/02/2024 08/09/2024 N/A SP Tube Change 08/30/2024 08/30/2024 N/A SP Tube Change 09/26/2024 09/26/2024 N/A SP Tube Change 10/17/2024 N/A Cathter Insertion, COMPLEX 11/14/2024 11/14/2024 N/A SP Tube Change 12/17/2024 12/17/2024 N/A Voiding Trial 02/11/2025 N/A Bladder Scan 02/11/2025 N/A Bladder Scan 03/13/2025 03/13/2025 N/A Encounters Encounter Location Date Provider Diagnosis [facility] [address] [place] [address] 01/23/2025 ELLE REANO [facility] [address] [place] [address] 07/05/2024 ELLE REANO Urinary retention R3 3.9 and Complicated UTI (urinary tract infection) N39.0 [facility], [facility] [address] [place] [address] 08/02/2024 RAHEEL MARTÍNEZ Urinary retention R3 3.9 and Complicated UTI (urinary tract infection) N39.0 [facility] [address] [place] [address] 08/30/2024 RAHEEL MARTÍNEZ Phimosis of penis N4 7.1 and Beltrán catheter in place Z96.0 [facility], [facility] [address] [place] [address], [place] [address] 09/26/2024 ELLE REANO Phimosis of penis N4 7.1 and Urinary retention R33.9 [facility] [address] [place] [address], [place] [address] 10/17/2024 VAL PATEL Complicated UTI (urinary tract infection) N39.0 and Dysuria R30.0 [facility] [address] [place] [address], [place] [address] 11/14/2024 ELLE REANO Urinary retention R3 3.9 and Cloudy urine R82.90 [facility] [address] [place] [address], [place] [address] 12/17/2024 ELLE REANO Urinary retention R3 3.9 and Beltrán catheter in place Z96.0 [facility], [facility] [address] [place] [address], [place] [address] 02/11/2025 RAHEEL MARTÍNEZ Phimosis of penis N4 7.1 ; Urinary retention R33.9 ; Uncircumcised male Z78.9 ; Beltrán catheter in place Z96.0 ; Type 2 diabetes mellitus with complication E11.8 ; History of CVA (cerebrovascular accident) without residual deficits Z86.73 ; Recent urinary tract infection Z87.440 ; Cloudy urine R82.90 and Benign prostatic hyperplasia with lower urinary tract symptoms N40.1 [facility], [facility] [address] [place] [address] 03/13/2025 ELLE GUSMAN Urinary urgency R39. 15 ; Nocturia R35.1 ; Uncircumcised male Z78.9 ; Incomplete bladder emptying R33.9 ; Type 2 diabetes mellitus with complication E11.8 ; History of CVA (cerebrovascular accident) without residual deficits Z86.73 ; History of urinary retention Z87.898 and Benign prostatic hyperplasia with lower urinary tract symptoms N40.1 [facility], [facility] [address] [place] [address] 07/10/2024 [facility], [facility] [address] [place] [address] 09/10/2024 [facility] [address] [place] [address] 09/17/2024 [facility], [facility] [address] [place] [address] 11/15/2024 [facility], [facility] [address] [place] [address] 04/19/2025 [facility], [facility] [address] [place] [address] 04/19/2025 [facility] Assessments Encounter Date Diagnosis (ICD Code) Assessment Notes Treatment Notes Treatment Clinical Notes Section Notes 03/13/2025 Urinary urgency (ICD-10 - R39.15) 02/11/2025 Phimosis of penis (ICD-10 - N47.1) 80 yo male with BPH, Urinary retention, h/o phimosis. Cysto shows open bilobar prostate. Plan: continue flomax and proscar [place] today RTC in 4 weeks with IPSS, PVR, and UA with Elle Gusman APRN 11/14/2024 Urinary retention (ICD-10 - R33.9) Per Dr Martínez, pt here today for 4 week beltrán change.Dr Martínez was not in the office today, procedure [...] Dysuria (ICD-10 - R30.0) Pt here today fo r routine cath change and for UA PCR for follow up from previous infection. 10/17/2024 Complicated UTI (urinary tract infection) (ICD-10 - N39.0) Pt here today f or routine cath change and for UA PCR for follow up from previous infection. 12/17/[address] (ICD-10 - [...] in-office for further evaluation of the anatomy. 08/02/2024 Urinary retention (ICD-10 - R33.9) Pt here for routine beltrán change, tolerated well and will return in 4wks for repeat. 09/26/2024 Phimosis of penis (ICD-10 - N47.1) [...] 08/30/2024 Phimosis of penis (ICD-10 - N47.1) 07/05/2024 Complicated UTI (urinary tract infection) (ICD-10 - N39.0) Pt here for fol ey catheter exchange. He tolerated well. He is [...] retention (ICD-10 - R33.9) Pt here for fol ey catheter exchange. He tolerated well. He is [...] unless surgical intervention has been done otherwise. 08/02/2024 Complicated UTI (urinary tract infection) (ICD-10 - N39.0) Pt here for routine beltrán change, tolerated well and will return in 4wks for repeat. 11/14/2024 Cloudy urine (ICD-10 - R82.90) Per Dr Martínez, pt here today for 4 week beltrán change.Dr Martínez was not in the office today, procedure [...] pcr 03/13/2025 Nocturia (ICD-10 - R35.1) 02/11/2025 Urinary retention (ICD-10 - R33.9) 80 yo male with BPH, Urinary retention, h/o phimosis. Cysto shows open bilobar prostate. Plan: continue flomax and proscar [place] today RTC in 4 weeks with IPSS, PVR, and UA with Elle Gusman APRN 02/11/2025 Uncircumcised male (ICD-10 - Z78.9) 80 yo male with BPH, Urinary retention, h/o phimosis. Cysto shows open bilobar prostate. Plan: continue flomax and proscar [place] today RTC in 4 weeks with IPSS, PVR, and UA with Elle Gusman APRN 03/13/2025 Uncircumcised male (ICD-10 - Z78.9) 02/11/[address] (ICD-10 - Z96.0) 80 yo male with BPH, Urinary retention, h/o phimosis. Cysto shows open bilobar prostate. Plan: continue flomax and proscar [place] today RTC in 4 weeks with IPSS, PVR, and UA with Elle Gusman APRN 03/13/2025 Incomplete bladder emptying (ICD-10 - R33.9) 03/13/2025 Type 2 diabetes mellitus with complication (ICD-10 - E11.8) 02/11/2025 Type 2 diabetes mellitus with complication (ICD-10 - E11.8) 80 yo male with BPH, Urinary retention, h/o phimosis. Cysto shows open bilobar prostate. Plan: continue flomax and proscar [place] today RTC in 4 weeks with IPSS, PVR, and UA with Elle YOLIS GusmanN 03/13/2025 History of CVA (cerebrovascular accident) without residual deficits (ICD-10 - Z86.73) 02/11/2025 History of CVA (cerebrovascular accident) without residual deficits (ICD-10 - Z86.73) 80 yo male with BPH, Urinary retention, h/o phimosis. Cysto shows open bilobar prostate. Plan: continue flomax and proscar [place] today RTC in 4 weeks with IPSS, PVR, and UA with Elle YOLIS GusmanN 02/11/2025 Recent urinary tract infection (ICD-10 - Z87.440) 80 yo male with BPH, Urinary retention, h/o phimosis. Cysto shows open bilobar prostate. Plan: continue flomax and proscar [place] today RTC in 4 weeks with IPSS, PVR, and UA with Elle JERONIMO Gusman 03/13/2025 History of urinary retention (ICD-10 - Z87.898) 02/11/2025 Cloudy urine (ICD-10 - R82.90) 80 [...] with IPSS, PVR, and UA with Elle YOLIS GusmanN 03/13/2025 Other UA with 2+ leukocyte, PVR [...] Pathogen Panel PCR 07/05/2024 Electrocardiogram, 12 Lead Tracing-[id number] 05/22/2024 UBASE - Urinary Tract Infection (HTRx) 0 10/17/2024 Next Appt Details Provider Name:ELLE GUSMAN, 0 08/14/2025 11:00:00 AM, [address] [place], [address], Insurance Providers Payer Name Payer Address Payer Phone Subscriber Number Group Number Insured Name Patient Relationship to Insured Coverage Start Date Coverage End Date [place] Medicare [address] SHILPA MAXIMUS ADDISON [id number] Chapito Mijares Self - patient is the insured [employer] [facility] [address] [place] [address] [phone] [id number] Chapito Mijares Self - patient is the [...]
--- OUTSIDE RECORDS SUMMARY | 2025-06-29 14:37 | XMS_ITS | Patient Health Record ---
Author Organization [facility] Address [address] [place] [address] Care Team Providers Care Physical Sciences Instructor Name Role Phone Tisha Funk Primary Care Provider Unavailab Alexsandra Corona Unavailable [phone] Shelley Duffy Unavailable [phone] Allergies Allergen (clinical drug ingredient) Drug/Non Drug Allergy documented on EMR Reaction Allergy Type Onset Date Status Penicillin Unknown Drug Allergy Active Results Component Value Reference Range Flag Notes Microscopic Urine [id number] Reviewed date:12/06/2024 12:05:58 PM Interpretation: Performing Lab: Notes/Report: Diagnosis Description: Candidiasis, unspecified RBC U 22 NA WBC U 614 0-5 /HPF HI Bacteria 3+ NA Hyaline Casts 1 NA SQ EPI 1 NA Budding Yeast Present Culture Urine [id number] Reviewed date:12/06/2024 12:06:04 PM Interpretation: Performing Lab: Notes/Report: Culture Urine Roni BIENVENIDO MURILLO Culture Urine t: Culture Urine Culture Urine [facility] [id number] Culture Urine n: Culture Urine Microbiology Culture [...] Urine O1: Culture Urine (C ulture Urine [id number]) Culture Urine Diagnosis Descriptio n: Candidiasis, unspecified Reason For Referral Reason jesi glabrata inf ection 6/ Diagnosis 1 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) Referral Organization [facility] Referring Provider First Name Elle Referring Provider Last Name Andrés Referring Provider Speciality Urology Referred Organization [facility] Referred Provider Alexsandra Marks Referred Address [address] [place] [address], Referred Provider Specialty Nurse Stefan Cardozo Notes [...] UNIT/ML Suspension Subcutaneous; Duration: 30 Days Active Social History Tobacco Use: Social History [...] Hyperglycemia due to type 2 diabetes mellitus (959052987117158) Uncontrolled type 2 diabetes mellitus with hyperglycemia (E11.65) Active confirmed Problem Cardiac pacemaker (76979124) Cardiac pacemaker (Z95.0) Active confirmed Vital Signs Heart Rate 79 /min 12/17/2024 Temperature 97.2 degrees Fahrenheit 12/17/2024 Respiratory Rate 17 /min 12/17/2024 Blood pressure diastolic 76 mm Hg 12/17/2024 Oximetry 99 % 12/17/2024 Height-cm 175.26 cm 12/17/2024 Weight-kg 83.8 kg 12/17/2024 Height 69 in 12/17/2024 Blood pressure systolic 128 mm Hg 12/17/2024 Weight 184.75 lbs 12/17/2024 BMI 27.28 kg/m2 12/17/2024 Encounters Encounter Location Date Provider Diagnosis [facility] [address] [place] [address], [place] [address] 12/17/2024 Alexsandra Kendrick 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 ; Chronic indwelling Beltrán catheter Z97.8 ; Retention of urine R33.9 ; Uncontrolled type 2 diabetes mellitus with hyperglycemia E11.65 and Recurrent UTI (urinary tract infection) N39.0 [facility] [address] [place] [address], [place] [address] 12/03/2024 Alexsandra Goldfield 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 ; Chronic indwelling Beltrán catheter Z97.8 ; Retention of urine R33.9 and Uncontrolled type 2 diabetes mellitus with hyperglycemia E11.65 [facility] [address] [place] [address], [place] [address] 09/26/2024 Shelley Duffy Cardiac pacemaker Z95.0 [facility] [address] [place] [address] 12/06/2024 Alexsandra Marks Assessments Encounter Date Diagnosis (ICD Code) Assessment Notes Treatment Notes Treatment Clinical Notes Section Notes 12/03/2024 Chronic indwelling Beltrán catheter (ICD-10 - Z97.8) 1. Urinary retention chronic beltrán, followed by Dr. Martínez Uncontrolled T2DM with Hyperglycemia 2. + PCR urine testing with Jesi glabrata, Patient is asymptomatic Discussed with patient needs to work on controlling diabetes and visit with Systems Integration Advisor in order to have circumcision and cystoscopy [...] work on controlling diabetes and visit with Systems Integration Advisor in order to have circumcision and cystoscopy [...] 09/26/2024 Cardiac pacemaker (ICD-10 - Z95.0) 12/17/2024 Chronic indwelling Beltrán catheter (ICD-10 - [...] work on controlling diabetes and visit with Systems Integration Advisor in order to have circumcision and cystoscopy [...] work on controlling diabetes and visit with Systems Integration Advisor in order to have circumcision and cystoscopy [...] work on controlling diabetes and visit with Systems Integration Advisor in order to have circumcision and cystoscopy [...] same day if he becomes symptomatic 12/17/2024 Retention of urine (ICD-10 - R33.9) [...] work on controlling diabetes and visit with Systems Integration Advisor in order to have circumcision and cystoscopy [...] or PRN if any UTI symptoms 12/03/2024 Uncontrolled type 2 diabetes mellitus with hyperglycemia (ICD-10 - E11.65) 1. Urinary retention chronic beltrán, followed by Dr. Martínez Uncontrolled T2DM with Hyperglycemia 2. + PCR urine testing with Jesi glabrata, Patient is asymptomatic Discussed with patient needs to work on controlling diabetes and visit with Systems Integration Advisor in order to have circumcision and cystoscopy [...] work on controlling diabetes and visit with Systems Integration Advisor in order to have circumcision and cystoscopy [...] work on controlling diabetes and visit with Systems Integration Advisor in order to have circumcision and cystoscopy [...] work on controlling diabetes and visit with Systems Integration Advisor in order to have circumcision and cystoscopy 3. Acute UTI (6225) Urine WC 614, UC >100,000 Psa (S; [...] Test Test Name Order Date Culture Urine [id number] 12/17/2024 Microscopic Urine [id number] 12/17/2024 Insurance Providers Payer Name Payer Address Payer Phone Subscriber Number Group Number Insured Name Patient Relationship to Insured Coverage Start Date Coverage End Date [place] Medicare [address] MAXIMUS MALDONADO [phone] [id number] BIENVENIDO MURILLO Self - patient is the insured [employer] [facility] [address] [place] [address] [phone] [id number] LIDIABIENVENIDO Self - patient is the insured Medical (General) History Medical History History ICD Code Diabetes cardiomyopathy measles\ mumps\ chicken pox whooping cough\heart disease bladder infections migraine headache diabetes hypertension infectious mono stroke Surgical History Surgery Date(Month/Year) denies recent Hospitalization History Reason Date(Month/Year) [facility] WP-UTI/unable to void 08.29.2024
--- NOTE | 2025-06-29 14:42 | PC.NURSE ---
irrigated wound to R eye out with sterile water.
[2025-06-29 14:51] LABS: Hematocrit 43.9 % (37-53); Hemoglobin 13.80 g/dL (11.27-16.99); Mean Corpuscular HGB Conc 31.4 g/dL (30-55); Mean Corpuscular Hemoglobin 26.2 pg (27-33); Mean Corpuscular Volume 83.5 fl (82-101); Nucleated Red Blood Cells % 0 %; Platelet Count 210 10^3/cmm (157-399); Red Blood Count 5.26 10^6/uL (3.85-5.65); White Blood Count 8.40 10^3/uL (3.29-11.43)
[2025-06-29] MEDS: lidocaine 2% INJ 20 mL INJECTION (15:04)
[2025-06-29 15:16] LABS: Alanine Aminotransferase 14 U/L (0-41); Albumin Level 3.8 g/dL (3.5-5.2); Alkaline Phosphatase 96 U/L (40-130); Anion Gap 16.0 (5-19); Aspartate Amino Transferase 14 U/L (0-40); Blood Urea Nitrogen 11 mg/dL (8-23); Calcium 9.4 mg/dL (8.5-10.5); Carbon Dioxide 22 mmol/L (22-29); Chloride 100 mmol/L (98-107); Globulin 3.4 g/dL (1.3-4.6); Glucose 382 mg/dL (65-115); Osmolality Calculated 293 mOsm/kg (285-295); Potassium 4.0 mmol/L (3.5-5.1); Sodium 134 mmol/L (136-145); Total Protein 7.2 g/dL (6.6-8.7)
[2025-06-29 16:20] VITALS: BP 163/91; PULSE 80; O2SAT 97
--- OUTSIDE RECORDS SUMMARY | 2025-07-14 18:00 | XMS_ITS | Clinical Summary ---
Author Organization Unknown Care Team Providers Care Gas Mask Inspector Name Role Phone ERNESTINE ORELLANA, JAMILAH Unavailable Unavailable AASHISH PT, TRE Unavailable Unavailable Payers Payer Name Policy Type Policy Number Effective Date Expira tion Date MEDICARE - [facility] [place] [facility] [id number] Problems Condition Name Condition Details Condition Category Status Onset Date Resolution Date Last Treatment Date Treating Clinician Comments TYPE 2 DIABETES MELLITUS WITH DIABETIC NEUROPATHY, UNSP Active 2024-07 00:00: 00 TYPE 2 DIABETES MELLITUS WITH HYPERGLYCEMI A Active 07-04 00:00: 00 JAIL (CURRENT) USE OF INSULIN Active 07-04 00:00: 00 OBSTRUCTIVE HYPERTROPHIC CARDIOMYOPAT HY Active 07-04 00:00: 00 UNSP DEMENTIA, UNSP SEVERITY, WITH OTHER BEHAVIORAL DISTURB Active 07-04 00:00: 00 UNSP DEMENTIA, UNSPECIFIED SEVERITY, WITH MOOD DISTURB Active 07-04 00:00: 00 MAJOR DEPRESSIVE DISORDER, RECURRENT, IN PARTIAL REMISSION Active 07-04 00:00: 00 SEPSIS, UNSPECIFIED ORGANISM Active 07-04 00:00: 00 URINARY TRACT INFECTION, SITE NOT SPECIFIED Active 07-04 00:00: 00 BENIGN PROSTATIC HYPERPLASIA WITH LOWER URINARY TRACT SYMP Active 07-04 00:00: 00 OTHER RETENTION OF URINE Active 07-04 00:00: 00 ESSENTIAL (PRIMARY) HYPERTENSION Active 07-04 00:00: 00 DEHYDRATION Active 07-04 00:00: 00 HYPOKALEMIA Active 07-04 00:00: 00 GASTRO-ESOPH AGEAL REFLUX DISEASE WITHOUT ESOPHAGITIS Active 07-04 00:00: 00 ENCEPHALOPAT HY, UNSPECIFIED Active 07-04 00:00: 00 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 Active 07-04 00:00: 00 MIXED HYPERLIPIDEM IA Active 07-04 00:00: 00 PRESENCE OF AUTOMATIC (IMPLANTABLE ) CARDIAC DEFIBRILLATO R Active 07-04 00:00: 00 EMS INSTRUCTOR (CURRENT) USE OF ASPIRIN Active 07-04 00:00: 00 EMS INSTRUCTOR (CURRENT) USE OF ANTITHROMBOT ICS/ANTIPLAT ELETS Active 07-04 00:00: 00 Allergies, Adverse Reactions, Alerts Allergy Name Allergy Type Status Severity Reaction(s) Onset Date Inactive Date Treating Clinician Comments PENICILLIN Propensity to adverse reactions Active 2024-07 12:41: 36 AMOXICILLIN Propensity to adverse reactions Active 2024-07 12:41: 44 Medications Ordered Medication Name Filled Medication Name Start Date Stop Date Current Medication? Ordering Clinician Indication Dosage Frequency Signature (SIG) Comments Components aspirin 81 mg tablet,von yed release 2024-07 00:00: 00 Yes [id number] 1 tablet DAILY 1 tablet DAILY (route: oral) Med Classific ation: Hematolog ical Agents atorvastati n 20 mg tablet 2024-07 00:00: 00 Yes [id number] 1 tablet DAILY 1 tablet DAILY (route: oral) Med Classific ation: Cardiovas cular Therapy Agents clopidogrel 75 mg tablet 2024-07 00:00: 00 Yes [id number] 1 tablet DAILY 1 tablet DAILY (route: oral) Med Classific ation: Hematolog ical Agents coenzyme Q10 (ubiquinol) 100 mg capsule 2024-07 00:00: 00 Yes [id number] 2 capsule DAILY 2 capsule DAILY (route: oral) Med Classific ation: Alternati ve Therapy disopyramid e phosphate 150 mg capsule 2024-07 00:00: 00 Yes [id number] 1 capsule 2 TIMES DAILY 1 capsule 2 TIMES DAILY (route: oral) Med Classific ation: Cardiovas cular Therapy Agents finasteride 5 mg tablet 2024-07 00:00: 00 Yes [id number] 1 tablet DAILY 1 tablet DAILY (route: oral) Med Classific ation: Genitouri nary Therapy fluoxetine 20 mg capsule 2024-07 00:00: 00 Yes [id number] 1 capsule DAILY 1 capsule DAILY (route: oral) Med Classific ation: Central Nervous System Agents furosemide 20 mg tablet 2024-07 00:00: 00 Yes [id number] 1 tablet DAILY 1 tablet DAILY (route: oral) Med Classific ation: Cardiovas cular Therapy Agents gabapentin 300 mg capsule 2024-07 00:00: 00 Yes [id number] 1 capsule 2 TIMES DAILY 1 capsule 2 TIMES DAILY (route: oral) Med Classific ation: Central Nervous System Agents ibuprofen 200 mg tablet 2024-07 00:00: 00 Yes [id number] 2 tablet 2 TIMES DAILY 2 tablet 2 TIMES DAILY (route: oral) Med Classific ation: Analgesic , Anti-infl ammatory or Antipyret ic mecobalamin (vitamin B12) 5,000 mcg disintegrat ing tablet 2024-07 00:00: 00 Yes [id number] 1 tablet DAILY 1 tablet DAILY (route: oral) Med Classific ation: Electroly te Balance-N utritiona l Products methenamine hippurate 1 gram tablet 2024-07 00:00: 00 Yes [id number] 1 tablet 2 TIMES DAILY 1 tablet 2 TIMES DAILY (route: oral) Med Classific ation: Genitouri nary Therapy metoprolol succinate ER 50 mg tablet,exte nded release 24 hr 2024-07 00:00: 00 Yes [id number] 1 tablet DAILY 1 tablet DAILY (route: oral) Med Classific ation: Cardiovas cular Therapy Agents Novolin 70-30 FlexPen U-100 Insulin 100 unit/mL (70-30) subcutaneou s 2024-07 00:00: 00 Yes [id number] 55 unit 2 TIMES DAILY 55 unit 2 TIMES DAILY (route: subcutaneo us) Med Classific ation: Endocrine pantoprazol e 20 mg tablet,von yed release 2024-07 00:00: 00 Yes [id number] 1 tablet DAILY 1 tablet DAILY (route: oral) Med Classific ation: Gastroint estinal Therapy Agents potassium chloride ER 8 mEq capsule,ext ended release 2024-07 00:00: 00 Yes [id number] 1 capsule DAILY 1 capsule DAILY (route: oral) Med Classific ation: Electroly te Balance-N utritiona l Products tamsulosin 0.4 mg capsule 2024-07 00:00: 00 Yes [id number] 1 capsule DAILY 1 capsule DAILY (route: oral) Med Classific ation: Genitouri nary Therapy topiramate 50 mg tablet 2024-07 00:00: 00 Yes [id number] 1 tablet DAILY 1 tablet DAILY (route: oral) Med Classific ation: Central Nervous System Agents galantamine 4 mg tablet 2024-07 00:00: 00 Yes [id number] 1 tablet 2 TIMES DAILY 1 tablet 2 TIMES DAILY (route: oral) Med Classific ation: Cognitive Disorder Therapy quetiapine 50 mg tablet 2024-07 00:00: 00 Yes [id number] 1-2 tablet EVERY 4 HOURS 1-2 tablet EVERY 4 HOURS (route: oral) Med Classific ation: Central Nervous System Agents Vital Signs Vital Name Observation Time Observation Value Commen ts Temperature 2025-06-12 12:53:00.000 97.2 [degF] Temperature 2025-06-05 08:09:00.000 97.6 [degF] Temperature 2025-06-03 13:51:00.000 97.4 [degF] Temperature 2025-05-29 08:04:00.000 97.6 [degF] Temperature 2025-05-24 08:31:00.000 97.5 [degF] Temperature 2025-05-22 08:36:00.000 97.1 [degF] Temperature 2025-05-17 13:14:00.000 97.5 [degF] BMI (%) 2025-05-17 13:00:42.000 26 kg/m2 Height 2025-05-17 13:00:29.000 69 [in_us] Pulse 2025-06-12 12:53:00.000 60 /min Pulse 2025-06-05 08:09:00.000 76 /min Pulse 2025-06-03 13:51:00.000 82 /min Pulse 2025-05-29 08:04:00.000 80 /min Pulse 2025-05-24 08:31:00.000 60 /min Pulse 2025-05-22 08:36:00.000 92 /min Pulse 2025-05-17 13:14:00.000 60 /min O2 Saturation (%) 2025-06-12 12:53:00.000 98 % O2 Saturation (%) 2025-06-05 08:09:00.000 98 % O2 Saturation (%) 2025-06-03 13:51:00.000 92 % O2 Saturation (%) 2025-05-29 08:04:00.000 100 % O2 Saturation (%) 2025-05-24 08:31:00.000 98 % O2 Saturation (%) 2025-05-22 08:36:00.000 92 % O2 Saturation (%) 2025-05-17 13:14:00.000 98 % Respirations 2025-06-12 12:53:00.000 18 /min Respirations 2025-06-05 08:09:00.000 18 /min Respirations 2025-06-03 13:51:00.000 18 /min Respirations 2025-05-29 08:04:00.000 18 /min Respirations 2025-05-24 08:31:00.000 19 /min Respirations 2025-05-22 08:36:00.000 19 /min Respirations 2025-05-17 13:14:00.000 18 /min Weight (lbs) 2025-05-17 13:00:42.000 178 [lb_av] Systolic Blood Pressure 2025-06-12 12:56:00.000 128 mm [Hg] Systolic Blood Pressure 2025-06-05 08:09:00.000 105 mm [Hg] Systolic Blood Pressure 2025-06-03 13:51:00.000 137 mm [Hg] Systolic Blood Pressure 2025-05-29 08:04:00.000 124 mm [Hg] Systolic Blood Pressure 2025-05-24 08:31:00.000 141 mm [Hg] Systolic Blood Pressure 2025-05-22 08:36:00.000 142 mm [Hg] Systolic Blood Pressure 2025-05-17 13:14:00.000 124 mm [Hg] Diastolic Blood Pressure 2025-06-12 12:56:00.000 71 mm [Hg] Diastolic Blood Pressure 2025-06-05 08:09:00.000 65 mm [Hg] Diastolic Blood Pressure 2025-06-03 13:51:00.000 79 mm [Hg] Diastolic Blood Pressure 2025-05-29 08:04:00.000 78 mm [Hg] Diastolic Blood Pressure 2025-05-24 08:31:00.000 79 mm [Hg] Diastolic Blood Pressure 2025-05-22 08:36:00.000 91 mm [Hg] Diastolic Blood Pressure 2025-05-17 13:14:00.000 66 mm [Hg] Plan of Treatment Planned Activity Planned Date Details Comments Future Scheduled Test PHYSICAL T HERAPIST TO EVALUATE CLIENT FOR PT SERVICES AND DEVELOP PLAN OF CARE FOR PHYSICIAN SIGNATURE TO INCLUDE PHYSICAL ASSESSMENT, ESTABLISHMENT OF A PLAN OF TREATMENT OF TYPE 2 DIABETES MELLITUS WITH DIABETIC NEUROPATHY, UNSP, TYPE 2 DIABETES MELLITUS WITH HYPERGLYCEMIA, EMS INSTRUCTOR (CURRENT) USE OF INSULIN, OBSTRUCTIVE HYPERTROPHIC CARDIOMYOPATHY, UNSP DEMENTIA, UNSP SEVERITY, WITH OTHER BEHAVIORAL DISTURB, UNSP DEMENTIA, UNSPECIFIED SEVERITY, WITH MOOD DISTURB, REHABILITATION GOALS, AND EVALUATING THE HOME ENVIRONMENT FOR ACCESSIBILITY AND SAFETY AND RECOMMENDING MODIFICATION. PHYSICAL THERAPIST TO PROVIDE NECESSARY TREATMENT/MODALITIES TO ADDRESS THE PATIENT S REHABILITATION, EVANGELICAL, MAINTENANCE NEEDS. TOTAL NUMBER OF PROJECTED THERAPY VISITS FOR EPISODE: 11 [code = PHYSICAL THERAPIST TO EVALUATE CLIENT FOR PT SERVICES AND DEVELOP PLAN OF CARE FOR PHYSICIAN SIGNATURE TO INCLUDE PHYSICAL ASSESSMENT, ESTABLISHMENT OF A PLAN OF TREATMENT OF TYPE 2 DIABETES MELLITUS WITH DIABETIC NEUROPATHY, UNSP, TYPE 2 DIABETES MELLITUS WITH HYPERGLYCEMIA, JAIL (CURRENT) USE OF INSULIN, OBSTRUCTIVE HYPERTROPHIC CARDIOMYOPATHY, UNSP DEMENTIA, UNSP SEVERITY, WITH OTHER BEHAVIORAL DISTURB, UNSP DEMENTIA, UNSPECIFIED SEVERITY, WITH MOOD DISTURB, REHABILITATION GOALS, AND EVALUATING THE HOME ENVIRONMENT FOR ACCESSIBILITY AND SAFETY AND RECOMMENDING MODIFICATION. PHYSICAL THERAPIST TO PROVIDE NECESSARY TREATMENT/MODALITIES TO ADDRESS THE PATIENT S REHABILITATION, EVANGELICAL, MAINTENANCE NEEDS. TOTAL NUMBER OF PROJECTED THERAPY VISITS FOR EPISODE: 11] Future Scheduled Test PHYSICAL T HERAPIST TO EVALUATE PATIENT SECONDARY TO FUNCTIONAL DEFICITS/SAFETY CONCERNS. [code = PHYSICAL THERAPIST TO EVALUATE PATIENT SECONDARY TO FUNCTIONAL DEFICITS/SAFETY CONCERNS.] Future Scheduled Test PHYSICAL T HERAPIST TO ASSESS BEST PRACTICE INTERVENTIONS TO ASSIST PATIENTS TO IMPROVE OR STABILIZE MEDICAL STATUS AND PREVENT RE-HOSPITALIZATION. MEASURES INCLUDING REVIEW AND IDENTIFICATION OF CONCERNS FOR THE FOLLOWING AREAS: DEPRESSION, DRUG REGIMEN, DIABETIC FOOT CARE, ENVIRONMENTAL SAFETY ISSUES AND FALLS, PRESSURE ULCERS, PAIN, AND DISEASE MANAGEMENT. [code = PHYSICAL THERAPIST TO ASSESS BEST PRACTICE INTERVENTIONS TO ASSIST PATIENTS TO IMPROVE OR STABILIZE MEDICAL STATUS AND PREVENT RE-HOSPITALIZATION. MEASURES INCLUDING REVIEW AND IDENTIFICATION OF CONCERNS FOR THE FOLLOWING AREAS: DEPRESSION, DRUG REGIMEN, DIABETIC FOOT CARE, ENVIRONMENTAL SAFETY ISSUES AND FALLS, PRESSURE ULCERS, PAIN, AND DISEASE MANAGEMENT.] Future Scheduled Test PHYSICAL T HERAPY TO ESTABLISH /UPGRADE/DOWNGRADE THERAPEUTIC EXERCISE PROGRAM AND INSTRUCT PATIENT/CAREGIVER ON EXERCISE PRECAUTIONS WITH WRITTEN HOME PROGRAM. MAY INCLUDE AAROM, AROM, RROM APPROPRIATE TO IMPROVE FUNCTIONAL STRENGTH AND RANGE OF MOTION. [code = PHYSICAL THERAPY TO ESTABLISH /UPGRADE/DOWNGRADE THERAPEUTIC EXERCISE PROGRAM AND INSTRUCT PATIENT/CAREGIVER ON EXERCISE PRECAUTIONS WITH WRITTEN HOME PROGRAM. MAY INCLUDE AAROM, AROM, RROM APPROPRIATE TO IMPROVE FUNCTIONAL STRENGTH AND RANGE OF MOTION.] Future Scheduled Test PHYSICAL T HERAPY TO INSTRUCT PATIENT/CAREGIVER ON GAIT TRAINING TECHNIQUES USING APPROPRIATE ASSISTIVE DEVICE, PROPER BODY MECHANICS TO IMPROVE MOBILITY, AND PREVENT INJURY OF PATIENT AND/OR CAREGIVER. [code = PHYSICAL THERAPY TO INSTRUCT PATIENT/CAREGIVER ON GAIT TRAINING TECHNIQUES USING APPROPRIATE ASSISTIVE DEVICE, PROPER BODY MECHANICS TO IMPROVE MOBILITY, AND PREVENT INJURY OF PATIENT AND/OR CAREGIVER.] Future Scheduled Test PHYSICAL T HERAPY TO INSTRUCT PATIENT/CAREGIVER ON BALANCE AND BALANCE STRATEGIES TO IMPROVE SAFE MOBILITY AND REDUCE RISK FOR FALL AND INJURY [code = PHYSICAL THERAPY TO INSTRUCT PATIENT/CAREGIVER ON BALANCE AND BALANCE STRATEGIES TO IMPROVE SAFE MOBILITY AND REDUCE RISK FOR FALL AND INJURY] Goal Patient Goal - TO GET STRONG ER Goal Provider Goal - A PHYSICAL THERAPY EVALUATION WILL BE COMPLETED AND A PLAN OF CARE WILL BE ESTABLISHED FOR THE PHYSICIAN'S SIGNATURE FOR THE ENHANCEMENT OF THE PATIENT'S REHABILITATION, EVANGELICAL, MAINTENANCE POTENTIAL, ELIMINATION OF SAFETY HAZARDS TO INCREASE FUNCTIONAL INDEPENDENCE. Goal Provider Goal - PHYSICAL THERAPY EVALUATION TO BE COMPLETED WITH RECOMMENDATIONS AND/OR WRITTEN TREATMENT PLAN OF CARE ESTABLISHED FOR THE PHYSICIAN S SIGNATURE Goal Provider Goal - PATIENT/CAREGIVER VERBALIZES UNDERSTANDING OF THE INITIAL BEST PRACTICE RECOMMENDATIONS. PHYSICIAN TO BE NOTIFIED APPROPRIATE FOR ANY CHANGES OR COMPLICATIONS THROUGHOUT THE CERTIFICATION PERIOD. Goal Provider Goal - PATIENT/CAREGIVER WILL PERFORM THERAPEUTIC EXERCISE/S AND DEMONSTRATE PARTICIPATION IN A HOME PROGRAM. Goal Provider Goal - PATIENT/CAREGIVER WILL DEMONSTRATE IMPROVED GAIT TECHNIQUES TO MINIMIZE RISK OF INJURY. Goal Provider Goal - PATIENT/CAREGIVER WILL DEMONSTRATE IMPROVED BALANCE AND REDUCE THE RISK OF FALLS AND INJURY. Encounters Start Date/Time End Date/Time Encounter Type Admission Type Attending [facility] Care Facility Care Department Encounter ID Discharge Date Discharge Status Discharge Condition Discharge Reason Percent Goals Met 2025-05-17 00:00:00 2025-07-15 00:00:00 [facility] [place] [id number].44
== END 2025-06-29 16:23 | disposition home or self-care (01) ==
PROVIDERS: Emergency Provider Physician Assistant; PCP Family Medicine
DX: S01.111A Laceration without foreign body of right eyelid and periocular area, initial encounter (principal); Z79.82 Long term (current) use of aspirin; Z79.02 Long term (current) use of antithrombotics/antiplatelets; E78.2 Mixed hyperlipidemia; E11.40 Type 2 diabetes mellitus with diabetic neuropathy, unspecified; Z95.0 Presence of cardiac pacemaker; W06.XXXA Fall from bed, initial encounter
CPT/HCPCS: 12011; 36415; 70450; 72125; 80053; 82550; 85025; 99284; J9999